=== PATIENT | male | born 1940 | race Caucasian/White ===

== ENCOUNTER 2016-10-25 16:45 | Inpatient (IN) | payer MEDICARE, OTHER ==
[2016-10-25] MEDS ORDERED: Sodium Chloride 0.9% 10 ML Syringe FLUSH PRN (17:11)
[2016-10-25] MEDS ORDERED: Acetaminophen 1,000 MG in Premix Bag 1 BAG IV ONE (17:18)
[2016-10-25] MEDS ORDERED: Sodium Chloride 0.9% 1,000 ML IV SCH (17:30)
--- NOTE | 2016-10-25 17:36 | EDM.PDOC ---
ED HPI GENERAL MEDICAL PROBLEM - General Chief Complaint: Abdominal Pain Stated Complaint: ILLNESS [facility]IA [facility] Time Seen by Provider: 10/25/16 16:50 Source of Information: Reports: Patient, Family History Limitations: Reports: Altered Mental Status, Other (Fever, delerium) - History of Present Illness INITIAL COMMENTS - FREE TEXT/NARRATIVE: Patient presents with his via EMS with complaints of fever, confusion, change in mental status since return home from [facility] visit today. Ranjan presented to the clinic today with complaint of abdominal pain and rash. He did not have lab work completed, was treated for lymes disease and sent home. He took one dose of ordered antibiotic. Shortly after his return home today, his fever worsened, he became weak and confused. 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 ) - Related Data Allergies Allergy/AdvReac Type Severity Reaction Status Date / Time adhesive tape Allergy Rash Verified 12/05/15 11:42 glipizide Allergy Other Verified 12/05/15 11:42 Influenza Virus Vaccines Allergy Cannot Verified 12/05/15 15:19 Remember latex Allergy Rash Verified 12/05/15 11:42 metolazone Allergy Other Verified 12/05/15 11:42 morphine AdvReac Hallucinati Verified 12/05/15 15:19 ons Home Meds: Home Meds Albuterol Sulfate [Proair Hfa] 2 puff IH Q6HR 05/21/14 [History] Allopurinol [Zyloprim] 100 mg PO DAILY 05/21/14 [History] Betamethasone Dipropionate [Diprolene 0.05% Oint] 1 applic TOP BID 05/21/14 [ History] Furosemide [Furosemide] 60 mg PO DAILY 05/21/14 [History] Insulin Aspart [NovoLOG] 1 unit SQ ASDIRECTED PRN 05/21/14 [History] Insulin Detemir [Levemir Flextouch] 80 unit SQ BEDTIME 05/21/14 [History] Levothyroxine [Synthroid] 50 mcg PO QAM 05/21/14 [History] Lovastatin [Lovastatin] 80 mg PO BEDTIME 05/21/14 [History] Nitroglycerin [Nitrostat] 0.4 mg SL ASDIRECTED 05/21/14 [History] Warfarin Sodium [Warfarin Sodium] 7.5 mg PO ASDIRECTED 05/21/14 [History] Aspirin [Low Dose Aspirin EC] 81 mg PO DAILY 05/15/15 [History] Fluticasone Propionate [Flonase] 16 gm IN BID 05/15/15 [History] Mupirocin [Bactroban] 22 gm TP TID 05/15/15 [History] Urea [Urea 40% Crm] 28.35 gm TOP BID 05/15/15 [History] Cholecalciferol (Vitamin D3) [Vitamin D3] 2,000 units PO DAILY 12/05/15 [History ] Nortriptyline HCl 75 mg PO BEDTIME 12/05/15 [History] Doxycycline [Vibramycin] 1 tab PO BID 10/25/16 [History] Gabapentin [Gabapentin] 1 tab PO TID 10/25/16 [History] Past Medical History HEENT History: Reports: Allergic Rhinitis, Hard of Hearing, Other (See Below) Other HEENT History: broken nose Cardiovascular History: Reports: CAD, High Cholesterol, Hypertension, [place], Stents Respiratory History: Reports: COPD, PE Genitourinary History: Reports: Other (See Below) Other Genitourinary History: Chronic Kidney Disease Musculoskeletal History: Reports: Fracture Neurological History: Reports: CVA Psychiatric History: Reports: Depression Endocrine/Metabolic History: Reports: Diabetes, Type II, IDDM, Obesity/BMI 30+ Hematologic History: Reports: Blood Transfusion(s) Oncologic (Cancer) History: Reports: Prostate Dermatologic History: Reports: Other (See Below) Other Dermatologic History: rash - Past Surgical History HEENT Surgical History: Reports: Cataract Surgery, Other (See Below) Cardiovascular Surgical History: Reports: Coronary Artery Stent GI Surgical History: Reports: Cholecystectomy Endocrine Surgical History: Reports: Other (See Below) Musculoskeletal Surgical History: Reports: Shoulder Surgery Other Oncologic Surgeries/Procedures: Had radiation for prostate, so far in remission Social & Family History - Tobacco Use Smoking Status *Q: Never Smoker Years of Tobacco use: 18 Packs/Tins Daily: 0.5 Second Hand Smoke Exposure: No - Alcohol Use Days Per Week of Alcohol Use: 7 Number of Drinks Per Day: 3 Total Drinks Per Week: 21 - Recreational Drug Use Recreational Drug Use: No ED ROS GENERAL - Review of Systems Review Of Systems: See Below Constitutional: Reports: Fever, Chills, Malaise, Weakness. Denies: Night Sweats , Diaphoresis HEENT: Reports: No Symptoms Respiratory: Reports: Shortness of Breath. Denies: Wheezing, Pleuritic Chest Pain, Cough, Sputum, Hemoptysis Cardiovascular: Reports: Dyspnea on Exertion, Edema. Denies: Chest Pain, Blood Pressure Problem, Lightheadedness, Orthopnea, Palpitations, PND, Syncope Endocrine: Denies: High Glucose, Low Glucose, Polydypsia, Polyuria GI/Abdominal: Reports: Abdominal Pain, Decreased Appetite, Distension. Denies: Black Stool, Bloody Stool, Constipation, Diarrhea, Difficulty Swallowing, Hematemesis, Melena, Nausea, Vomiting : Reports: Flank Pain, Pain, Other (left flank pain). Denies: Dysuria, Frequency, Hematuria, Incontinence, Urgency Musculoskeletal: Reports: Leg Pain, Joint Pain, Muscle Pain Skin: Reports: Rash, Erythema Neurological: Reports: Confusion, Difficulty Walking, Weakness. Denies: Dizziness, Headache, Numbness, Paresthesia, Syncope, Tingling, Trouble Speaking , Change in Speech, Gait Disturbance Psychiatric: Reports: Confusion. Denies: Agitation, Anxiety, Hallucinations Hematologic/Lymphatic: Reports: No Symptoms Immunologic: Reports: No Symptoms ED EXAM, SEPSIS - Physical Exam Exam: See Below Text/Narrative:: Ranjan is a 76 year old male presenting to the ER with confusion, change in mental status, fever, weakness and erythema to abdomen with abdominal pain. Exam Limited By: Other (Patient alert to self and place, not alert to day or time or situation.) Eye Exam: Bilateral Eye: EOMI, PERRL Ears: Normal External Exam, Normal Canal, Hearing Grossly Normal, Normal TMs Nose: Normal Inspection, Normal Mucosa, No Blood Throat/Mouth: Normal Teeth, Normal Voice, No Airway Compromise, Other (dry mucus membranes. ). No: Bleeding, Lip Swelling, Lip Ulcers Head: Atraumatic, Normocephalic Neck: Normal Inspection, Supple, Non-Tender, Full Range of Motion. No: Lymphadenopathy (R), Lymphadenopathy (L) Respiratory/Chest: No Respiratory Distress, Lungs Clear, Normal Breath Sounds, No Accessory Muscle Use, Chest Non-Tender. No: Accessory Muscle Use, Retractions Cardiovascular: Normal Peripheral Pulses, Regular Rate, Rhythm, No Murmur, No Rub, Other (2+ edema to bilateral lower extremities, no change from baseline normal. ) Peripheral Pulses: 2+: Radial (L), Radial (R), Dorsalis Pedis (L), Dorsalis Pedis (R) GI/Abdominal: Distended, Tenderness, Guarding, Hypoactive Bowel Sounds, Other ( Abdominal pain to abdomen at RUQ, RLQ. Area of erythema covers mid-abdomen across midline, area marked with indelible marker. ) (Male) Exam: No: Inguinal Lymphadenopathy, Penile Lesions, Rash, Scrotum Tenderness (L), Scrotum Tenderness (R), Testicular Tenderness (L), Testicular Tenderness (R) Back: Normal Inspection, Full Range of Motion. No: CVA Tenderness (R), CVA Tenderness (L) Extremities: Non-Tender, Pedal Edema, Leg Pain. No: Joint Swelling, Srikanth's Sign, Mottled, Pallor, Redness Neurological: Confused, Disoriented, Other (Responds to questions, alert to person, not to day, time or situation. ) Psychiatric: Flat Affect Skin: Dry, Erythema, Rash, Other (Rash to abdomen as described above. ) Lymphatic: Bilateral: No Adenopathy Course - Vital Signs Last Recorded V/S: Last Vital Signs Temp 38.0 C 10/25/16 19:55 Pulse 84 10/25/16 19:55 Resp 20 10/25/16 19:55 BP 132/71 10/25/16 19:55 Pulse Ox 93 L 10/25/16 19:55 - Orders/Labs/Meds Orders: Active Orders 24 hr Category Date Time Status EKG Documentation Completion [RC] ASDIRECTED Care 10/25/16 17:11 Active Chest Abdomen Pelvis wo Cont [CT] Stat Exams 10/25/16 18:07 Taken BABESIA MICROTI IGG AND IGM [REF] Stat Lab 10/25/16 17:20 Received CULTURE BLOOD [BC] Stat Lab 10/25/16 17:20 Received CULTURE BLOOD [BC] Stat Lab 10/25/16 17:30 Received CULTURE URINE [RM] Stat Lab 10/25/16 18:52 Received EHRLICHIA CHAFFEENSIS, IGG&IGM [REF] Stat Lab 10/25/16 17:20 Received Sodium Chloride 0.9% [Normal Saline] 1,000 ml Med 10/25/16 17:30 Active IV ASDIRECTED Sodium Chloride 0.9% [Saline Flush] Med 10/25/16 17:11 Active 10 ml FLUSH ASDIRECTED PRN Saline Lock Insert [OM.PC] Routine Oth 10/25/16 17:11 Ordered EKG 12 Lead [EK] Routine Ther 10/25/16 17:11 Ordered Medication Orders Hydrocodone Bitart/Acetaminophen ([place] 325-5 Mg) 1 tab PO Q4H PRN PRN Reason: Pain (moderate 4-6) Albuterol (Ventolin Hfa) 0 gm INH Q6HR OTON[facility]EL Allopurinol (Zyloprim) 100 mg PO DAILY O[facility]EL Aspirin (Halfprin) 81 mg PO DAILY O[facility] Fluticasone Propionate (Flonase) 0 gm KARIN BID OTONIEL Furosemide (Lasix) 60 mg PO DAILY OTONIEL Gabapentin (Neurontin) 300 mg PO TID OTONIEL Gabapentin (Neurontin) 300 - 600 mg PO TID OTONIEL Sodium Chloride (Normal Saline) 1,000 mls @ 250 mls/hr IV ASDIRECTED OTONIEL Last Admin: 10/25/16 18:04 Dose: 250 mls/hr Sodium Chloride (Normal Saline) 1,000 mls @ 125 mls/hr IV ASDIRECTED [facility] Cefazolin Sodium 1,000 mg/ (Sodium Chloride) 50 mls @ 100 mls/hr IV Q6H [facility] Insulin Aspart (Novolog) 1 unit SUBCUT ASDIRECTED PRN PRN Reason: Blood Glucose Insulin Detemir (Levemir) 80 unit SUBCUT BEDTIME [facility] Levothyroxine Sodium (Synthroid) 50 mcg PO QAM OTONIEL Lovastatin (Mevacor) 80 mg PO BEDTIME OTONIEL Mupirocin (Bactroban Oint) 0 gm TOP TID O[facility] Nitroglycerin (Nitrostat) 0.4 mg SL Q5M PRN PRN Reason: CHEST PAIN Non-Formulary Medication (Urea [Urea 40% Crm]) 28.35 gm TOP BID OTONIEL Nortriptyline HCl (Nortriptyline) 75 mg PO BEDTIME OTONIEL Sodium Chloride (Saline Flush) 10 ml FLUSH ASDIRECTED PRN PRN Reason: Keep Vein Open Last Admin: 10/25/16 18:08 Dose: 10 ml Warfarin Sodium (Coumadin) 7.5 mg PO ASDIRECTED [facility] Labs: Laboratory Tests 10/25/16 10/25/16 10/25/16 Range/Units 17:20 17:20 17:20 WBC 11.6 H (4.5-11.0) K/uL RBC 6.11 H (4.30-5.90) M/uL Hgb 19.0 H* (12.0-15.0) g/dL Hct 55.2 H (40.0-54.0) % MCV 90 (80-98) fL MCH 31 (27-31) pg MCHC 34 (32-36) % Plt Count 142 L (150-400) K/uL Neut % (Auto) 87 H (36-66) % Lymph % (Auto) 5 L (24-44) % Story % (Auto) 7 H (2-6) % Eos % (Auto) 0 L (2-4) % Baso % (Auto) 0 (0-1) % PT (9.5-12.0) sec INR (0.80-1.20) APTT (27.0-36.0) sec Puncture Site ABG pH (7.350-7.450) ABG pCO2 (35.0-42.0) mmHg ABG pO2 (75.0-100.0) mmHg ABG HCO3 (22.0-26.0) mmol/L ABG Total CO2 (23.0-27.0) mmol/L ABG O2 Saturation (95.0-98.0) % ABG O2 Content (15.0-23.0) %vol ABG Base Excess mm/L ABG Hemoglobin (13.5-18.0) g/dL ABG Oxyhemoglobin % ABG Carboxyhemoglobin (0.0-1.6) % ABG Methemoglobin % Desmond Test O2 Delivery Device Sodium 139 L (140-148) mmol/L Potassium 3.1 L (3.6-5.2) mmol/L Chloride 98 L (100-108) mmol/L Carbon Dioxide 37 H (21-32) mmol/L Anion Gap 7.1 (5.0-14.0) mmol/L BUN 18 D (7-18) mg/dL Creatinine 1.5 H (0.8-1.3) mg/dL Est Cr Clr Drug Dosing 46.70 mL/min Estimated GFR (MDRD) 46 L (>60) Glucose 86 (74-106) mg/dL Lactic Acid 1.5 (0.4-2.0) mmol/L Calcium 8.8 (8.5-10.1) mg/dL Total Bilirubin 1.9 H D (0.2-1.0) mg/dL AST 30 (15-37) U/L ALT 37 (12-78) U/L Alkaline Phosphatase 105 (46-116) U/L C-Reactive Protein 3.22 H (0.0-0.3) mg/dL Total Protein 7.7 (6.4-8.2) g/dL Albumin 3.5 (3.4-5.0) g/dL Globulin 4.2 H (2.3-3.5) g/dL Albumin/Globulin Ratio 0.8 L (1.2-2.2) TSH, Ultra Sensitive (0.358-3.740) uIU/mL Urine Color Urine Appearance Urine pH (4.5-8.0) Ur Specific Coleman (1.008-1.030) Urine Protein (NEGATIVE) mg/dL Urine Glucose (UA) (NEGATIVE) mg/dL Urine Ketones (NEGATIVE) mg/dL Urine Occult Blood (NEGATIVE) Urine Nitrite (NEGAITVE) Urine Bilirubin (NEGATIVE) Urine Urobilinogen (NORMAL) mg/dL Ur Leukocyte Esterase (NEGATIVE) Urine RBC (0-5) Urine WBC (0-5) Ur Epithelial Cells Amorphous Sediment Urine Bacteria Urine Mucus 10/25/16 10/25/16 10/25/16 Range/Units 17:20 17:20 18:29 WBC (4.5-11.0) K/uL RBC (4.30-5.90) M/uL Hgb (12.0-15.0) g/dL Hct (40.0-54.0) % MCV (80-98) fL MCH (27-31) pg MCHC (32-36) % Plt Count (150-400) K/uL Neut % (Auto) (36-66) % Lymph % (Auto) (24-44) % Story % (Auto) (2-6) % Eos % (Auto) (2-4) % Baso % (Auto) (0-1) % PT 19.8 H (9.5-12.0) sec INR 1.81 H (0.80-1.20) APTT 35.0 (27.0-36.0) sec Puncture Site Rt.radial ABG pH 7.479 H (7.350-7.450) ABG pCO2 40.8 (35.0-42.0) mmHg ABG pO2 54.8 L (75.0-100.0) mmHg ABG HCO3 30.0 H (22.0-26.0) mmol/L ABG Total CO2 24.5 (23.0-27.0) mmol/L ABG O2 Saturation 90.2 L (95.0-98.0) % ABG O2 Content 22.6 (15.0-23.0) %vol ABG Base Excess 6.3 mm/L ABG Hemoglobin 18.2 H (13.5-18.0) g/dL ABG Oxyhemoglobin 88.5 % ABG Carboxyhemoglobin 1.3 (0.0-1.6) % ABG Methemoglobin 0.6 % Desmond Test Passed O2 Delivery Device Room air Sodium (140-148) mmol/L Potassium (3.6-5.2) mmol/L Chloride (100-108) mmol/L Carbon Dioxide (21-32) mmol/L Anion Gap (5.0-14.0) mmol/L BUN (7-18) mg/dL Creatinine (0.8-1.3) mg/dL Est Cr Clr Drug Dosing mL/min Estimated GFR (MDRD) (>60) Glucose (74-106) mg/dL Lactic Acid (0.4-2.0) mmol/L Calcium (8.5-10.1) mg/dL Total Bilirubin (0.2-1.0) mg/dL AST (15-37) U/L ALT (12-78) U/L Alkaline Phosphatase (46-116) U/L C-Reactive Protein (0.0-0.3) mg/dL Total Protein (6.4-8.2) g/dL Albumin (3.4-5.0) g/dL Globulin (2.3-3.5) g/dL Albumin/Globulin Ratio (1.2-2.2) TSH, Ultra Sensitive 0.792 (0.358-3.740) uIU/mL Urine Color Urine Appearance Urine pH (4.5-8.0) Ur Specific Coleman (1.008-1.030) Urine Protein (NEGATIVE) mg/dL Urine Glucose (UA) (NEGATIVE) mg/dL Urine Ketones (NEGATIVE) mg/dL Urine Occult Blood (NEGATIVE) Urine Nitrite (NEGAITVE) Urine Bilirubin (NEGATIVE) Urine Urobilinogen (NORMAL) mg/dL Ur Leukocyte Esterase (NEGATIVE) Urine RBC (0-5) Urine WBC (0-5) Ur Epithelial Cells Amorphous Sediment Urine Bacteria Urine Mucus 10/25/16 Range/Units 18:52 WBC (4.5-11.0) K/uL RBC (4.30-5.90) M/uL Hgb (12.0-15.0) g/dL Hct (40.0-54.0) % MCV (80-98) fL MCH (27-31) pg MCHC (32-36) % Plt Count (150-400) K/uL Neut % (Auto) (36-66) % Lymph % (Auto) (24-44) % Story % (Auto) (2-6) % Eos % (Auto) (2-4) % Baso % (Auto) (0-1) % PT (9.5-12.0) sec INR (0.80-1.20) APTT (27.0-36.0) sec Puncture Site ABG pH (7.350-7.450) ABG pCO2 (35.0-42.0) mmHg ABG pO2 (75.0-100.0) mmHg ABG HCO3 (22.0-26.0) mmol/L ABG Total CO2 (23.0-27.0) mmol/L ABG O2 Saturation (95.0-98.0) % ABG O2 Content (15.0-23.0) %vol ABG Base Excess mm/L ABG Hemoglobin (13.5-18.0) g/dL ABG Oxyhemoglobin % ABG Carboxyhemoglobin (0.0-1.6) % ABG Methemoglobin % Desmond Test O2 Delivery Device Sodium (140-148) mmol/L Potassium (3.6-5.2) mmol/L Chloride (100-108) mmol/L Carbon Dioxide (21-32) mmol/L Anion Gap (5.0-14.0) mmol/L BUN (7-18) mg/dL Creatinine (0.8-1.3) mg/dL Est Cr Clr Drug Dosing mL/min Estimated GFR (MDRD) (>60) Glucose (74-106) mg/dL Lactic Acid (0.4-2.0) mmol/L Calcium (8.5-10.1) mg/dL Total Bilirubin (0.2-1.0) mg/dL AST (15-37) U/L ALT (12-78) U/L Alkaline Phosphatase (46-116) U/L C-Reactive Protein (0.0-0.3) mg/dL Total Protein (6.4-8.2) g/dL Albumin (3.4-5.0) g/dL Globulin (2.3-3.5) g/dL Albumin/Globulin Ratio (1.2-2.2) TSH, Ultra Sensitive (0.358-3.740) uIU/mL Urine Color Yellow Urine Appearance Clear Urine pH 6.5 (4.5-8.0) Ur Specific Coleman 1.015 (1.008-1.030) Urine Protein Negative (NEGATIVE) mg/dL Urine Glucose (UA) Normal (NEGATIVE) mg/dL Urine Ketones Negative (NEGATIVE) mg/dL Urine Occult Blood Negative (NEGATIVE) Urine Nitrite Negative (NEGAITVE) Urine Bilirubin Negative (NEGATIVE) Urine Urobilinogen Normal (NORMAL) mg/dL Ur Leukocyte Esterase Negative (NEGATIVE) Urine RBC 0-5 (0-5) Urine WBC 0-5 (0-5) Ur Epithelial Cells Rare Amorphous Sediment Not seen Urine Bacteria Rare Urine Mucus Not seen Patient lab work reviewed with his , we will complete ABGs and CT. ABGs show metabolic alkalosis secondary to respiratory alkalosis. Meds: Medications Generic Name Dose Route Start Last Admin Trade Name Freq PRN Reason Stop Dose Admin Hydrocodone Bitart/Acetaminophen 1 tab 10/25/16 20:59 [place] 325-5 Mg PO Q4H PRN Pain (moderate 4-6) Albuterol 0 gm 10/25/16 22:00 Ventolin Hfa INH Q6HR OTONIEL Allopurinol 100 mg 10/26/16 09:00 Zyloprim PO DAILY OTONIEL Aspirin 81 mg 10/26/16 09:00 Halfprin PO DAILY OTONIEL Fluticasone Propionate 0 gm 10/26/16 09:00 Flonase KARIN BID OTONIEL Furosemide 60 mg 10/26/16 09:00 Lasix PO DAILY OTONIEL Gabapentin 300 mg 10/26/16 09:00 Neurontin PO TID OTONIEL Gabapentin 300 - 600 mg 10/26/16 09:00 Neurontin PO TID OTONIEL Sodium Chloride 1,000 mls @ 250 mls/hr 10/25/16 17:30 10/25/16 18:04 Normal Saline IV 250 mls/hr ASDIRECTED OTONIEL Administration Sodium Chloride 1,000 mls @ 125 mls/hr 10/25/16 21:00 Normal Saline IV ASDIRECTED [facility] Cefazolin Sodium 1,000 mg/ 50 mls @ 100 mls/hr 10/26/16 02:00 Sodium Chloride IV Q6H [facility] Insulin Aspart 1 unit 10/25/16 21:04 Novolog SUBCUT ASDIRECTED PRN Blood Glucose Insulin Detemir 80 unit 10/26/16 21:00 Levemir SUBCUT BEDTIME [facility] Levothyroxine Sodium 50 mcg 10/26/16 09:00 Synthroid PO QAM [facility] Lovastatin 80 mg 10/26/16 21:00 Mevacor PO BEDTIME [facility] Mupirocin 0 gm 10/26/16 09:00 Bactroban Oint TOP TID [facility] Nitroglycerin 0.4 mg 10/25/16 21:15 Nitrostat SL Q5M PRN CHEST PAIN Non-Formulary Medication 28.35 gm 10/26/16 09:00 Urea [Urea 40% Crm] TOP BID [facility] Nortriptyline HCl 75 mg 10/26/16 21:00 Nortriptyline PO BEDTIME [facility] Sodium Chloride 10 ml 10/25/16 17:11 10/25/16 18:08 Saline Flush FLUSH 10 ml ASDIRECTED PRN Administration Keep Vein Open Warfarin Sodium 7.5 mg 10/25/16 21:15 Coumadin PO ASDIRECTED [facility] Discontinued Medications Generic Name Dose Route Start Last Admin Trade Name Freq PRN Reason Stop Dose Admin Acetaminophen 1,000 mg/ Premix 100 mls @ 400 mls/hr 10/25/16 17:18 10/25/16 18:05 IV 10/25/16 17:32 400 mls/hr NOW ONE Administration Cefazolin Sodium 2,000 mg/ 50 mls @ 100 mls/hr 10/25/16 20:21 10/25/16 20:32 Sodium Chloride IV 10/25/16 20:50 Not Given ONETIME ONE Cefazolin Sodium/Dextrose 2 gm 50 mls @ 100 mls/hr 10/25/16 20:31 10/25/16 20 :32 / Premix IV 10/25/16 21:00 100 mls/hr ONETIME ONE Administration Potassium Chloride 40 meq 10/25/16 21:15 Klor-Con M20 PO 10/25/16 21:16 ONETIME ONE - Radiology Interpretation CT Results Date: 10/25/16 (CT Chest and abdomen report: No identified source of abdominal pain and fever seen. Severe coronary artery athercsclerotic calcifications are noted. Mild compression deformities are present at T6, T7 and moderate compression T8 noted. Correlation with physical exam for focal tenderness in this region is recommended to exclude an acute fracture. ) - Re-Assessments/Exams Free Text/Narrative Re-Assessment/Exam: 10/25/16 20:[address] results. Free Text/Narrative Re-Assessment/Exam: 10/25/16 20:22 Patient status discussed with Dr. Souza and Dr. Fernandez. Dr. Fernandez will be in to evaluate patient for hospital admission. Ancef 2 grams IV will be administered. Departure - Departure Time of Disposition: 20:18 Disposition: Admitted As Inpatient 67 Condition: Poor Clinical Impression: Cellulitis, Mental status change - Discharge Information - My Orders Last 24 Hours: My Active Orders 10/25/16 17:11 EKG Documentation Completion [RC] ASDIRECTED Sodium Chloride 0.9% [Saline Flush] 10 ml FLUSH ASDIRECTED PRN Saline Lock Insert [OM.PC] Routine EKG 12 Lead [EK] Routine 10/25/16 17:20 BABESIA MICROTI IGG AND IGM [REF] Stat CULTURE BLOOD [BC] Stat EHRLICHIA CHAFFEENSIS, IGG&IGM [REF] Stat 10/25/16 17:30 CULTURE BLOOD [BC] Stat Sodium Chloride 0.9% [Normal Saline] 1,000 ml IV ASDIRECTED 10/25/16 18:07 Chest Abdomen Pelvis wo Cont [CT] Stat 10/25/16 18:52 CULTURE URINE [RM] Stat - Assessment/Plan Last 24 Hours: My Active Orders 10/25/16 17:11 EKG Documentation Completion [RC] ASDIRECTED Sodium Chloride 0.9% [Saline Flush] 10 ml FLUSH ASDIRECTED PRN Saline Lock Insert [OM.PC] Routine EKG 12 Lead [EK] Routine 10/25/16 17:20 BABESIA MICROTI IGG AND IGM [REF] Stat CULTURE BLOOD [BC] Stat EHRLICHIA CHAFFEENSIS, IGG&IGM [REF] Stat 10/25/16 17:30 CULTURE BLOOD [BC] Stat Sodium Chloride 0.9% [Normal Saline] 1,000 ml IV ASDIRECTED 10/25/16 18:07 Chest Abdomen Pelvis wo Cont [CT] Stat 10/25/16 18:52 CULTURE URINE [RM] Stat Assessment:: Change in mental status ABGs show metabolic alkalosis secondary to respiratory alkalosis. Cellulitis of abdomen Abdominal pain Plan: Patient to be admitted inpatient per Dr. Fernandez.
[2016-10-25] MEDS ORDERED: ceFAZolin 2 GM in Premix Bag 1 BAG IV ONE (20:31)
[2016-10-25] MEDS ORDERED: Insulin Aspart 100 Units/ML 3 ML Pen SUBCUT PRN (21:04)
[2016-10-25] MEDS ORDERED: Potassium Chloride 20 MEQ Tab.ER PO ONE (21:15)
[2016-10-25] MEDS ORDERED: Warfarin 5 MG Tab PO SCH (21:15)
[2016-10-25] MEDS ORDERED: Nitroglycerin 0.4 MG Tab.SL SL PRN (21:15)
[2016-10-25] MEDS: Albuterol 8 GM Inhaler INH SCH (22:36)
[2016-10-25] MEDS: Acetaminophen/HYDROcodone 325-5 MG Tab PO PRN (22:41)
[2016-10-25] MEDS: Sodium Chloride 0.9% 1,000 ML IV SCH (22:44)
[2016-10-25] MEDS ORDERED: Gabapentin 300 MG Cap PO PRN (23:12)
[2016-10-25] MEDS ORDERED: Nortriptyline 25 MG Cap PO ONE (23:30)
[2016-10-25] MEDS ORDERED: Gabapentin 300 MG Cap PO ONE (23:30)
[2016-10-25] MEDS ORDERED: Insulin Detemir 100 Units/ML 3 ML Pen SUBCUT ONE (23:30)
[2016-10-26] MEDS ORDERED: ceFAZolin 1 GM Vial ONE (01:14)
[2016-10-26] MEDS ORDERED: Sodium Chloride 0.9% 50 ML ONE (01:14)
--- NOTE | 2016-10-26 01:45 | HP ---
CHIEF COMPLAINT: Rash to his abdomen with confusion. HISTORY OF PRESENT ILLNESS: A 76-year-old, who apparently has not been acting himself today and running a fever, had a nonproductive rash to his abdomen, had no known tick bite, was seen in walk-in clinic, he thought maybe had Lyme's rash, started him on doxycycline, but became more confused and feverish. He was brought in by [facility]. He was evaluated by emergency room staff, was felt to have cellulitis and mental status change associated with this. I was asked to admit the patient for further evaluation and treatment. He did report some generalized abdominal discomfort. No itching. According to his , he is quite confused than at other times seems to be more lucid. He has had no chest pain. Does have a little bit of shortness of breath but pretty much this is his baseline. PAST MEDICAL HISTORY: 1. 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 2. Three heart attacks in the past. 3. Right rotator cuff tear. 4. 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 5. Hyperlipidemia. MEDICATIONS: Warfarin 7.5 mg as directed by [facility], Urea cream, nortriptyline 75 mg at bedtime, nitroglycerin p.r.n., Bactroban ointment topically t.i.d., lovastatin 80 mg at bedtime, levothyroxine 50 mcg daily, Levemir insulin, NovoLog insulin, and gabapentin 300 mg t.i.d. but can take up to two pills at a time, furosemide 40 mg tablets 60 mg daily, Flonase nasal spray b.i.d., doxycycline just started on today, vitamin D, Diprolene ointment b.i.d., aspirin 81 mg daily, allopurinol 100 mg daily, albuterol inhaler p.r.n. ALLERGIES: ADHESIVE TAPE, GLIPIZIDE, INFLUENZA VACCINE, LATEX. SOCIAL HISTORY: He smokes pipe, rare alcohol use. . FAMILY HISTORY: Diabetes in the family. REVIEW OF SYSTEMS: A little bit of a headache. No vision changes. No upper respiratory symptoms. Does have a little bit of shortness of breath, but no chest pain. He does have diffuse abdominal pain which is mild. No nausea, vomiting, diarrhea, constipation. No urinary problems reported. Denies any significant swelling in his legs. At present, skin problems as above. Neurologic, his main complaint is the neuropathy feeling of ice pricks he complained about today in both feet. OBJECTIVE: VITAL SIGNS: Temperature 39.1, now 38.0; pulse 106, now 94; blood pressure 129/94, now 132/71; respiratory rate 18 to 20; O2 saturation 89% when he first arrived, now 93%. GENERAL: The patient seems to be fairly alert, but at times, does get confused. HEENT: Ears clear. Oropharynx clear. No dentition. Slight dry mucous membranes. NECK: Supple. No adenopathy, thyromegaly, JVD, or carotid bruits. LUNGS: Clear. HEART: Regular without murmurs. ABDOMEN: Soft. Mild diffuse discomfort. Did have large patch of erythema in the right upper quadrant extending to the left upper quadrant. Lower abdomen is free of any rash. He does have some small scabs from where he gives himself insulin. EXTREMITIES: He does have some areas of scab with slight swelling and discomfort to his right 2nd toe, but I do not see any signs of infection or erythema or drainage at this area. It is bandaged. He does have significant neuropathy in his feet and lower legs. ASSESSMENT: 1. Fever with confusion felt to be secondary to cellulitis in his legs. Patient is DNR/DNI per his request. We will admit him. Has been already started on IV Ancef which will continue. [place] that he possibly had tick illness. Tick tests were drawn in the ER and are pending, although it does not look like a typical EM rash. We will hold the doxycycline for now. 2. Type 2 diabetes mellitus, q.i.d. Accu-Cheks with significant peripheral neuropathy. We will add some hydrocodone as needed for pain while he is here and we can try increasing the gabapentin which he does from time to time at home. Anticipate length of stay more than two midnights inpatient status. Other medical problems as listed above. Santosh Fernandez MD /[id number]
[2016-10-26] MEDS: Albuterol 8 GM Inhaler INH SCH ×4 (04:18→21:38)
[2016-10-26] MEDS ORDERED: Lidocaine 2% Jelly 10 ML Urojet MUCMEM ONE ×2 (04:22→05:27)
[2016-10-26] MEDS: Sodium Chloride 0.9% 1,000 ML IV SCH ×2 (06:30→15:25)
[2016-10-26] MEDS: Levothyroxine 50 MCG Tab PO SCH (08:37)
[2016-10-26] MEDS: Mupirocin Oint 22 GM Tube TOP SCH ×3 (08:39→21:40)
[2016-10-26] MEDS: Aspirin 81 MG Tab.EC PO SCH (08:42)
[2016-10-26] MEDS: Allopurinol 100 MG Tab PO SCH (08:42)
[2016-10-26] MEDS: Furosemide 20 MG Tab PO SCH (08:42)
[2016-10-26] MEDS: Gabapentin 300 MG Cap PO SCH ×3 (08:42→21:41)
[2016-10-26] MEDS: Fluticasone Propionate Nasal Spray 16 GM Bottle NAS SCH ×2 (08:43→21:40)
[2016-10-26] MEDS: Acetaminophen/HYDROcodone 325-5 MG Tab PO PRN ×2 (08:49→17:45)
[2016-10-26] MEDS: ceFAZolin 1 GM in Premix Bag 1 BAG IV SCH ×3 (08:50→20:00)
[2016-10-26] MEDS ORDERED: Levothyroxine 50 MCG Tab PO SCH (09:00)
[2016-10-26] MEDS ORDERED: Insulin Aspart 100 Units/ML 3 ML Pen SUBCUT SCH (09:00)
[2016-10-26] MEDS ORDERED: Gabapentin 300 MG Cap PO SCH ×2 (09:00)
[2016-10-26] MEDS ORDERED: Potassium Chloride 40 MEQ in Premix Bag 1 BAG IV ONE (09:44)
[2016-10-26] MEDS: Insulin Aspart 100 Units/ML 3 ML Pen SUBCUT SCH ×3 (10:06→17:37)
[2016-10-26] MEDS: Potassium Chloride 20 MEQ, Lidocaine 1% 2 ML in Sodium Chloride 0.9% 100 ML IV SCH ×2 (10:20→13:08)
[2016-10-26] MEDS ORDERED: Potassium Chloride 20 MEQ Tab.ER PO ONE (10:30)
[2016-10-26] MEDS ORDERED: Warfarin 5 MG Tab PO SCH (13:00)
--- NOTE | 2016-10-26 14:02 | PCM.PN ---
- General Info Date of Service: 10/26/16 Functional Status: Reports: pain controlled, tolerating diet - Review of Systems General: Reports: Weakness. Denies: Fever, Chills Pulmonary: Reports: no symptoms Cardiovascular: Reports: No Symptoms Gastrointestinal: Reports: Other (Abdominal wall pain secondary to cellulitis). Denies: Decreased appetite, Diarrhea, Nausea, Vomiting Systems Review Comment:: This patient is a 76-year-old gentleman who is admitted through the emergency department last night by Dr. Fernandez. He presented with abdominal wall pain and obvious cellulitis, associated with weakness and some confusion. Blood cultures have been obtained in the has been started on cefazolin. He feels improved with less weakness and confusion appears to have resolved. There was an element of sepsis that also has resolved. - Patient Data Vitals - most recent: Last Vital Signs Temp 97.7 F 10/26/16 11:36 Pulse 55 L 10/26/16 11:36 Resp 16 10/26/16 11:36 BP 96/57 L 10/26/16 11:36 Pulse Ox 93 L 10/26/16 11:36 Weight - most recent: 262 lb 5.601 oz I&O - last 24 hours: Intake & Output 10/25/16 10/26/16 10/26/16 22:59 06:59 14:59 Intake Total 976 610 Output Total 1150 225 Balance -174 385 Lab Results last 24 hrs: Laboratory Results - last 24 hr 10/26/16 10/26/16 10/26/16 Range/Units 04:32 04:32 04:32 WBC 8.7 (4.5-11.0) K/uL RBC 5.37 (4.30-5.90) M/uL Hgb 16.8 H D (12.0-15.0) g/dL Hct 49.5 (40.0-54.0) % MCV 92 (80-98) fL MCH 31 (27-31) pg MCHC 34 (32-36) % Plt Count 130 L (150-400) K/uL PT 17.9 H (9.5-12.0) sec INR 1.64 H (0.80-1.20) Sodium 137 L (140-148) mmol/L Potassium 3.2 L (3.6-5.2) mmol/L Chloride 100 (100-108) mmol/L Carbon Dioxide 30 (21-32) mmol/L Anion Gap 10.2 (5.0-14.0) mmol/L BUN 17 (7-18) mg/dL Creatinine 1.3 (0.8-1.3) mg/dL Est Cr Clr Drug Dosing 53.89 mL/min Estimated GFR (MDRD) 54 L (>60) Glucose 125 H (74-106) mg/dL Calcium 7.9 L (8.5-10.1) mg/dL Med Orders - Current: Current Medications Hydrocodone Bitart/Acetaminophen ([place] 325-5 Mg) 1 tab PO Q4H PRN PRN Reason: Pain (moderate 4-6) Last Admin: 10/26/16 08:49 Dose: 1 tab Albuterol (Ventolin Hfa) 0 gm INH Q6HR [facility] Last Admin: 10/26/16 10:10 Dose: 2 inh Allopurinol (Zyloprim) 100 mg PO DAILY [facility] Last Admin: 10/26/16 08:42 Dose: 100 mg Aspirin (Halfprin) 81 mg PO DAILY [facility] Last Admin: 10/26/16 08:42 Dose: 81 mg Enoxaparin Sodium (Lovenox) 120 mg SUBCUT Q12HR [facility] Fluticasone Propionate (Flonase) 0 gm KARIN BID [facility] Last Admin: 10/26/16 08:43 Dose: Not Given Furosemide (Lasix) 60 mg PO DAILY [facility] Last Admin: 10/26/16 08:42 Dose: 60 mg Gabapentin (Neurontin) 300 mg PO TID PRN PRN Reason: Pain Last Admin: 10/26/16 04:33 Dose: 300 mg Gabapentin (Neurontin) 300 mg PO TID [facility] Last Admin: 10/26/16 08:42 Dose: 300 mg Sodium Chloride (Normal Saline) 1,000 mls @ 125 mls/hr IV ASDIRECTED [facility] Last Admin: 10/26/16 06:30 Dose: 125 mls/hr Cefazolin Sodium/Dextrose 1 gm (/ Premix) 50 mls @ 100 mls/hr IV Q6H [facility] Last Admin: 10/26/16 08:50 Dose: 100 mls/hr Potassium Chloride 20 meq/Lidocaine HCl 2 ml/ Sodium Chloride 112 mls @ 56 mls/ hr IV Q2H [facility] Stop: 10/26/16 14:29 Last Admin: 10/26/16 13:08 Dose: 56 mls/hr Insulin Aspart (Novolog) 29 unit SUBCUT WITHLUNCH [facility] Last Admin: 10/26/16 12:28 Dose: 29 units Insulin Aspart (Novolog) 33 unit SUBCUT WITHDINNER [facility] Insulin Aspart (Novolog) 37 unit SUBCUT WITHBREAKFAST [facility] Last Admin: 10/26/16 10:06 Dose: 37 units Insulin Detemir (Levemir) 80 unit SUBCUT BEDTIME [facility] Levothyroxine Sodium (Synthroid) 50 mcg PO DAILY@0730 [facility] Last Admin: 10/26/16 08:37 Dose: 50 mcg Lovastatin (Mevacor) 80 mg PO BEDTIME [facility] Mupirocin (Bactroban Oint) 0 gm TOP TID [facility] Last Admin: 10/26/16 08:39 Dose: 1 applic Nitroglycerin (Nitrostat) 0.4 mg SL Q5M PRN PRN Reason: CHEST PAIN Non-Formulary Medication (Urea [Urea 40% Crm]) 28.35 gm TOP BID [facility] Nortriptyline HCl (Nortriptyline) 75 mg PO BEDTIME [facility] Warfarin Sodium (Coumadin) 5 mg PO SuTuFr@1300 [facility] Last Admin: 10/26/16 13:08 Dose: 5 mg Warfarin Sodium (Coumadin) 7.5 mg PO MoWeThSa@1300 [facility] Discontinued Medications Cefazolin Sodium (Ancef) Confirm Administered Dose 1 gm .ROUTE .STK-MED ONE Stop: 10/26/16 01:15 Last Admin: 10/26/16 01:38 Dose: 1 gm Gabapentin (Neurontin) 300 mg PO TID [facility] Gabapentin (Neurontin) 300 - 600 mg PO TID [facility] Gabapentin (Neurontin) 300 mg PO ONETIME ONE Stop: 10/25/16 23:31 Last Admin: 10/25/16 23:36 Dose: 300 mg Acetaminophen 1,000 mg/ Premix 100 mls @ 400 mls/hr IV NOW ONE Stop: 10/25/16 17:32 Last Admin: 10/25/16 18:05 Dose: 400 mls/hr Sodium Chloride (Normal Saline) 1,000 mls @ 250 mls/hr IV ASDIRECTED [facility] Last Admin: 10/25/16 18:04 Dose: 250 mls/hr Cefazolin Sodium 2,000 mg/ (Sodium Chloride) 50 mls @ 100 mls/hr IV ONETIME ONE Stop: 10/25/16 20:50 Last Admin: 10/25/16 20:32 Dose: Not Given Cefazolin Sodium/Dextrose 2 gm (/ Premix) 50 mls @ 100 mls/hr IV ONETIME ONE Stop: 10/25/16 21:00 Last Admin: 10/25/16 20:32 Dose: 100 mls/hr Cefazolin Sodium 1,000 mg/ (Sodium Chloride) 50 mls @ 100 mls/hr IV Q6H [facility] Last Admin: 10/26/16 01:37 Dose: Not Given Sodium Chloride (Normal Saline) Confirm Administered Dose 50 mls @ as directed .ROUTE .STK-MED ONE Stop: 10/26/16 01:15 Last Admin: 10/26/16 01:38 Dose: 50 ml Insulin Detemir (Levemir) 80 unit SUBCUT BEDTIME [facility] Insulin Detemir (Levemir) 80 unit SUBCUT ONETIME ONE Stop: 10/25/16 23:31 Last Admin: 10/25/16 23:40 Dose: Not Given Lidocaine HCl (Xylocaine 2% Jelly) 10 ml MUCMEM ONETIME ONE Stop: 10/26/16 04:23 Last Admin: 10/26/16 06:39 Dose: Not Given Lidocaine HCl (Xylocaine 2% Jelly) 10 ml MUCMEM ONETIME ONE Stop: 10/26/16 05:28 Last Admin: 10/26/16 04:35 Dose: 10 ml Lovastatin (Mevacor) 80 mg PO BEDTIME [facility] Lovastatin (Mevacor) 80 mg PO ONETIME ONE Stop: 10/25/16 23:31 Last Admin: 10/25/16 23:47 Dose: 80 mg Nortriptyline HCl (Nortriptyline) 75 mg PO BEDTIME [facility] Nortriptyline HCl (Nortriptyline) 75 mg PO ONETIME ONE Stop: 10/25/16 23:31 Last Admin: 10/26/16 03:16 Dose: Not Given Potassium Chloride (Klor-Con M20) 40 meq PO ONETIME ONE Stop: 10/25/16 21:16 Last Admin: 10/25/16 22:34 Dose: 40 meq Potassium Chloride (Klor-Con M20) 40 meq PO ONETIME ONE Stop: 10/26/16 10:31 Last Admin: 10/26/16 10:19 Dose: 40 meq Sodium Chloride (Saline Flush) 10 ml FLUSH ASDIRECTED PRN PRN Reason: Keep Vein Open Last Admin: 10/25/16 18:08 Dose: 10 ml - Exam Quality Assessment: DVT prophylaxis General: alert, oriented, cooperative, no acute distress Lungs: Clear to auscultation, Normal respiratory effort Cardiovascular: Regular Rate, Regular Rhythm Abdomen: bowel sounds present, soft, no distension, other (Abdominal wall cellulitis, appears to be improved from admission). No: rigidity, rebound, guarding Extremities: no edema Skin: warm, dry, intact - Problem List Review Problem List Initiated/Reviewed/Updated: Yes - My Orders Last 24 Hours: My Active Orders 10/26/16 10:30 Potassium Chloride 20 meq Lidocaine 1% [Xylocaine 1%] 2 ml Sodium Chloride 0.9 % [Normal Saline] 100 ml IV Q2H 10/26/16 14:00 Enoxaparin [Lovenox] 120 mg SUBCUT Q12HR 10/27/16 05:00 BASIC METABOLIC PANEL,BMP [CHEM] Timed CBC WITH AUTO DIFF [HEME] Timed INR,PT,PROTHROMBIN TIME [COAG] Timed MAGNESIUM [CHEM] Timed - Plan Plan:: ASSESSMENT AND PLAN ABDOMINAL WALL CELLULITIS AND SEPSIS-improved since admission on current antibiotic therapy with cefazolin. -Continue cefazolin pending culture results -Continue IV fluids for hydration -Blood culture pending TYPE 2 DIABETES MELLITUS -Continue insulin therapy -4 times a day glucometers HISTORY OF DEEP VEIN THROMBOSIS AND PULMONARY EMBOLI-current INR subtherapeutic -Lovenox 120 mg subcutaneous every 12 hours until INR is within therapeutic range -Daily warfarin -INR in a.m. CHRONIC KIDNEY DISEASE STAGE III -Closely monitor urine output and renal function during hospital stay HYPOKALEMIA -IV and oral potassium replacement -Repeat potassium level in a.m. PALLIATIVE CARE-patient is DNR/DNI, he does not want further aggressive evaluation or interventions other than current management MAINTENANCE ISSUES -DVT prophylaxis; Lovenox 120 mg subcutaneous every 12 hours until INR is therapeutic -GI prophylaxis; not indicated -Mcdonald catheter; not indicated -Nutrition; consistent carb diet -Nicotine dependence; not required CODE STATUS-DNR/DNI ADMISSION STATUS-patient will be admitted to inpatient status, expect at least a 2 night hospital stay for evaluation and management of problems as outlined above. At the time of this admission I do not reasonably expected evaluation and management of this problem will require more than a 96 hour hospital stay. DISPOSITION-anticipate discharge to home after the hospital stay. PRIMARY CARE PROVIDER-
[2016-10-26] MEDS: Enoxaparin 120 MG/0.8 ML Syringe SUBCUT SCH (15:29)
[2016-10-26] MEDS ORDERED: Nortriptyline 25 MG Cap PO SCH (21:00)
[2016-10-26] MEDS ORDERED: Insulin Detemir 100 Units/ML 3 ML Pen SUBCUT SCH (21:00)
[2016-10-26] MEDS: Dextrose 5%-0.9% NaCl 1,000 ML IV SCH (21:34)
[2016-10-26] MEDS: Nortriptyline 25 MG Cap PO SCH (21:39)
[2016-10-27] MEDS: Enoxaparin 120 MG/0.8 ML Syringe SUBCUT SCH ×2 (02:36→14:54)
[2016-10-27] MEDS: ceFAZolin 1 GM in Premix Bag 1 BAG IV SCH ×4 (02:36→20:30)
[2016-10-27] MEDS: Albuterol 8 GM Inhaler INH SCH ×4 (04:54→21:32)
[2016-10-27] MEDS ORDERED: Lidocaine 1% 20 ML MDV ONE (05:42)
[2016-10-27] MEDS: Dextrose 5%-0.9% NaCl 1,000 ML IV SCH (06:13)
[2016-10-27] MEDS: Levothyroxine 50 MCG Tab PO SCH (07:34)
[2016-10-27] MEDS: Insulin Aspart 100 Units/ML 3 ML Pen SUBCUT SCH ×4 (07:52→17:26)
[2016-10-27] MEDS: Acetaminophen/HYDROcodone 325-5 MG Tab PO PRN ×2 (07:58→20:30)
--- NOTE | 2016-10-27 09:15 | PN ---
DATE OF SERVICE: 10/27/2016 SUBJECTIVE: Ranjan is n.p.o. He will be having incision and debridement of right pinky finger today. He had a temp max of 101.1, blood sugars have been as low as 43 with the highest of 153. He also has abdominal fasciitis which on the area of redness has decreased, less hard and tender. REVIEW OF SYSTEMS: Remainder of review of systems negative for any pertinent positives and negatives. OBJECTIVE: GENERAL: Ranjan Tinajero is a 76-year-old male. He is alert and orientated. VITAL SIGNS: TPR 96.6, 72, 18, blood pressure 171/65. HEENT: Negative. NECK: Supple. HEART: Regular rate and rhythm. LUNGS: Clear. ABDOMEN: The area that is marked is not as red throughout the entire area. It is clearing and smaller and less tender. SKIN: Right pinky finger shows cellulitis, felon, lateral area. EXTREMITIES: SCDs are on and there is no peripheral edema. ASSESSMENT: Abdominal wall cellulitis, right pinky finger infected, felon. PLAN: Orders to be written postoperatively. Regina Funes PA-C /[id number]
[2016-10-27] MEDS: Allopurinol 100 MG Tab PO SCH (10:48)
[2016-10-27] MEDS: Gabapentin 300 MG Cap PO SCH ×3 (10:48→20:24)
[2016-10-27] MEDS: Aspirin 81 MG Tab.EC PO SCH (10:48)
[2016-10-27] MEDS: Furosemide 20 MG Tab PO SCH (10:48)
[2016-10-27] MEDS: Mupirocin Oint 22 GM Tube TOP SCH ×3 (10:49→20:20)
[2016-10-27] MEDS: Fluticasone Propionate Nasal Spray 16 GM Bottle NAS SCH ×2 (10:49→20:22)
[2016-10-27] MEDS: UREA TOP SCH ×3 (12:06→20:27)
[2016-10-27] MEDS: Warfarin 2.5 MG Tab PO SCH (14:21)
--- NOTE | 2016-10-27 14:55 | PCM.PN ---
- General Info Date of Service: 10/27/16 Functional Status: Reports: pain controlled, tolerating diet, urinating - Review of Systems General: Reports: Weakness. Denies: Fever, Chills Pulmonary: Reports: no symptoms Cardiovascular: Reports: No Symptoms Gastrointestinal: Reports: Other (Abdominal wall pain secondary to cellulitis) Systems Review Comment:: This patient has been stable since yesterday, vital signs have been good and he has remained afebrile. Was seen and evaluated by Dr. Cadena and underwent IND of abscess on his right fifth finger. Blood sugars were low last night so his long- acting dose of insulin was decreased. - Patient Data Vitals - most recent: Last Vital Signs Temp 96.5 F 10/27/16 11:25 Pulse 61 10/27/16 11:25 Resp 20 10/27/16 11:25 BP 111/69 10/27/16 11:25 Pulse Ox 97 10/27/16 11:25 Weight - most recent: 262 lb 5.601 oz I&O - last 24 hours: Intake & Output 10/26/16 10/27/16 10/27/16 22:59 06:59 14:59 Intake Total 2437 1263 1250 Output Total 1150 1200 800 Balance 1287 63 450 Lab Results last 24 hrs: Laboratory Results - last 24 hr 10/27/16 10/27/16 10/27/16 Range/Units 06:00 06:00 06:00 WBC 5.8 (4.5-11.0) K/uL RBC 5.33 (4.30-5.90) M/uL Hgb 17.0 H (12.0-15.0) g/dL Hct 48.8 (40.0-54.0) % MCV 92 (80-98) fL MCH 32 H (27-31) pg MCHC 35 (32-36) % Plt Count 120 L (150-400) K/uL Neut % (Auto) 73 H (36-66) % Lymph % (Auto) 12 L (24-44) % Mora % (Auto) 13 H (2-6) % Eos % (Auto) 2 (2-4) % Baso % (Auto) 1 (0-1) % PT 15.4 H (9.5-12.0) sec INR 1.42 H (0.80-1.20) Sodium 137 L (140-148) mmol/L Potassium 4.1 (3.6-5.2) mmol/L Chloride 101 (100-108) mmol/L Carbon Dioxide 30 (21-32) mmol/L Anion Gap 10.1 (5.0-14.0) mmol/L BUN 15 (7-18) mg/dL Creatinine 1.3 (0.8-1.3) mg/dL Est Cr Clr Drug Dosing 53.89 mL/min Estimated GFR (MDRD) 54 L (>60) Glucose 252 H (74-106) mg/dL Calcium 8.4 L (8.5-10.1) mg/dL Magnesium 1.8 (1.8-2.4) mg/dL Ahmet Results last 24 hrs: Microbiology 10/27/16 07:45 Gram Stain - Final Finger, Right - Right Pinky Med Orders - Current: Current Medications Hydrocodone Bitart/Acetaminophen ([place] 325-5 Mg) 1 tab PO Q4H PRN PRN Reason: Pain (moderate 4-6) Last Admin: 10/27/16 07:58 Dose: 1 tab Albuterol (Ventolin Hfa) 0 gm INH Q6HR [facility] Last Admin: 10/27/16 10:13 Dose: 2 inh Allopurinol (Zyloprim) 100 mg PO DAILY [facility] Last Admin: 10/27/16 10:48 Dose: 100 mg Aspirin (Halfprin) 81 mg PO DAILY [facility] Last Admin: 10/27/16 10:48 Dose: 81 mg Enoxaparin Sodium (Lovenox) 120 mg SUBCUT Q12H [facility] Last Admin: 10/27/16 02:36 Dose: 120 mg Fluticasone Propionate (Flonase) 0 gm KARIN BID [facility] Last Admin: 10/27/16 10:49 Dose: 2 spray Furosemide (Lasix) 60 mg PO DAILY [facility] Last Admin: 10/27/16 10:48 Dose: 60 mg Gabapentin (Neurontin) 300 mg PO TID PRN PRN Reason: Pain Last Admin: 10/26/16 04:33 Dose: 300 mg Gabapentin (Neurontin) 300 mg PO TID [facility] Last Admin: 10/27/16 10:48 Dose: 300 mg Cefazolin Sodium/Dextrose 1 gm (/ Premix) 50 mls @ 100 mls/hr IV Q6H [facility] Last Admin: 10/27/16 14:24 Dose: 100 mls/hr Dextrose/Sodium Chloride (Dextrose 5%-Normal Saline) 1,000 mls @ 125 mls/hr IV ASDIRECTED [facility] Last Admin: 10/27/16 06:13 Dose: 125 mls/hr Insulin Aspart (Novolog) 29 unit SUBCUT WITHLUNCH [facility] Last Admin: 10/27/16 12:07 Dose: 29 units Insulin Aspart (Novolog) 33 unit SUBCUT WITHDINNER [facility] Last Admin: 10/26/16 17:37 Dose: 33 units Insulin Aspart (Novolog) 37 unit SUBCUT WITHBREAKFAST [facility] Last Admin: 10/27/16 07:52 Dose: 37 units Insulin Detemir (Levemir) 80 unit SUBCUT BEDTIME [facility] Levothyroxine Sodium (Synthroid) 50 mcg PO DAILY@0730 [facility] Last Admin: 10/27/16 07:34 Dose: 50 mcg Lovastatin (Mevacor) 80 mg PO BEDTIME [facility] Last Admin: 10/26/16 21:39 Dose: 80 mg Mupirocin (Bactroban Oint) 0 gm TOP TID [facility] Last Admin: 10/27/16 10:49 Dose: 1 applic Nitroglycerin (Nitrostat) 0.4 mg SL Q5M PRN PRN Reason: CHEST PAIN Nortriptyline HCl (Nortriptyline) 75 mg PO BEDTIME [facility] Last Admin: 10/26/16 21:39 Dose: 75 mg Urea [Urea 40% Crm] (28.35 GmPom) 0 each TOP BID [facility] Last Admin: 10/27/16 12:06 Dose: Not Given Warfarin Sodium (Coumadin) 5 mg PO SuTuFr@1300 [facility] Last Admin: 10/26/16 13:08 Dose: 5 mg Warfarin Sodium (Coumadin) 7.5 mg PO MoWeThSa@1300 [facility] Last Admin: 10/27/16 14:21 Dose: 7.5 mg Discontinued Medications Cefazolin Sodium (Ancef) Confirm Administered Dose 1 gm .ROUTE .STK-MED ONE Stop: 10/26/16 01:15 Last Admin: 10/26/16 01:38 Dose: 1 gm Gabapentin (Neurontin) 300 mg PO TID [facility] Gabapentin (Neurontin) 300 - 600 mg PO TID [facility] Gabapentin (Neurontin) 300 mg PO ONETIME ONE Stop: 10/25/16 23:31 Last Admin: 10/25/16 23:36 Dose: 300 mg Acetaminophen 1,000 mg/ Premix 100 mls @ 400 mls/hr IV NOW ONE Stop: 10/25/16 17:32 Last Admin: 10/25/16 18:05 Dose: 400 mls/hr Sodium Chloride (Normal Saline) 1,000 mls @ 250 mls/hr IV ASDIRECTED [facility] Last Admin: 10/25/16 18:04 Dose: 250 mls/hr Cefazolin Sodium 2,000 mg/ (Sodium Chloride) 50 mls @ 100 mls/hr IV ONETIME ONE Stop: 10/25/16 20:50 Last Admin: 10/25/16 20:32 Dose: Not Given Cefazolin Sodium/Dextrose 2 gm (/ Premix) 50 mls @ 100 mls/hr IV ONETIME ONE Stop: 10/25/16 21:00 Last Admin: 10/25/16 20:32 Dose: 100 mls/hr Sodium Chloride (Normal Saline) 1,000 mls @ 125 mls/hr IV ASDIRECTED [facility] Last Admin: 10/26/16 15:25 Dose: 125 mls/hr Cefazolin Sodium 1,000 mg/ (Sodium Chloride) 50 mls @ 100 mls/hr IV Q6H [facility] Last Admin: 10/26/16 01:37 Dose: Not Given Sodium Chloride (Normal Saline) Confirm Administered Dose 50 mls @ as directed .ROUTE .STK-MED ONE Stop: 10/26/16 01:15 Last Admin: 10/26/16 01:38 Dose: 50 ml Potassium Chloride 20 meq/Lidocaine HCl 2 ml/ Sodium Chloride 112 mls @ 56 mls/ hr IV Q2H [facility] Stop: 10/26/16 14:29 Last Admin: 10/26/16 13:08 Dose: 56 mls/hr Insulin Detemir (Levemir) 80 unit SUBCUT BEDTIME [facility] Insulin Detemir (Levemir) 80 unit SUBCUT ONETIME ONE Stop: 10/25/16 23:31 Last Admin: 10/25/16 23:40 Dose: Not Given Insulin Detemir (Levemir) 50 unit SUBCUT ONETIME ONE Stop: 10/26/16 21:16 Last Admin: 10/26/16 22:17 Dose: 50 units Lidocaine HCl (Xylocaine 2% Jelly) 10 ml MUCMEM ONETIME ONE Stop: 10/26/16 04:23 Last Admin: 10/26/16 06:39 Dose: Not Given Lidocaine HCl (Xylocaine 2% Jelly) 10 ml MUCMEM ONETIME ONE Stop: 10/26/16 05:28 Last Admin: 10/26/16 04:35 Dose: 10 ml Lidocaine HCl (Xylocaine 1%) Confirm Administered Dose 20 ml .ROUTE .STK-MED ONE Stop: 10/27/16 05:43 Last Admin: 10/27/16 08:01 Dose: 6 ml Lovastatin (Mevacor) 80 mg PO BEDTIME [facility] Lovastatin (Mevacor) 80 mg PO ONETIME ONE Stop: 10/25/16 23:31 Last Admin: 10/25/16 23:47 Dose: 80 mg Nortriptyline HCl (Nortriptyline) 75 mg PO BEDTIME [facility] Nortriptyline HCl (Nortriptyline) 75 mg PO ONETIME ONE Stop: 10/25/16 23:31 Last Admin: 10/26/16 03:16 Dose: Not Given Potassium Chloride (Klor-Con M20) 40 meq PO ONETIME ONE Stop: 10/25/16 21:16 Last Admin: 10/25/16 22:34 Dose: 40 meq Potassium Chloride (Klor-Con M20) 40 meq PO ONETIME ONE Stop: 10/26/16 10:31 Last Admin: 10/26/16 10:19 Dose: 40 meq Sodium Chloride (Saline Flush) 10 ml FLUSH ASDIRECTED PRN PRN Reason: Keep Vein Open Last Admin: 10/25/16 18:08 Dose: 10 ml - Exam Quality Assessment: DVT prophylaxis General: alert, oriented, cooperative, no acute distress Lungs: Clear to auscultation, Normal respiratory effort Cardiovascular: Regular Rate, Regular Rhythm Abdomen: bowel sounds present, soft, no tenderness, no distension, other (Area of cellulitis improved on the abdominal wall) Extremities: no edema Skin: warm, dry, intact, other (Cellulitis as above) - Problem List Review Problem List Initiated/Reviewed/Updated: Yes - My Orders Last 24 Hours: My Active Orders 10/26/16 14:00 Enoxaparin [Lovenox] 120 mg SUBCUT Q12H 10/26/16 14:15 Consult to Physician [CONS] Routine 10/26/16 14:16 Notify Provider Consults [RC] ASDIRECTED 10/27/16 07:38 Consult to Physical Therapy [PT Evaluation and Treatment] [CONS] Routine 10/27/16 14:50 Convert IV to Saline Lock [OM.PC] Routine 10/28/16 05:00 BASIC METABOLIC PANEL,BMP [CHEM] Timed CBC WITH AUTO DIFF [HEME] Timed INR,PT,PROTHROMBIN TIME [COAG] Timed - Plan Plan:: ASSESSMENT AND PLAN ABDOMINAL WALL CELLULITIS AND SEPSIS-improved since admission on current antibiotic therapy with cefazolin. -Continue cefazolin pending culture results -Continue IV fluids for hydration -Blood culture pending TYPE 2 DIABETES MELLITUS -Continue insulin therapy -4 times a day glucometers HISTORY OF DEEP VEIN THROMBOSIS AND PULMONARY EMBOLI-current INR subtherapeutic -Lovenox 120 mg subcutaneous every 12 hours until INR is within therapeutic range -Daily warfarin -INR in a.m. CHRONIC KIDNEY DISEASE STAGE III -Closely monitor urine output and renal function during hospital stay HYPOKALEMIA -Repeat potassium level in a.m. PALLIATIVE CARE-patient is DNR/DNI, he does not want further aggressive evaluation or interventions other than current management MAINTENANCE ISSUES -DVT prophylaxis; Lovenox 120 mg subcutaneous every 12 hours until INR is therapeutic -GI prophylaxis; not indicated -Mcdonald catheter; not indicated -Nutrition; consistent carb diet -Nicotine dependence; not required CODE STATUS-DNR/DNI ADMISSION STATUS-patient will be admitted to inpatient status, expect at least a 2 night hospital stay for evaluation and management of problems as outlined above. At the time of this admission I do not reasonably expected evaluation and management of this problem will require more than a 96 hour hospital stay. DISPOSITION-anticipate discharge to home after the hospital stay. PRIMARY CARE PROVIDER-
[2016-10-27] MEDS: Nortriptyline 25 MG Cap PO SCH (21:23)
[2016-10-27] MEDS: Insulin Detemir 100 Units/ML 3 ML Pen SUBCUT SCH (21:23)
[2016-10-28] MEDS: ceFAZolin 1 GM in Premix Bag 1 BAG IV SCH ×4 (02:01→19:44)
[2016-10-28] MEDS: Enoxaparin 120 MG/0.8 ML Syringe SUBCUT SCH ×2 (02:02→14:31)
[2016-10-28] MEDS: Albuterol 8 GM Inhaler INH SCH ×4 (05:30→21:08)
[2016-10-28] MEDS: Levothyroxine 50 MCG Tab PO SCH (07:38)
[2016-10-28] MEDS: Acetaminophen/HYDROcodone 325-5 MG Tab PO PRN ×2 (07:58→14:29)
[2016-10-28] MEDS: Insulin Aspart 100 Units/ML 3 ML Pen SUBCUT SCH ×3 (08:15→17:22)
[2016-10-28] MEDS: Mupirocin Oint 22 GM Tube TOP SCH ×3 (08:18→21:06)
[2016-10-28] MEDS: Fluticasone Propionate Nasal Spray 16 GM Bottle NAS SCH ×2 (08:18→21:06)
[2016-10-28] MEDS: UREA TOP SCH ×2 (08:19→21:04)
[2016-10-28] MEDS: Gabapentin 300 MG Cap PO SCH ×3 (08:19→21:07)
[2016-10-28] MEDS: Aspirin 81 MG Tab.EC PO SCH (08:19)
[2016-10-28] MEDS: Furosemide 20 MG Tab PO SCH (08:19)
[2016-10-28] MEDS: Allopurinol 100 MG Tab PO SCH (08:20)
--- NOTE | 2016-10-28 09:53 | PN ---
DATE OF SERVICE: 10/27/2016 The patient underwent drainage of what turned out to be combined felon and paronychia. The problem with the felon was there was some purulent material underneath the nail adjacent to it as well. So the nail was removed for treatment of the paronychial component. Cultures on that are pending. Dressing change will be undertaken tomorrow at the bedside. Overnight the patient's degree of redness in terms of the outline has not significantly changed, but it was overall less intense. There is no obvious abscess or any crepitus evident. Plan will be to proceed with a CT scan of the abdomen tomorrow without contrast to evaluate further development of the abscess or any signs of necrotizing infection. Otherwise, continue present antibiotic management per Dr. Honeycutt. Rico Cadena MD /[id number]
[2016-10-28] MEDS: Warfarin 2.5 MG Tab PO SCH (13:05)
--- NOTE | 2016-10-28 13:08 | PN ---
DATE OF SERVICE: 10/28/2016 SUBJECTIVE: Ranjan is postop day #1. He had incision and drainage of his finger and abdominal wall cellulitis. He reports his pain is controlled. He has been afebrile. REVIEW OF SYSTEMS: Remainder of review of systems negative for any pertinent positives and negatives. OBJECTIVE: GENERAL: Ranjan Tinajero is a 76-year-old male. VITAL SIGNS: TPR is 95.3, 66, 14, blood pressure 130/83. HEENT: Negative. NECK: Supple. HEART: Regular rate and rhythm. SKIN: Right pinky finger incision was looked at and dressing changed per Dr. Rico Cadena. ABDOMEN: Abdomen is less acute, soft, and the pink/red area is lightening and clearing throughout the entire area. EXTREMITIES: No peripheral edema. ASSESSMENT: Abdominal wall cellulitis and incision and drainage of right fifth finger. PLAN: 1. Continue same orders. 2. We will evaluate p.r.n. or in a.m. Regina Funes PA-C /[id number]
--- NOTE | 2016-10-28 17:28 | PCM.PN ---
- General Info Date of Service: 10/28/16 Functional Status: Reports: pain controlled, tolerating diet, ambulating - Review of Systems General: Denies: Fever, Weakness, Chills Pulmonary: Reports: no symptoms Cardiovascular: Reports: No Symptoms Gastrointestinal: Reports: No symptoms Systems Review Comment:: Mr. Tinajero is done well over the past 24 hours, vital signs have been stable and he has remained afebrile. Overall strength seems to be slowly improving and there is been good improvement in the cellulitis over the last 24 hours. - Patient Data Vitals - most recent: Last Vital Signs Temp 95.7 F 10/28/16 14:47 Pulse 68 10/28/16 14:47 Resp 20 10/28/16 14:47 BP 128/70 10/28/16 14:47 Pulse Ox 96 10/28/16 14:47 Weight - most recent: 262 lb 5.601 oz I&O - last 24 hours: Intake & Output 10/28/16 10/28/16 10/28/16 06:59 14:59 22:59 Intake Total 50 1080 500 Output Total 1000 675 Balance -950 1080 -175 Lab Results last 24 hrs: Laboratory Results - last 24 hr 10/28/16 10/28/16 10/28/16 Range/Units 05:10 05:10 05:10 WBC 6.3 (4.5-11.0) K/uL RBC 5.31 (4.30-5.90) M/uL Hgb 16.8 H (12.0-15.0) g/dL Hct 48.6 (40.0-54.0) % MCV 92 (80-98) fL MCH 32 H (27-31) pg MCHC 35 (32-36) % Plt Count 133 L (150-400) K/uL Neut % (Auto) 67 H (36-66) % Lymph % (Auto) 16 L (24-44) % Price % (Auto) 14 H (2-6) % Eos % (Auto) 3 (2-4) % Baso % (Auto) 1 (0-1) % PT 16.4 H (9.5-12.0) sec INR 1.51 H (0.80-1.20) Sodium 139 L (140-148) mmol/L Potassium 3.9 (3.6-5.2) mmol/L Chloride 100 (100-108) mmol/L Carbon Dioxide 34 H (21-32) mmol/L Anion Gap 8.9 (5.0-14.0) mmol/L BUN 15 (7-18) mg/dL Creatinine 1.4 H (0.8-1.3) mg/dL Est Cr Clr Drug Dosing 50.04 mL/min Estimated GFR (MDRD) 49 L (>60) Glucose 117 H (74-106) mg/dL Calcium 8.8 (8.5-10.1) mg/dL Ahmet Results last 24 hrs: Microbiology 10/27/16 07:45 Gram Stain - Final Finger, Right - Right Pinky Wound Culture - Preliminary Anaerobic Culture - Preliminary NO GROWTH AFTER 1 DAY Med Orders - Current: Current Medications Hydrocodone Bitart/Acetaminophen ([place] 325-5 Mg) 1 tab PO Q4H PRN PRN Reason: Pain (moderate 4-6) Last Admin: 10/28/16 14:29 Dose: 1 tab Albuterol (Ventolin Hfa) 0 gm INH Q6HR [facility] Last Admin: 10/28/16 16:12 Dose: 2 inh Allopurinol (Zyloprim) 100 mg PO DAILY [facility] Last Admin: 10/28/16 08:20 Dose: 100 mg Aspirin (Halfprin) 81 mg PO DAILY [facility] Last Admin: 10/28/16 08:19 Dose: 81 mg Enoxaparin Sodium (Lovenox) 120 mg SUBCUT Q12H [facility] Last Admin: 10/28/16 14:31 Dose: 120 mg Fluticasone Propionate (Flonase) 0 gm KARIN BID [facility] Last Admin: 10/28/16 08:18 Dose: 2 spray Furosemide (Lasix) 60 mg PO DAILY [facility] Last Admin: 10/28/16 08:19 Dose: 60 mg Gabapentin (Neurontin) 300 mg PO TID PRN PRN Reason: Pain Last Admin: 10/26/16 04:33 Dose: 300 mg Gabapentin (Neurontin) 300 mg PO TID [facility] Last Admin: 10/28/16 14:31 Dose: 300 mg Cefazolin Sodium/Dextrose 1 gm (/ Premix) 50 mls @ 100 mls/hr IV Q6H [facility] Last Admin: 10/28/16 14:30 Dose: 100 mls/hr Insulin Aspart (Novolog) 29 unit SUBCUT WITHLUNCH [facility] Last Admin: 10/28/16 13:02 Dose: 29 units Insulin Aspart (Novolog) 37 unit SUBCUT WITHBREAKFAST [facility] Last Admin: 10/28/16 08:15 Dose: 37 units Insulin Aspart (Novolog) 28 unit SUBCUT WITHDINNER [facility] Last Admin: 10/28/16 17:22 Dose: 28 units Insulin Detemir (Levemir) 80 unit SUBCUT BEDTIME [facility] Last Admin: 10/27/16 21:23 Dose: 80 units Levothyroxine Sodium (Synthroid) 50 mcg PO DAILY@0730 [facility] Last Admin: 10/28/16 07:38 Dose: 50 mcg Lovastatin (Mevacor) 80 mg PO BEDTIME [facility] Last Admin: 10/27/16 20:23 Dose: 80 mg Mupirocin (Bactroban Oint) 0 gm TOP TID [facility] Last Admin: 10/28/16 14:31 Dose: 1 applic Nitroglycerin (Nitrostat) 0.4 mg SL Q5M PRN PRN Reason: CHEST PAIN Nortriptyline HCl (Nortriptyline) 75 mg PO BEDTIME [facility] Last Admin: 10/27/16 21:23 Dose: 75 mg Urea [Urea 40% Crm] (28.35 GmPom) 0 each TOP BID [facility] Last Admin: 10/28/16 08:19 Dose: Not Given Warfarin Sodium (Coumadin) 5 mg PO SuTuFr@1300 [facility] Last Admin: 10/26/16 13:08 Dose: 5 mg Warfarin Sodium (Coumadin) 7.5 mg PO MoWeThSa@1300 [facility] Last Admin: 10/28/16 13:05 Dose: 7.5 mg Discontinued Medications Cefazolin Sodium (Ancef) Confirm Administered Dose 1 gm .ROUTE .STK-MED ONE Stop: 10/26/16 01:15 Last Admin: 10/26/16 01:38 Dose: 1 gm Gabapentin (Neurontin) 300 mg PO TID [facility] Gabapentin (Neurontin) 300 - 600 mg PO TID [facility] Gabapentin (Neurontin) 300 mg PO ONETIME ONE Stop: 10/25/16 23:31 Last Admin: 10/25/16 23:36 Dose: 300 mg Acetaminophen 1,000 mg/ Premix 100 mls @ 400 mls/hr IV NOW ONE Stop: 10/25/16 17:32 Last Admin: 10/25/16 18:05 Dose: 400 mls/hr Sodium Chloride (Normal Saline) 1,000 mls @ 250 mls/hr IV ASDIRECTED [facility] Last Admin: 10/25/16 18:04 Dose: 250 mls/hr Cefazolin Sodium 2,000 mg/ (Sodium Chloride) 50 mls @ 100 mls/hr IV ONETIME ONE Stop: 10/25/16 20:50 Last Admin: 10/25/16 20:32 Dose: Not Given Cefazolin Sodium/Dextrose 2 gm (/ Premix) 50 mls @ 100 mls/hr IV ONETIME ONE Stop: 10/25/16 21:00 Last Admin: 10/25/16 20:32 Dose: 100 mls/hr Sodium Chloride (Normal Saline) 1,000 mls @ 125 mls/hr IV ASDIRECTED [facility] Last Admin: 10/26/16 15:25 Dose: 125 mls/hr Cefazolin Sodium 1,000 mg/ (Sodium Chloride) 50 mls @ 100 mls/hr IV Q6H [facility] Last Admin: 10/26/16 01:37 Dose: Not Given Sodium Chloride (Normal Saline) Confirm Administered Dose 50 mls @ as directed .ROUTE .STK-MED ONE Stop: 10/26/16 01:15 Last Admin: 10/26/16 01:38 Dose: 50 ml Potassium Chloride 20 meq/Lidocaine HCl 2 ml/ Sodium Chloride 112 mls @ 56 mls/ hr IV Q2H [facility] Stop: 10/26/16 14:29 Last Admin: 10/26/16 13:08 Dose: 56 mls/hr Dextrose/Sodium Chloride (Dextrose 5%-Normal Saline) 1,000 mls @ 125 mls/hr IV ASDIRECTED [facility] Last Admin: 10/27/16 06:13 Dose: 125 mls/hr Insulin Aspart (Novolog) 33 unit SUBCUT WITHDINNER [facility] Last Admin: 10/27/16 17:26 Dose: Not Given Insulin Detemir (Levemir) 80 unit SUBCUT BEDTIME [facility] Insulin Detemir (Levemir) 80 unit SUBCUT ONETIME ONE Stop: 10/25/16 23:31 Last Admin: 10/25/16 23:40 Dose: Not Given Insulin Detemir (Levemir) 50 unit SUBCUT ONETIME ONE Stop: 10/26/16 21:16 Last Admin: 10/26/16 22:17 Dose: 50 units Lidocaine HCl (Xylocaine 2% Jelly) 10 ml MUCMEM ONETIME ONE Stop: 10/26/16 04:23 Last Admin: 10/26/16 06:39 Dose: Not Given Lidocaine HCl (Xylocaine 2% Jelly) 10 ml MUCMEM ONETIME ONE Stop: 10/26/16 05:28 Last Admin: 10/26/16 04:35 Dose: 10 ml Lidocaine HCl (Xylocaine 1%) Confirm Administered Dose 20 ml .ROUTE .STK-MED ONE Stop: 10/27/16 05:43 Last Admin: 10/27/16 08:01 Dose: 6 ml Lovastatin (Mevacor) 80 mg PO BEDTIME [facility] Lovastatin (Mevacor) 80 mg PO ONETIME ONE Stop: 10/25/16 23:31 Last Admin: 10/25/16 23:47 Dose: 80 mg Nortriptyline HCl (Nortriptyline) 75 mg PO BEDTIME [facility] Nortriptyline HCl (Nortriptyline) 75 mg PO ONETIME ONE Stop: 10/25/16 23:31 Last Admin: 10/26/16 03:16 Dose: Not Given Potassium Chloride (Klor-Con M20) 40 meq PO ONETIME ONE Stop: 10/25/16 21:16 Last Admin: 10/25/16 22:34 Dose: 40 meq Potassium Chloride (Klor-Con M20) 40 meq PO ONETIME ONE Stop: 10/26/16 10:31 Last Admin: 10/26/16 10:19 Dose: 40 meq Sodium Chloride (Saline Flush) 10 ml FLUSH ASDIRECTED PRN PRN Reason: Keep Vein Open Last Admin: 10/25/16 18:08 Dose: 10 ml - Exam Quality Assessment: DVT prophylaxis General: alert, oriented, cooperative, no acute distress Lungs: Clear to auscultation, Normal respiratory effort Cardiovascular: Regular Rate, Regular Rhythm, No Murmurs Abdomen: bowel sounds present, soft, no tenderness, no distension Extremities: no edema Skin: other (Mild persistent and fading erythema abdominal wall, less tenderness.) - Problem List Review Problem List Initiated/Reviewed/Updated: Yes - Plan Plan:: ASSESSMENT AND PLAN ABDOMINAL WALL CELLULITIS AND SEPSIS-improved since admission on current antibiotic therapy with cefazolin. Cultures have been negative so far. -Continue cefazolin pending culture results -Saline lock IV TYPE 2 DIABETES MELLITUS -Continue insulin therapy -4 times a day glucometers HISTORY OF DEEP VEIN THROMBOSIS AND PULMONARY EMBOLI-current INR subtherapeutic -Lovenox 120 mg subcutaneous every 12 hours until INR is within therapeutic range -Daily warfarin -INR in a.m. CHRONIC KIDNEY DISEASE STAGE III -Closely monitor urine output and renal function during hospital stay HYPOKALEMIA -Repeat potassium level in a.m. PALLIATIVE CARE-patient is DNR/DNI, he does not want further aggressive evaluation or interventions other than current management MAINTENANCE ISSUES -DVT prophylaxis; Lovenox 120 mg subcutaneous every 12 hours until INR is therapeutic -GI prophylaxis; not indicated -Mcdonald catheter; not indicated -Nutrition; consistent carb diet -Nicotine dependence; not required CODE STATUS-DNR/DNI ADMISSION STATUS-patient will be admitted to inpatient status, expect at least a 2 night hospital stay for evaluation and management of problems as outlined above. At the time of this admission I do not reasonably expected evaluation and management of this problem will require more than a 96 hour hospital stay. DISPOSITION-anticipate discharge to home tomorrow PRIMARY CARE PROVIDER-
[2016-10-28] MEDS: Nortriptyline 25 MG Cap PO SCH (21:07)
[2016-10-28] MEDS: Insulin Detemir 100 Units/ML 3 ML Pen SUBCUT SCH (21:10)
[2016-10-29] MEDS: ceFAZolin 1 GM in Premix Bag 1 BAG IV SCH ×2 (01:37→07:27)
[2016-10-29] MEDS: Enoxaparin 120 MG/0.8 ML Syringe SUBCUT SCH (02:42)
[2016-10-29] MEDS: Albuterol 8 GM Inhaler INH SCH ×2 (04:20→09:13)
[2016-10-29] MEDS: Levothyroxine 50 MCG Tab PO SCH (07:18)
[2016-10-29] MEDS: Insulin Aspart 100 Units/ML 3 ML Pen SUBCUT SCH ×2 (09:03→12:03)
[2016-10-29] MEDS: Fluticasone Propionate Nasal Spray 16 GM Bottle NAS SCH (09:11)
[2016-10-29] MEDS: Furosemide 20 MG Tab PO SCH (09:12)
[2016-10-29] MEDS: Aspirin 81 MG Tab.EC PO SCH (09:12)
[2016-10-29] MEDS: Gabapentin 300 MG Cap PO SCH (09:12)
[2016-10-29] MEDS: UREA TOP SCH (09:12)
[2016-10-29] MEDS: Mupirocin Oint 22 GM Tube TOP SCH (09:13)
[2016-10-29] MEDS: Allopurinol 100 MG Tab PO SCH (09:13)
--- NOTE | 2016-10-29 09:30 | PN ---
DATE OF SERVICE: 10/29/2016 SUBJECTIVE: Ranjan reports his pain is controlled. Vital signs have been stable. He has been afebrile. Dressing on his right little finger has been change twice a day. It show gram-positive cocci on the culture. REVIEW OF SYSTEMS: Remainder of review of systems negative for any pertinent positives and negatives. OBJECTIVE: GENERAL: Ranjan Tinajero is a 76-year-old male. He is alert and orientated. VITAL SIGNS: TPR 96.8, 65, 18, blood pressure 156/89. HEART: Regular rate and rhythm. LUNGS: Clear. SKIN: Right little finger is open, it is bleeding. It does bleed easily. Dr. Cadena was available to look at the incision. Continue to wrap and dress incision with dry gauze b.i.d. and p.r.n. ABDOMEN: The pink area cellulitis continues to clear and resolve. EXTREMITIES: No peripheral edema. ASSESSMENT: 1. Abdominal wall cellulitis clearing. 2. Incision and drainage of right little finger. PLAN: Continue same orders. He may shower and we will evaluate p.r.n. or in a.m. Regina Funes PA-C /[id number]
[2016-10-29 10:59] VITALS: BP 112/68
--- NOTE | 2016-10-29 12:08 | PCM.DCSUM1 ---
Discharge Summary - Hospital Course Brief History: Mr. Tinajero is a 76-year-old gentleman who was admitted through the emergency room with symptoms of weakness and fever secondary to abdominal wall cellulitis. - Discharge Data Discharge Date: 10/29/16 Discharge Disposition: Home, Self-Care 01 Condition: Fair - Discharge Diagnosis/Problem(s) (1) Type 2 diabetes mellitus SNOMED Code(s): 50784921 ICD Code: E11.9 - TYPE 2 DIABETES MELLITUS WITHOUT COMPLICATIONS Status: Acute Current Visit: Yes (2) Cellulitis SNOMED Code(s): 572417043 ICD Code: L03.90 - CELLULITIS, UNSPECIFIED Status: Acute Current Visit: Yes (3) Chronic renal insufficiency SNOMED Code(s): 983494885 ICD Code: N18.9 - CHRONIC KIDNEY DISEASE, UNSPECIFIED Status: Chronic Current Visit: No - Patient Summary/Data Consults: Consultations 10/26/16 14:15 Consult to Physician [CONS] Routine Consulting Provider: Rico Cadena Courtesy Call Completed to Consulting Physician: Yes Reason for Consult: Infection right fifth finger, IND Special Instructions: Please see in a.m. 10/27/16 07:38 Consult to Physical Therapy [PT Evaluation and Treatment] [CONS] Routine Please Evaluate and Treat. PT Reason for Consult: weakenss Discharge Disposition: Home This query below is only for informational purposes and is not editable. Admission Diagnosis/Problem: Cellulitis Hospital Course: Mr. Tinajero is a 76-year-old gentleman who developed erythema and pain across his abdominal wall associated with fever and progressive weakness. He was seen and evaluated in the emergency department and felt to have cellulitis of the abdominal wall. There was evidence of early sepsis with significant temperature elevation and mild tachycardia. He did receive IV fluids and was started on IV antibiotic therapy with cefazolin in the emergency department. CT scan of the abdomen and pelvis showed no other potential cause of infection or fever. With IV antibiotics he improved significantly over the next few days and by the time of discharge the cellulitis and almost totally resolved. Vital signs were stable and he been afebrile for at least 48 hours. Source of the cellulitis was felt to be his insula and injections in the abdominal wall. He has a known history of diabetes and was followed closely for close control during his hospital stay with frequent glucometers and adjustment of insulin as needed. He has a previous history of deep vein thrombosis as well as pulmonary embolism and is on long-term oral anticoagulation with warfarin. INR was found to be subtherapeutic and he was placed on therapeutic Lovenox during the hospital stay. INR remains subtherapeutic, he will continue on warfarin and have a follow -up appointment in 3 days in the Coumadin clinic. He will complete worse of antibiotics with an additional 5 days of oral cephalexin. Activity will be as tolerated and he will resume a diabetic diet.follow-up appointment will be scheduled with Dr. Warner within one week. - Patient Instructions Diet: Diabetic Diet Activity: As Tolerated Other/Special Instructions: Please schedule follow-up appointment in the Coumadin clinic for November 01. Please schedule follow-up appointment with primary care provider Dr. Warner within one week. Please schedule follow-up appointment with Dr. Cadena for November 03. - Discharge Plan Prescriptions/Med Rec: Cephalexin [IJD: Cephalexin] 500 mg PO .EVERY 8 HOURS #15 cap Home Medications: Home Meds Albuterol Sulfate [Proair Hfa] 2 puff IH Q6HR 05/21/14 [History] Allopurinol [Zyloprim] 100 mg PO DAILY 05/21/14 [History] Betamethasone Dipropionate [Diprolene 0.05% Oint] 1 applic TOP BID 05/21/14 [ History] Furosemide 60 mg PO DAILY 05/21/14 [History] Insulin Aspart [NovoLOG] 1 unit SQ ASDIRECTED PRN 05/21/14 [History] Insulin Detemir [Levemir Flextouch] 75 unit SQ BEDTIME 05/21/14 [History] Levothyroxine [Synthroid] 50 mcg PO QAM 05/21/14 [History] Lovastatin 80 mg PO BEDTIME 05/21/14 [History] Nitroglycerin [Nitrostat] 0.4 mg SL ASDIRECTED 05/21/14 [History] Warfarin Sodium 7.5 mg PO ASDIRECTED 05/21/14 [History] Aspirin [Low Dose Aspirin EC] 81 mg PO DAILY 05/15/15 [History] Fluticasone Propionate [Flonase] 16 gm IN BID 05/15/15 [History] Mupirocin [Bactroban] 22 gm TP TID 05/15/15 [History] Urea [Urea 40% Crm] 28.35 gm TOP BID 05/15/15 [History] Cholecalciferol (Vitamin D3) [Vitamin D3] 2,000 units PO DAILY 12/05/15 [History ] Nortriptyline HCl 75 mg PO BEDTIME 12/05/15 [History] Gabapentin 1 tab PO TID 10/25/16 [History] Cephalexin [IJD: Cephalexin] 500 mg PO .EVERY 8 HOURS #15 cap 10/29/16 [Rx] Patient Handouts: Cellulitis, Adult, Cephalexin tablets or capsules, How to Change Your Dressing, [id number] Referrals: Ayo Morataya MD [Primary Care Provider] - - Patient Data Vitals - Most Recent: Last Vital Signs Temp 97 F 10/29/16 10:55 Pulse 73 10/29/16 10:55 Resp 17 10/29/16 10:55 BP 112/68 10/29/16 10:55 Pulse Ox 95 10/29/16 10:55 Weight - Most Recent: 262 lb 5.601 oz I&O - Last 24 hours: Intake & Output 10/28/16 10/29/16 10/29/16 22:59 06:59 14:59 Intake Total 980 725 677 Output Total 875 300 Balance 105 425 677 NENITA Results - Last 24 hrs: Microbiology 10/27/16 07:45 Gram Stain - Final Finger, Right - Right Pinky Wound Culture - Preliminary Anaerobic Culture - Preliminary NO GROWTH AFTER 2 DAYS Med Orders - Current: Current Medications Hydrocodone Bitart/Acetaminophen ([place] 325-5 Mg) 1 tab PO Q4H PRN PRN Reason: Pain (moderate 4-6) Last Admin: 10/28/16 14:29 Dose: 1 tab Albuterol (Ventolin Hfa) 0 gm INH Q6HR [facility] Last Admin: 10/29/16 09:13 Dose: 2 inh Allopurinol (Zyloprim) 100 mg PO DAILY [facility] Last Admin: 10/29/16 09:13 Dose: 100 mg Aspirin (Halfprin) 81 mg PO DAILY [facility] Last Admin: 10/29/16 09:12 Dose: 81 mg Enoxaparin Sodium (Lovenox) 120 mg SUBCUT Q12H [facility] Last Admin: 10/29/16 02:42 Dose: 120 mg Fluticasone Propionate (Flonase) 0 gm KARIN BID [facility] Last Admin: 10/29/16 09:11 Dose: 2 spray Furosemide (Lasix) 60 mg PO DAILY [facility] Last Admin: 10/29/16 09:12 Dose: 60 mg Gabapentin (Neurontin) 300 mg PO TID PRN PRN Reason: Pain Last Admin: 10/26/16 04:33 Dose: 300 mg Gabapentin (Neurontin) 300 mg PO TID [facility] Last Admin: 10/29/16 09:12 Dose: 300 mg Cefazolin Sodium/Dextrose 1 gm (/ Premix) 50 mls @ 100 mls/hr IV Q6H [facility] Last Admin: 10/29/16 07:27 Dose: 100 mls/hr Insulin Aspart (Novolog) 29 unit SUBCUT WITHLUNCH [facility] Last Admin: 10/29/16 12:03 Dose: 29 units Insulin Aspart (Novolog) 37 unit SUBCUT WITHBREAKFAST [facility] Last Admin: 10/29/16 09:03 Dose: 37 units Insulin Aspart (Novolog) 28 unit SUBCUT WITHDINNER [facility] Last Admin: 10/28/16 17:22 Dose: 28 units Insulin Detemir (Levemir) 80 unit SUBCUT BEDTIME [facility] Last Admin: 10/28/16 21:10 Dose: 80 units Levothyroxine Sodium (Synthroid) 50 mcg PO DAILY@0730 [facility] Last Admin: 10/29/16 07:18 Dose: 50 mcg Lovastatin (Mevacor) 80 mg PO BEDTIME [facility] Last Admin: 10/28/16 21:06 Dose: 80 mg Mupirocin (Bactroban Oint) 0 gm TOP TID [facility] Last Admin: 10/29/16 09:13 Dose: 1 applic Nitroglycerin (Nitrostat) 0.4 mg SL Q5M PRN PRN Reason: CHEST PAIN Nortriptyline HCl (Nortriptyline) 75 mg PO BEDTIME [facility] Last Admin: 10/28/16 21:07 Dose: 75 mg Urea [Urea 40% Crm] (28.35 GmPom) 0 each TOP BID [facility] Last Admin: 10/29/16 09:12 Dose: Not Given Warfarin Sodium (Coumadin) 5 mg PO SuTuFr@1300 [facility] Last Admin: 10/26/16 13:08 Dose: 5 mg Warfarin Sodium (Coumadin) 7.5 mg PO MoWeThSa@1300 [facility] Last Admin: 10/28/16 13:05 Dose: 7.5 mg Discontinued Medications Cefazolin Sodium (Ancef) Confirm Administered Dose 1 gm .ROUTE .[facility] ONE Stop: 10/26/16 01:15 Last Admin: 10/26/16 01:38 Dose: 1 gm Gabapentin (Neurontin) 300 mg PO TID [facility] Gabapentin (Neurontin) 300 - 600 mg PO TID [facility] Gabapentin (Neurontin) 300 mg PO ONETIME ONE Stop: 10/25/16 23:31 Last Admin: 10/25/16 23:36 Dose: 300 mg Acetaminophen 1,000 mg/ Premix 100 mls @ 400 mls/hr IV NOW ONE Stop: 10/25/16 17:32 Last Admin: 10/25/16 18:05 Dose: 400 mls/hr Sodium Chloride (Normal Saline) 1,000 mls @ 250 mls/hr IV ASDIRECTED [facility] Last Admin: 10/25/16 18:04 Dose: 250 mls/hr Cefazolin Sodium 2,000 mg/ (Sodium Chloride) 50 mls @ 100 mls/hr IV ONETIME ONE Stop: 10/25/16 20:50 Last Admin: 10/25/16 20:32 Dose: Not Given Cefazolin Sodium/Dextrose 2 gm (/ Premix) 50 mls @ 100 mls/hr IV ONETIME ONE Stop: 10/25/16 21:00 Last Admin: 10/25/16 20:32 Dose: 100 mls/hr Sodium Chloride (Normal Saline) 1,000 mls @ 125 mls/hr IV ASDIRECTED [facility] Last Admin: 10/26/16 15:25 Dose: 125 mls/hr Cefazolin Sodium 1,000 mg/ (Sodium Chloride) 50 mls @ 100 mls/hr IV Q6H [facility] Last Admin: 10/26/16 01:37 Dose: Not Given Sodium Chloride (Normal Saline) Confirm Administered Dose 50 mls @ as directed .ROUTE .[facility] ONE Stop: 10/26/16 01:15 Last Admin: 10/26/16 01:38 Dose: 50 ml Potassium Chloride 20 meq/Lidocaine HCl 2 ml/ Sodium Chloride 112 mls @ 56 mls/ hr IV Q2H [facility] Stop: 10/26/16 14:29 Last Admin: 10/26/16 13:08 Dose: 56 mls/hr Dextrose/Sodium Chloride (Dextrose 5%-Normal Saline) 1,000 mls @ 125 mls/hr IV ASDIRECTED [facility] Last Admin: 10/27/16 06:13 Dose: 125 mls/hr Insulin Aspart (Novolog) 33 unit SUBCUT WITHDINNER [facility] Last Admin: 10/27/16 17:26 Dose: Not Given Insulin Detemir (Levemir) 80 unit SUBCUT BEDTIME [facility] Insulin Detemir (Levemir) 80 unit SUBCUT ONETIME ONE Stop: 10/25/16 23:31 Last Admin: 10/25/16 23:40 Dose: Not Given Insulin Detemir (Levemir) 50 unit SUBCUT ONETIME ONE Stop: 10/26/16 21:16 Last Admin: 10/26/16 22:17 Dose: 50 units Lidocaine HCl (Xylocaine 2% Jelly) 10 ml MUCMEM ONETIME ONE Stop: 10/26/16 04:23 Last Admin: 10/26/16 06:39 Dose: Not Given Lidocaine HCl (Xylocaine 2% Jelly) 10 ml MUCMEM ONETIME ONE Stop: 10/26/16 05:28 Last Admin: 10/26/16 04:35 Dose: 10 ml Lidocaine HCl (Xylocaine 1%) Confirm Administered Dose 20 ml .ROUTE .STK-[facility] ONE Stop: 10/27/16 05:43 Last Admin: 10/27/16 08:01 Dose: 6 ml Lovastatin (Mevacor) 80 mg PO BEDTIME [facility] Lovastatin (Mevacor) 80 mg PO ONETIME ONE Stop: 10/25/16 23:31 Last Admin: 10/25/16 23:47 Dose: 80 mg Nortriptyline HCl (Nortriptyline) 75 mg PO BEDTIME [facility] Nortriptyline HCl (Nortriptyline) 75 mg PO ONETIME ONE Stop: 10/25/16 23:31 Last Admin: 10/26/16 03:16 Dose: Not Given Potassium Chloride (Klor-Con M20) 40 meq PO ONETIME ONE Stop: 10/25/16 21:16 Last Admin: 10/25/16 22:34 Dose: 40 meq Potassium Chloride (Klor-Con M20) 40 meq PO ONETIME ONE Stop: 10/26/16 10:31 Last Admin: 10/26/16 10:19 Dose: 40 meq Sodium Chloride (Saline Flush) 10 ml FLUSH ASDIRECTED PRN PRN Reason: Keep Vein Open Last Admin: 10/25/16 18:08 Dose: 10 ml *Q Meaningful Use (DIS) - VTE *Q VTE Criteria *Q: - Stroke *Q Stroke Criteria *Q: - AMI *Q AMI Criteria *Q:
--- NOTE | 2016-11-01 13:08 | OR ---
DATE OF PROCEDURE: 10/27/2016 PREOPERATIVE DIAGNOSIS: Felon involving right little finger. POSTOPERATIVE DIAGNOSES: 1. Combined felon and paronychia, right little finger. 2. Focal necrotic tissue at the level of felon involving right little finger. OPERATIVE PROCEDURES: 1. Drainage of felon of right little finger (12684). 2. Removal of nail from right little finger to facilitate drainage of paronychia (08317). 3. Debridement of focal necrotic tissue at the level of felon (07841). ANESTHESIA: Digital block. INDICATION FOR PROCEDURE: This 76-year-old diabetic presenting with an obvious felon involving the right little finger. There was some purulence extending upward. Additionally, the nail had some degree of a paronychia as well. Plan is to proceed with drainage of the felon and possible removal of the nail to facilitate drainage of a coexisting paronychia. Potential risks including bleeding, infection, injury to digital nerves, possible development of osteomyelitis as part of the process were all gone over, and the patient wishes to proceed. DETAILS OF PROCEDURE: The patient was taken to the operating room and placed in a supine position. Anesthesia maintained monitoring of the patient, but he did not require any IV sedation. The right hand and surrounding areas were prepped and draped. A digital block using 1% plain lidocaine and Marcaine was then placed at the base of the right little finger. Interestingly, the patient had very little discomfort with this, as he appears to probably have a significant degree of neuropathy involving the hands, fingers, as well as the lower extremities. Once this was placed, the area which was just to the right, drained spontaneously on the ulnar aspect of the distal phalange in right little finger. This was incised and a small amount of purulent material was evacuated. There was some necrotic material present, which included the skin and subcutaneous tissue and some of the underlying fascia, and this was debrided. At this point, dissection on the volar aspect of the soft tissues adjacent to the distal phalange were spread and any remaining purulence was drained at that level. The patient was also noted to have some purulence in the ulnar aspect underlying the nail. Given this, the nail was freed up and removed, which provided drainage of the paronychia component of this infection. At this point, a 1/4-inch iodoform gauze was placed into the area of the felon drainage, and then a circumferential dressing applied. The patient was taken to the recovery room in satisfactory condition. Cultures of the debrided material and purulence of the felon had been sent as well. Rico Cadena MD /[id number]
== END 2016-10-29 12:45 | disposition home or self-care (01) | DRG 854 ==
LOC: JP.ED 16:45 → JP.MS 20:59
PROVIDERS: ADMIT Family Medicine; ATTEND Hospitalist
PROC: 0J980ZZ Drainage of Abdomen Subcutaneous Tissue and Fascia, Open Approach (ICD-10-PCS; principal; 2016-10-27)
PROC: 0J9K0ZZ Drainage of Left Hand Subcutaneous Tissue and Fascia, Open Approach (ICD-10-PCS; 2016-10-27)
PROC: 0JBK0ZZ Excision of Left Hand Subcutaneous Tissue and Fascia, Open Approach (ICD-10-PCS; 2016-10-27)
PROC: 0HTQXZZ Resection of Finger Nail, External Approach (ICD-10-PCS; 2016-10-27)
DX: A41.9 Sepsis, unspecified organism (principal); R41.82 Altered mental status, unspecified; L03.311 Cellulitis of abdominal wall; E87.4 Mixed disorder of acid-base balance; E78.00 Pure hypercholesterolemia, unspecified; L03.011 Cellulitis of right finger; E11.42 Type 2 diabetes mellitus with diabetic polyneuropathy; R53.1 Weakness; E11.9 Type 2 diabetes mellitus without complications; I12.9 Hypertensive chronic kidney disease with stage 1 through stage 4 chronic kidney disease, or unspecified chronic kidney disease; N18.9 Chronic kidney disease, unspecified; E87.6 Hypokalemia; E78.5 Hyperlipidemia, unspecified; Z79.82 Long term (current) use of aspirin; I25.2 Old myocardial infarction; I25.10 Atherosclerotic heart disease of native coronary artery without angina pectoris; Z95.5 Presence of coronary angioplasty implant and graft; F32.9 Major depressive disorder, single episode, unspecified; J44.9 Chronic obstructive pulmonary disease, unspecified; Z79.01 Long term (current) use of anticoagulants; Z79.899 Other long term (current) drug therapy; Z86.73 Personal history of transient ischemic attack (TIA), and cerebral infarction without residual deficits; Z79.4 Long term (current) use of insulin; Z91.040 Latex allergy status; Z66 Do not resuscitate; Z88.8 Allergy status to other drugs, medicaments and biological substances; Z85.46 Personal history of malignant neoplasm of prostate
CPT/HCPCS: 36415; 36600; 71250; 74176; 80053; 81001; 82803; 83605; 84443; 85025; 85610; 85730; 86140; 86666 ×2; 86753 ×2; 87040 ×2; 87086; 93005; 96361; 96365; 96375; 99285; J0131; J0690; J7040; J7050; 80048; 82962; 83735; 85027; 87070; 87075; 87077; 87186; 87205; 88304; 93010; 94640-76; 97110-GP; 97116-GP; 97162-GP; 99284; A9270-GY; J1650; J3480; J7030

== ENCOUNTER 2016-10-30 08:43 | Emergency (ER) | payer MEDICARE, OTHER ==
[2016-10-30 09:01] VITALS: BP 137/72
[2016-10-30] MEDS ORDERED: Bacitracin Oint 1 GM U/D Packet TOP ONE (10:12)
--- NOTE | 2016-10-30 10:49 | EDM.PDOC ---
ED HPI GENERAL MEDICAL PROBLEM - General Chief Complaint: Wound Recheck Stated Complaint: BLEEDING FROM FINGER WHERE HAS SURGERY Time Seen by Provider: 10/30/16 09:05 Source of Information: Reports: Patient History Limitations: Reports: No Limitations - History of Present Illness INITIAL COMMENTS - FREE TEXT/NARRATIVE: Patient here complaining of uncontrolled bleeding. He was released from the hospital yesterday after Dr. Cadena did some surgery on his right little finger. It has been oozing for a a few days but this morning started having much more rapid bleeding and he's been soaking some dressings. He does take Coumadin. His INR yesterday was about 1.5. - Related Data Allergies Allergy/AdvReac Type Severity Reaction Status Date / Time adhesive tape Allergy Rash Verified 12/05/15 11:42 glipizide Allergy Other Verified 12/05/15 11:42 Influenza Virus Vaccines Allergy Cannot Verified 12/05/15 15:19 Remember latex Allergy Rash Verified 12/05/15 11:42 metolazone Allergy Other Verified 12/05/15 11:42 morphine AdvReac Hallucinati Verified 12/05/15 15:19 ons Home Meds: Home Meds Albuterol Sulfate [Proair Hfa] 2 puff IH Q6HR 05/21/14 [History] Allopurinol [Zyloprim] 100 mg PO DAILY 05/21/14 [History] Betamethasone Dipropionate [Diprolene 0.05% Oint] 1 applic TOP BID 05/21/14 [ History] Furosemide 60 mg PO DAILY 05/21/14 [History] Insulin Aspart [NovoLOG] 1 unit SQ ASDIRECTED PRN 05/21/14 [History] Insulin Detemir [Levemir Flextouch] 75 unit SQ BEDTIME 05/21/14 [History] Levothyroxine [Synthroid] 50 mcg PO QAM 05/21/14 [History] Lovastatin 80 mg PO BEDTIME 05/21/14 [History] Nitroglycerin [Nitrostat] 0.4 mg SL ASDIRECTED 05/21/14 [History] Warfarin Sodium 7.5 mg PO ASDIRECTED 05/21/14 [History] Aspirin [Low Dose Aspirin EC] 81 mg PO DAILY 05/15/15 [History] Fluticasone Propionate [Flonase] 16 gm IN BID 05/15/15 [History] Mupirocin [Bactroban] 22 gm TP TID 05/15/15 [History] Urea [Urea 40% Crm] 28.35 gm TOP BID 05/15/15 [History] Cholecalciferol (Vitamin D3) [Vitamin D3] 2,000 units PO DAILY 12/05/15 [History ] Nortriptyline HCl 75 mg PO BEDTIME 12/05/15 [History] Gabapentin 1 tab PO TID 10/25/16 [History] Cephalexin [IJD: Cephalexin] 500 mg PO .EVERY 8 HOURS #15 cap 10/29/16 [Rx] Past Medical History HEENT History: Reports: Allergic Rhinitis, Hard of Hearing, Other (See Below) Other HEENT History: broken nose Cardiovascular History: Reports: CAD, High Cholesterol, Hypertension, ID, Stents Respiratory History: Reports: COPD, PE Genitourinary History: Reports: Other (See Below) Other Genitourinary History: Chronic Kidney Disease Musculoskeletal History: Reports: Fracture Neurological History: Reports: CVA Psychiatric History: Reports: Depression Endocrine/Metabolic History: Reports: Diabetes, Type II, IDDM, Obesity/BMI 30+ Hematologic History: Reports: Blood Transfusion(s) Oncologic (Cancer) History: Reports: Prostate Dermatologic History: Reports: Other (See Below) Other Dermatologic History: rash - Past Surgical History HEENT Surgical History: Reports: Cataract Surgery, Other (See Below) Cardiovascular Surgical History: Reports: Coronary Artery Stent GI Surgical History: Reports: Cholecystectomy Endocrine Surgical History: Reports: Other (See Below) Musculoskeletal Surgical History: Reports: Shoulder Surgery Other Oncologic Surgeries/Procedures: Had radiation for prostate, so far in remission Social & Family History - Family History Musculoskeletal: Reports: Arthritis Endocrine/Metabolic: Reports: Diabetes, type II Oncologic: Reports: Bone - Tobacco Use Smoking Status *Q: Never Smoker Years of Tobacco use: 25 Packs/Tins Daily: 0.5 Used Tobacco, but Quit: Yes Month Tobacco Last Used: 10/2016 Second Hand Smoke Exposure: No - Caffeine Use Caffeine Use: Reports: Coffee - Alcohol Use Days Per Week of Alcohol Use: 7 Number of Drinks Per Day: 3 Total Drinks Per Week: 21 - Recreational Drug Use Recreational Drug Use: No ED ROS GENERAL - Review of Systems Review Of Systems: ROS reveals no pertinent complaints other than HPI. ED EXAM, GENERAL - Physical Exam Exam: See Below Exam Limited By: No Limitations General Appearance: Alert, WD/WN, No Apparent Distress Extremities: Other (Right little finger. The nail has been removed. There is bleeding from a point at the distal nail bed centrally and then the medial or ulnar side margin 2 different points or bleeding. Pressure to those 2 points stops the bleeding.) Course - Vital Signs Last Recorded V/S: Last Vital Signs Temp 35.6 C 10/30/16 09:40 Pulse 74 10/30/16 09:40 Resp 17 10/30/16 09:40 BP 137/72 10/30/16 09:40 Pulse Ox 94 L 10/30/16 09:40 - Orders/Labs/Meds Meds: Medications Discontinued Medications Generic Name Dose Route Start Last Admin Trade Name Freq PRN Reason Stop Dose Admin Bacitracin 1 dose 10/30/16 10:12 Bacitracin Oint 1 Gm TOP 10/30/16 10:13 ONETIME ONE Lidocaine HCl 5 ml 10/30/16 09:30 10/30/16 09:59 Xylocaine-Mpf 1% INJECT 10/30/16 09:31 5 ml ONETIME ONE Administration - Re-Assessments/Exams Free Text/Narrative Re-Assessment/Exam: 10/30/16 10:48 Procedure: The fingertip was anesthetized with a small amount of 1% plain lidocaine. Patient informed me know that he has peripheral neuropathy and has no sensation in the finger. A single suture was taken from the fingertip to the medial nail margin of the 5-0 chromic and that stopped the bleeding. Bacitracin and a a tube gauze dressing were applied Departure - Departure Time of Disposition: 10:49 Disposition: Home, Self-Care 01 Condition: Fair Clinical Impression: Dressing change or removal, surgical wound - Discharge Information Forms: ED Department Discharge
== END 2016-10-30 11:08 | disposition home or self-care (01) ==
LOC: JP.ED 08:43
DX: Z48.00 Encounter for change or removal of nonsurgical wound dressing (principal); I25.10 Atherosclerotic heart disease of native coronary artery without angina pectoris; I25.2 Old myocardial infarction; Z95.1 Presence of aortocoronary bypass graft; E78.00 Pure hypercholesterolemia, unspecified; J44.9 Chronic obstructive pulmonary disease, unspecified; I12.9 Hypertensive chronic kidney disease with stage 1 through stage 4 chronic kidney disease, or unspecified chronic kidney disease; F32.9 Major depressive disorder, single episode, unspecified; E11.9 Type 2 diabetes mellitus without complications; E66.9 Obesity, unspecified; N18.9 Chronic kidney disease, unspecified; Z88.5 Allergy status to narcotic agent; Z88.8 Allergy status to other drugs, medicaments and biological substances; Z91.040 Latex allergy status; Z88.7 Allergy status to serum and vaccine; Z79.899 Other long term (current) drug therapy; Z79.4 Long term (current) use of insulin; Z98.49 Cataract extraction status, unspecified eye; Z90.49 Acquired absence of other specified parts of digestive tract
CPT/HCPCS: 12001; 99283

== ENCOUNTER 2017-01-31 06:18 | Emergency (ER) | payer MEDICARE, OTHER ==
[2017-01-31] MEDS ORDERED: 50% Dextrose in Water 50 ML Syringe ONE (06:37)
[2017-01-31] MEDS ORDERED: 50% Dextrose in Water 50 ML Syringe IVPUSH ONE (06:40)
--- NOTE | 2017-01-31 07:10 | EDM.PDOC ---
ED HPI GENERAL MEDICAL PROBLEM - General Chief Complaint: General Stated Complaint: [facility] Time Seen by Provider: 01/31/17 07:00 Source of Information: Reports: Patient, EMS, Family History Limitations: Reports: Altered Mental Status - History of Present Illness INITIAL COMMENTS - FREE TEXT/NARRATIVE: 76-year-old male arrives by ambulance for shaking chills, high fever and confusion. He has an infection worsening in his right lower extremity. He was doing relatively well until yesterday evening, worsened overnight. He's had nausea and vomiting but denies any significant pain or shortness of breath. Denies cough. He is not currently on antibiotics. He tore the underside of his right small toe several days ago and his is been cleaning it and putting topical Neosporin on the area. He has significant peripheral neuropathy and does not feel his toes. Onset: Gradual (overnight) Duration: Hour(s): (24 hours) Severity: Severe Associated Symptoms: Reports: Fever/Chills, Malaise. Denies: Chest Pain, Cough , Shortness of Breath - Related Data Allergies Allergy/AdvReac Type Severity Reaction Status Date / Time adhesive tape Allergy Rash Verified 01/31/17 07:04 glipizide Allergy Other Verified 01/31/17 07:04 Influenza Virus Vaccines Allergy Cannot Verified 01/31/17 07:04 Remember latex Allergy Rash Verified 01/31/17 07:04 metolazone Allergy Other Verified 01/31/17 07:04 morphine AdvReac Hallucinati Verified 01/31/17 07:04 ons Home Meds: Home Meds Albuterol Sulfate [Proair Hfa] 2 puff IH Q6HR 05/21/14 [History] Allopurinol [Zyloprim] 100 mg PO DAILY 05/21/14 [History] Betamethasone Dipropionate [Diprolene 0.05% Oint] 1 applic TOP BID 05/21/14 [ History] Furosemide 60 mg PO TID 05/21/14 [History] Insulin Aspart [NovoLOG] 1 unit SQ ASDIRECTED PRN 05/21/14 [History] Insulin Detemir [Levemir Flextouch] 75 unit SQ BEDTIME 05/21/14 [History] Levothyroxine [Synthroid] 50 mcg PO QAM 05/21/14 [History] Lovastatin 80 mg PO BEDTIME 05/21/14 [History] Nitroglycerin [Nitrostat] 0.4 mg SL ASDIRECTED 05/21/14 [History] Warfarin Sodium 7.5 mg PO ASDIRECTED 05/21/14 [History] Aspirin [Low Dose Aspirin EC] 81 mg PO DAILY 05/15/15 [History] Fluticasone Propionate [Flonase] 16 gm IN BID 05/15/15 [History] Mupirocin [Bactroban] 22 gm TP TID 05/15/15 [History] Urea [Urea 40% Crm] 28.35 gm TOP BID 05/15/15 [History] Cholecalciferol (Vitamin D3) [Vitamin D3] 2,000 units PO DAILY 12/05/15 [History ] Nortriptyline HCl 50 mg PO BEDTIME 12/05/15 [History] Gabapentin 1 tab PO TID 10/25/16 [History] Cephalexin [IJD: Cephalexin] 500 mg PO .EVERY 8 HOURS #15 cap 10/29/16 [Rx] Shant/Polymyx B Sulf/Dexameth [Maxitrol Eye Drops] 1 drop EYEBOTH BID 01/31/17 [ History] Past Medical History HEENT History: Reports: Allergic Rhinitis, Hard of Hearing, Other (See Below) Other HEENT History: broken nose Cardiovascular History: Reports: CAD, High Cholesterol, Hypertension, DE, Stents Respiratory History: Reports: COPD, PE Genitourinary History: Reports: Other (See Below) Other Genitourinary History: Chronic Kidney Disease stage 3 Musculoskeletal History: Reports: Fracture Neurological History: Reports: CVA Psychiatric History: Reports: Depression Endocrine/Metabolic History: Reports: Diabetes, Type II, IDDM, Obesity/BMI 30+ Hematologic History: Reports: Blood Transfusion(s) Oncologic (Cancer) History: Reports: Prostate Dermatologic History: Reports: Decubitus Ulcer, Other (See Below) Other Dermatologic History: rash - Past Surgical History HEENT Surgical History: Reports: Cataract Surgery, Laser Surgery, Other (See Below) Cardiovascular Surgical History: Reports: Coronary Artery Stent GI Surgical History: Reports: Cholecystectomy Musculoskeletal Surgical History: Reports: Shoulder Surgery Other Oncologic Surgeries/Procedures: Had radiation for prostate, so far in remission Social & Family History - Family History Musculoskeletal: Reports: Arthritis Endocrine/Metabolic: Reports: Diabetes, type II Oncologic: Reports: Bone - Tobacco Use Smoking Status *Q: Current Status Unknown Years of Tobacco use: 25 Packs/Tins Daily: 0.5 Used Tobacco, but Quit: Yes Month Tobacco Last Used: 10/2016 Second Hand Smoke Exposure: No - Caffeine Use Caffeine Use: Reports: Coffee - Alcohol Use Days Per Week of Alcohol Use: 7 Number of Drinks Per Day: 3 Total Drinks Per Week: 21 - Recreational Drug Use Recreational Drug Use: No ED ROS GENERAL - Review of Systems Review Of Systems: See Below Constitutional: Reports: Fever, Chills, Malaise HEENT: Reports: No Symptoms Respiratory: Reports: Other (Patient denies shortness of breath however he was hypoxic on arrival with an O2 saturation of 86% on room air). Denies: Shortness of Breath Cardiovascular: Denies: Chest Pain, Palpitations GI/Abdominal: Reports: Nausea, Vomiting. Denies: Abdominal Pain : Reports: No Symptoms Skin: Reports: Other (Patient has breakdown of the skin around the right small toe with very warm and erythematous skin over the lower right extremity) Neurological: Reports: Confusion. Denies: Headache Psychiatric: Reports: No Symptoms ED EXAM, GENERAL - Physical Exam Exam: See Below Exam Limited By: Altered Mental Status (Patient is confused and has a very flat affect, high fever) General Appearance: Alert, No Apparent Distress (Patient is not acutely distressed despite being very ill) Eye Exam: Bilateral Eye: EOMI (Patient tracks normally and focuses on you when speaking to him) Respiratory/Chest: No Respiratory Distress, Lungs Clear (There are no abnormal breath sounds other than overall markedly decreased breath sounds are appreciated bilaterally) Cardiovascular: Regular Rate, Rhythm, Tachycardia GI/Abdominal: Soft, Non-Tender, Other (Markedly obese) Extremities: Pedal Edema (Bilateral edema, right greater than left) Course - Vital Signs Last Recorded V/S: Last Vital Signs Temp 102.0 F H 01/31/17 09:21 Pulse 99 01/31/17 09:21 Resp 18 01/31/17 09:21 BP 120/69 01/31/17 09:21 Pulse Ox 96 01/31/17 09:21 - Orders/Labs/Meds Orders: Active Orders 24 hr Category Date Time Status POC Glucose [Blood Glucose Check, Bedside] [RC] ONETIME Care 01/31/17 06:26 Inactive Vital Signs [RC] Q1H Care 01/31/17 07:06 Active CULTURE BLOOD [BC] Urgent Lab 01/31/17 07:30 Received CULTURE BLOOD [BC] Urgent Lab 01/31/17 07:35 Received Blood Culture x2 Reflex Set [OM.PC] Urgent Oth 01/31/17 07:06 Ordered Labs: Laboratory Tests 01/31/17 01/31/17 01/31/17 Range/Units 07:35 07:35 07:35 WBC 19.3 H (4.5-11.0) K/uL RBC 6.19 H (4.30-5.90) M/uL Hgb 19.4 H* D (12.0-15.0) g/dL Hct 55.2 H (40.0-54.0) % MCV 89 (80-98) fL MCH 31 (27-31) pg MCHC 35 (32-36) % Plt Count 145 L (150-400) K/uL Neut % (Auto) 92 H (36-66) % Lymph % (Auto) 2 L (24-44) % [place] % (Auto) 5 (2-6) % Eos % (Auto) 0 L (2-4) % Baso % (Auto) 0 (0-1) % Sodium 140 (140-148) mmol/L Potassium 3.3 L (3.6-5.2) mmol/L Chloride 99 L (100-108) mmol/L Carbon Dioxide 30 (21-32) mmol/L Anion Gap 14.3 H (5.0-14.0) mmol/L BUN 18 (7-18) mg/dL Creatinine 1.4 H (0.8-1.3) mg/dL Est Cr Clr Drug Dosing 50.04 mL/min Estimated GFR (MDRD) 49 L (>60) Glucose 117 H (74-106) mg/dL Lactic Acid 2.9 H (0.4-2.0) mmol/L Calcium 8.8 (8.5-10.1) mg/dL Total Bilirubin 1.7 H (0.2-1.0) mg/dL AST 39 H (15-37) U/L ALT 42 (12-78) U/L Alkaline Phosphatase 120 H (46-116) U/L C-Reactive Protein 2.76 H (0.0-0.3) mg/dL Total Protein 7.5 (6.4-8.2) g/dL Albumin 3.5 (3.4-5.0) g/dL Globulin 4.0 H (2.3-3.5) g/dL Albumin/Globulin Ratio 0.9 L (1.2-2.2) Meds: Medications Discontinued Medications Generic Name Dose Route Start Last Admin Trade Name Abdullahiq PRN Reason Stop Dose Admin Acetaminophen 1,000 mg 01/31/17 08:13 01/31/17 08:22 Tylenol Extra Strength PO 01/31/17 08:14 1,000 mg ONETIME ONE Administration Dextrose/Water 50 ml 01/31/17 06:40 01/31/17 06:40 Dextrose 50% In Water IVPUSH 01/31/17 06:41 50 ml ONETIME ONE Administration Lactated Ringer's 1,000 mls @ 1,000 mls/hr 01/31/17 08:00 01/31/17 07:53 Ringers, Lactated IV 1,000 mls/hr ASDIRECTED OTONIEL Administration Piperacillin/Tazobactam/ 50 mls @ 100 mls/hr 01/31/17 08:00 01/31/17 07:57 Dextrose 3.375 gm/ Premix IV 01/31/17 08:29 100 mls/hr ONETIME ONE Administration Vancomycin HCl 1.8 gm/ Sodium 250 mls @ 125 mls/hr 01/31/17 08:30 01/31/17 08 :39 Chloride IV 01/31/17 10:29 125 mls/hr ONETIME ONE Administration Lactated Ringer's 1,000 mls @ 1,000 mls/hr 01/31/17 08:15 01/31/17 08:18 Ringers, Lactated IV 1,000 mls/hr ASDIRECTED OTONIEL Administration Lactated Ringer's 1,000 mls @ 500 mls/hr 01/31/17 09:30 Ringers, Lactated IV ASDIRECTED OTONIEL - Re-Assessments/Exams Free Text/Narrative Re-Assessment/Exam: 01/31/17 09:21 IVs were started, blood cultures obtained and labs obtained. One view chest x- ray shows no definite infiltrate. The patient was bolused with 1000 mL of LR, a second liter started. After blood cultures were obtained 3.375 g of Invanz along with 1 g of vancomycin was started IV. He was given 1000 mg of oral acetaminophen. White count returned elevated at 19,000, lactic acid was elevated as well as CRP. Please refer to lab results. Our hospitalist did not have an ICU bed available, so Dr. Carey at [facility] was kind enough to accept the patient. He was improving on discharge. Departure - Departure Time of Disposition: 09:41 Disposition: DC/Tfer to Other Condition: Fair Clinical Impression: Cellulitis Qualifiers: Site of cellulitis: extremity Site of cellulitis of extremity: lower extremity Laterality: right Qualified Code(s): L03.115 - Cellulitis of right lower limb Sepsis Qualifiers: Sepsis type: sepsis due to unspecified organism Qualified Code(s): A41.9 - Sepsis, unspecified organism - Discharge Information Referrals: PCP,None [Primary Care Provider] - Forms: ED Department Discharge Care Plan Goals: Patient is being urgently transferred to [facility] for intensive care treatment of sepsis as a result of worsening cellulitis of the right lower extremity. - My Orders Last 24 Hours: My Active Orders 01/31/17 07:06 Vital Signs [RC] Q1H Blood Culture x2 Reflex Set [OM.PC] Urgent 01/31/17 07:30 CULTURE BLOOD [BC] Urgent 01/31/17 07:35 CULTURE BLOOD [BC] Urgent - Assessment/Plan Last 24 Hours: My Active Orders 01/31/17 07:06 Vital Signs [RC] Q1H Blood Culture x2 Reflex Set [OM.PC] Urgent 01/31/17 07:30 CULTURE BLOOD [BC] Urgent 01/31/17 07:35 CULTURE BLOOD [BC] Urgent
[2017-01-31] MEDS ORDERED: Dextrose 5%-Lactated Ringers 1,000 ML IV SCH (07:15)
[2017-01-31] MEDS ORDERED: Piperacillin/Tazobactam 3.375 GM in Sodium Chloride 0.9% 50 ML IV ONE (07:36)
[2017-01-31] MEDS ORDERED: Lactated Ringers 1,000 ML IV SCH ×3 (08:00→09:30)
[2017-01-31] MEDS ORDERED: Piperacillin/Tazobactam/Dext 3.375 GM in Premix Bag 1 BAG IV ONE (08:00)
[2017-01-31] MEDS ORDERED: Acetaminophen 500 MG Tab PO ONE (08:13)
[2017-01-31] MEDS ORDERED: Vancomycin 1.8 GM in Sodium Chloride 0.9% 250 ML IV ONE (08:30)
--- NOTE | 2017-01-31 09:13 | CR ---
Chest 1V Frontal INDICATION: fever, hypoxia FINDINGS: Comparison 12/05/2015. Shallow inspiration. Prominence of the interstitium, likely accentuat ed by shallow inspiration. Early CHF or atypical infectious process is not excluded. A dedicated PA a nd lateral chest x-ray may be helpful clinically feasible.
[2017-01-31 09:22] VITALS: BP 120/69
== END 2017-01-31 09:56 | disposition other institution (70) ==
LOC: JP.ED 06:18
DX: A41.9 Sepsis, unspecified organism (principal); L03.115 Cellulitis of right lower limb; Z87.891 Personal history of nicotine dependence; E11.9 Type 2 diabetes mellitus without complications; I25.10 Atherosclerotic heart disease of native coronary artery without angina pectoris; I10 Essential (primary) hypertension; E78.00 Pure hypercholesterolemia, unspecified; E66.9 Obesity, unspecified; Z79.84 Long term (current) use of oral hypoglycemic drugs; Z79.01 Long term (current) use of anticoagulants; Z79.899 Other long term (current) drug therapy; Z79.82 Long term (current) use of aspirin; Z91.040 Latex allergy status; Z88.5 Allergy status to narcotic agent; Z88.8 Allergy status to other drugs, medicaments and biological substances; Z91.09 Other allergy status, other than to drugs and biological substances
CPT/HCPCS: 36415; 71010; 80053; 82962; 83605; 85025; 86140; 87040; 96365; 96367; 99285; A9270; J2543; J3370; J7050; J7120; 99283

== ENCOUNTER 2017-08-06 14:00 | Inpatient (IN) | payer MEDICARE, OTHER ==
[2017-08-06] MEDS ORDERED: Sodium Chloride 0.9% 1,000 ML IV SCH ×3 (14:15→17:15)
--- NOTE | 2017-08-06 14:43 | EDM.PDOC ---
ED HPI GENERAL MEDICAL PROBLEM - General Chief Complaint: General Stated Complaint: CHEST PAINS VIA [facility] Time Seen by Provider: 08/06/17 14:41 Source of Information: Reports: Patient, Family History Limitations: Reports: No Limitations - History of Present Illness INITIAL COMMENTS - FREE TEXT/NARRATIVE: pt suddenly developed pain across his back and into his chest. He felt mildly sob. He was nervous about his heart. Onset: Today, Other ( started over a few hours. ) Duration: Hour(s): Location: Reports: Chest, Back Associated Symptoms: Reports: Chest Pain, Fever/Chills, Shortness of Breath Bilateral Shoulder Pain Score (Numeric/FACES): 7 Bilateral Leg Pain Score (Numeric/FACES): 10 - Related Data Allergies Allergy/AdvReac Type Severity Reaction Status Date / Time adhesive tape Allergy Rash Verified 01/31/17 07:04 glipizide Allergy Other Verified 01/31/17 07:04 Influenza Virus Vaccines Allergy Cannot Verified 01/31/17 07:04 Remember latex Allergy Rash Verified 01/31/17 07:04 metolazone Allergy Other Verified 01/31/17 07:04 morphine AdvReac Hallucinati Verified 01/31/17 07:04 ons Home Meds: Home Meds Albuterol Sulfate [Proair Hfa] 2 puff IH Q6HR PRN 05/21/14 [History] Allopurinol [Zyloprim] 100 mg PO DAILY 05/21/14 [History] Betamethasone Dipropionate [Diprolene 0.05% Oint] 1 applic TOP BID 05/21/14 [ History] Furosemide 60 mg PO DAILY 05/21/14 [History] Insulin Aspart [NovoLOG] 10 unit SQ TIDMEALS PRN 05/21/14 [History] Insulin Detemir [Levemir Flextouch] 32 unit SQ BEDTIME 05/21/14 [History] Levothyroxine [Synthroid] 50 mcg PO QAM 05/21/14 [History] Lovastatin 80 mg PO BEDTIME 05/21/14 [History] Nitroglycerin [Nitrostat] 0.4 mg SL ASDIRECTED PRN 05/21/14 [History] Warfarin Sodium 7.5 mg PO ASDIRECTED 05/21/14 [History] Aspirin [Low Dose Aspirin EC] 81 mg PO DAILY 05/15/15 [History] Fluticasone Propionate [Flonase] 2 sprays IN DAILY 05/15/15 [History] Mupirocin [Bactroban] 22 gm TP TID 05/15/15 [History] Cholecalciferol (Vitamin D3) [Vitamin D3] 2,000 units PO DAILY 12/05/15 [History ] Gabapentin 1 tab PO TID 10/25/16 [History] Cyanocobalamin (Vitamin B-12) [B-12] 1,000 mcg PO DAILY 08/04/17 [History] Nortriptyline 50 mg PO BEDTIME 08/04/17 [History] Past Medical History HEENT History: Reports: Allergic Rhinitis, Hard of Hearing, Other (See Below) Other HEENT History: broken nose Cardiovascular History: Reports: CAD, High Cholesterol, Hypertension, RI, Stents Respiratory History: Reports: COPD, PE Genitourinary History: Reports: Other (See Below) Other Genitourinary History: Chronic Kidney Disease stage 3 Musculoskeletal History: Reports: Fracture Neurological History: Reports: CVA Psychiatric History: Reports: Depression Endocrine/Metabolic History: Reports: Diabetes, Type II, IDDM, Obesity/BMI 30+ Hematologic History: Reports: Blood Transfusion(s) Oncologic (Cancer) History: Reports: Prostate Dermatologic History: Reports: Decubitus Ulcer, Other (See Below) Other Dermatologic History: rash - Past Surgical History HEENT Surgical History: Reports: Cataract Surgery, Laser Surgery, Other (See Below) Cardiovascular Surgical History: Reports: Coronary Artery Stent GI Surgical History: Reports: Cholecystectomy Musculoskeletal Surgical History: Reports: Shoulder Surgery Other Oncologic Surgeries/Procedures: Had radiation for prostate, so far in remission Social & Family History - Family History Musculoskeletal: Reports: Arthritis Endocrine/Metabolic: Reports: Diabetes, type II Oncologic: Reports: Bone - Tobacco Use Smoking Status *Q: Former Smoker Years of Tobacco use: 25 Packs/Tins Daily: 0.5 Used Tobacco, but Quit: Yes Month/Year Tobacco Last Used: june 2017 Second Hand Smoke Exposure: No - Caffeine Use Caffeine Use: Reports: Coffee - Alcohol Use Days Per Week of Alcohol Use: 7 Number of Drinks Per Day: 3 Total Drinks Per Week: 21 - Recreational Drug Use Recreational Drug Use: No ED ROS GENERAL - Review of Systems Review Of Systems: See Below Constitutional: Reports: Fever, Chills, Malaise HEENT: Reports: No Symptoms Respiratory: Reports: Shortness of Breath Cardiovascular: Reports: Chest Pain, Other ( Pt was having pain in his lower t spine and between his shoulder blades, He was hurting all over. ) ED EXAM, GENERAL - Physical Exam Exam: See Below Free Text/Narrative:: pt arrived complaining of pain between his shoulder blades and some pain in the chest. , He had a fever of 100 on arrival. He did appear quite flushed. Exam Limited By: No Limitations General Appearance: Alert, Moderate Distress, Other (pt had nitro in the ambulance and baby asa. He did not get relief with the nitro. He had a chest xray which did not look remarkable. ) Ears: Normal TMs Nose: Normal Inspection Throat/Mouth: Normal Inspection Head: Atraumatic Neck: Normal Inspection Respiratory/Chest: No Respiratory Distress Cardiovascular: Regular Rate, Rhythm GI/Abdominal: Soft, Non-Tender (Male) Exam: Deferred Rectal (Males) Exam: Deferred Back Exam: Paraspinal Tenderness, Other (Pt is tender in the muscles between the shoulder blade. ) Extremities: Normal Inspection Neurological: Alert, Oriented, Normal Cognition Psychiatric: Normal Affect Course - Vital Signs Last Recorded V/S: Last Vital Signs Temp 37.8 C 08/07/17 04:33 Pulse 73 08/07/17 04:33 Resp 20 08/07/17 04:33 BP 102/52 L 08/07/17 04:33 Pulse Ox 92 L 08/07/17 04:33 - Orders/Labs/Meds Orders: Active Orders 24 hr Category Date Time Status Chest 1V Frontal [CR] Stat Exams 08/06/17 14:15 Taken CULTURE BLOOD [BC] Urgent Lab 08/06/17 15:25 Received CULTURE BLOOD [BC] Urgent Lab 08/06/17 15:35 Received INFLUENZA A+B AG SCREEN [RM] Stat Lab 08/06/17 17:13 Ordered Blood Culture x2 Reflex Set [OM.PC] Urgent Oth 08/06/17 15:24 Ordered EKG 12 Lead [EK] Routine Ther 08/06/17 14:14 Stop Req Medication Orders Acetaminophen (Tylenol) 650 mg PO Q4H PRN PRN Reason: Pain (Mild 1-3)/fever Last Admin: 08/07/17 00:45 Dose: 650 mg Albuterol (Proventil Neb Soln) 2.5 mg NEB Q4H PRN PRN Reason: Shortness Of Breath/wheezing Albuterol/Ipratropium (Duoneb 3.0-0.5 Mg/3 Ml) 3 ml NEB QID PRN PRN Reason: Shortness Of Breath/wheezing Allopurinol (Zyloprim) 100 mg PO DAILY [facility] Aspirin (Halfprin) 81 mg PO DAILY [facility] Dextrose (Glutose 15) 15 gm PO ONETIME PRN PRN Reason: Hypoglycemia Dextrose/Water (Dextrose 50% In Water) 50 ml IV ONETIME PRN PRN Reason: Hypoglycemia Fluticasone Propionate (Flonase) 0 gm NASBOTH DAILY [facility] Furosemide (Lasix) 60 mg PO DAILY [facility] Gabapentin (Neurontin) 300 mg PO TID [facility] Last Admin: 08/06/17 21:20 Dose: 300 mg Levofloxacin/Dextrose 750 mg/ (Premix) 150 mls @ 100 mls/hr IV Q24H [facility] Last Admin: 08/06/17 20:24 Dose: 100 mls/hr Sodium Chloride (Normal Saline) 1,000 mls @ 125 mls/hr IV ASDIRECTED [facility] Last Admin: 08/07/17 05:44 Dose: 125 mls/hr Infusion: 08/07/17 04:24 Dose: 125 mls/hr Admin: 08/06/17 20:24 Dose: 125 mls/hr Insulin Aspart (Novolog) 10 unit SUBCUT TIDMEALS PRN PRN Reason: Blood Glucose Insulin Aspart (Novolog) 0 unit SUBCUT QIDACANDBED [facility]; Protocol Last Admin: 08/06/17 21:16 Dose: 1 units Insulin Detemir (Levemir) 32 unit SUBCUT BEDTIME [facility] Last Admin: 08/06/17 21:16 Dose: 32 units Levothyroxine Sodium (Synthroid) 50 mcg PO QAM [facility] Lovastatin (Mevacor) 80 mg PO BEDTIME [facility] Last Admin: 08/06/17 21:20 Dose: 80 mg Magnesium Hydroxide (Milk Of Magnesia) 30 ml PO Q12H PRN PRN Reason: Constipation Neomycin/Polymyxin/Dexamethasone (Maxitrol Ophth Susp) 0 ml EYEBOTH BID [facility] Last Admin: 08/06/17 20:50 Dose: Not Given Nitroglycerin (Nitrostat) 0.4 mg SL ASDIRECTED PRN PRN Reason: Chest Pain Nortriptyline HCl (Nortriptyline) 50 mg PO BEDTIME [facility] Last Admin: 08/06/17 21:21 Dose: 50 mg Nystatin (Nystop) 0 gm TOP TID [facility] Last Admin: 08/06/17 21:21 Dose: Not Given Ondansetron HCl (Zofran) 4 mg IV Q4H PRN PRN Reason: Nausea/Vomiting Last Admin: 08/07/17 00:45 Dose: 4 mg Oxycodone HCl (Oxycodone) 10 mg PO Q4H PRN PRN Reason: Pain (moderate 4-6) Last Admin: 08/07/17 05:48 Dose: 10 mg Admin: 08/07/17 02:02 Dose: 10 mg Admin: 08/06/17 21:20 Dose: 10 mg Polyethylene Glycol (Miralax) 17 gm PO DAILY PRN PRN Reason: Constipation Senna/Docusate Sodium (Senna Plus) 1 tab PO BID PRN PRN Reason: Constipation Sodium Chloride (Saline Flush) 10 ml FLUSH ASDIRECTED PRN PRN Reason: Keep Vein Open Warfarin Sodium (Coumadin) 7.5 mg PO DAILY [facility] Labs: Laboratory Tests 08/06/17 08/06/17 08/06/17 Range/Units 14:37 14:37 14:37 WBC 9.2 (4.5-11.0) K/uL RBC 5.65 (4.30-5.90) M/uL Hgb 17.4 H D (12.0-15.0) g/dL Hct 50.7 (40.0-54.0) % MCV 90 (80-98) fL MCH 31 (27-31) pg MCHC 34 (32-36) % Plt Count 155 (150-400) K/uL Neut % (Auto) 84 H (36-66) % Lymph % (Auto) 6 L (24-44) % Lewis % (Auto) 9 H (2-6) % Eos % (Auto) 1 L (2-4) % Baso % (Auto) 0 (0-1) % Sodium 138 L (140-148) mmol/L Potassium 3.7 (3.6-5.2) mmol/L Chloride 99 L (100-108) mmol/L Carbon Dioxide 32 (21-32) mmol/L Anion Gap 10.7 (5.0-14.0) mmol/L BUN 20 H (7-18) mg/dL Creatinine 1.5 H (0.8-1.3) mg/dL Est Cr Clr Drug Dosing 42.55 mL/min Estimated GFR (MDRD) 46 L (>60) Glucose 270 H (74-106) mg/dL Lactic Acid 3.2 H (0.4-2.0) mmol/L Calcium 8.8 (8.5-10.1) mg/dL Total Bilirubin 1.7 H (0.2-1.0) mg/dL AST 40 H (15-37) U/L ALT 47 (12-78) U/L Alkaline Phosphatase 130 H (46-116) U/L Troponin I < 0.017 (0.000-0.056) ng/mL C-Reactive Protein (0.0-0.3) mg/dL NT-Pro-B Natriuret Pep (5-450) pg/mL Total Protein 7.2 (6.4-8.2) g/dL Albumin 3.5 (3.4-5.0) g/dL Globulin 3.7 H (2.3-3.5) g/dL Albumin/Globulin Ratio 1.0 L (1.2-2.2) Lipase (73-393) U/L Urine Color Urine Appearance Urine pH (4.5-8.0) Ur Specific Sproul (1.008-1.030) Urine Protein (NEGATIVE) mg/dL Urine Glucose (UA) (NEGATIVE) mg/dL Urine Ketones (NEGATIVE) mg/dL Urine Occult Blood (NEGATIVE) Urine Nitrite (NEGAITVE) Urine Bilirubin (NEGATIVE) Urine Urobilinogen (NORMAL) mg/dL Ur Leukocyte Esterase (NEGATIVE) Urine RBC (0-5) Urine WBC (0-5) Ur Epithelial Cells Amorphous Sediment Urine Bacteria Urine Mucus 08/06/17 08/06/17 08/06/17 Range/Units 15:32 16:09 16:11 WBC (4.5-11.0) K/uL RBC (4.30-5.90) M/uL Hgb (12.0-15.0) g/dL Hct (40.0-54.0) % MCV (80-98) fL MCH (27-31) pg MCHC (32-36) % Plt Count (150-400) K/uL Neut % (Auto) (36-66) % Lymph % (Auto) (24-44) % Lewis % (Auto) (2-6) % Eos % (Auto) (2-4) % Baso % (Auto) (0-1) % Sodium (140-148) mmol/L Potassium (3.6-5.2) mmol/L Chloride (100-108) mmol/L Carbon Dioxide (21-32) mmol/L Anion Gap (5.0-14.0) mmol/L BUN (7-18) mg/dL Creatinine (0.8-1.3) mg/dL Est Cr Clr Drug Dosing mL/min Estimated GFR (MDRD) (>60) Glucose (74-106) mg/dL Lactic Acid (0.4-2.0) mmol/L Calcium (8.5-10.1) mg/dL Total Bilirubin (0.2-1.0) mg/dL AST (15-37) U/L ALT (12-78) U/L Alkaline Phosphatase (46-116) U/L Troponin I (0.000-0.056) ng/mL C-Reactive Protein 1.39 H (0.0-0.3) mg/dL NT-Pro-B Natriuret Pep 87 (5-450) pg/mL Total Protein (6.4-8.2) g/dL Albumin (3.4-5.0) g/dL Globulin (2.3-3.5) g/dL Albumin/Globulin Ratio (1.2-2.2) Lipase (73-393) U/L Urine Color Yellow Urine Appearance Clear Urine pH 6.0 (4.5-8.0) Ur Specific Sproul 1.010 (1.008-1.030) Urine Protein Negative (NEGATIVE) mg/dL Urine Glucose (UA) 1000 H (NEGATIVE) mg/dL Urine Ketones Negative (NEGATIVE) mg/dL Urine Occult Blood Negative (NEGATIVE) Urine Nitrite Negative (NEGAITVE) Urine Bilirubin Negative (NEGATIVE) Urine Urobilinogen Normal (NORMAL) mg/dL Ur Leukocyte Esterase Negative (NEGATIVE) Urine RBC 0-5 (0-5) Urine WBC 0-5 (0-5) Ur Epithelial Cells Not seen Amorphous Sediment Not seen Urine Bacteria Not seen Urine Mucus Not seen 08/06/17 Range/Units 17:40 WBC (4.5-11.0) K/uL RBC (4.30-5.90) M/uL Hgb (12.0-15.0) g/dL Hct (40.0-54.0) % MCV (80-98) fL MCH (27-31) pg MCHC (32-36) % Plt Count (150-400) K/uL Neut % (Auto) (36-66) % Lymph % (Auto) (24-44) % Lewis % (Auto) (2-6) % Eos % (Auto) (2-4) % Baso % (Auto) (0-1) % Sodium (140-148) mmol/L Potassium (3.6-5.2) mmol/L Chloride (100-108) mmol/L Carbon Dioxide (21-32) mmol/L Anion Gap (5.0-14.0) mmol/L BUN (7-18) mg/dL Creatinine (0.8-1.3) mg/dL Est Cr Clr Drug Dosing mL/min Estimated GFR (MDRD) (>60) Glucose (74-106) mg/dL Lactic Acid (0.4-2.0) mmol/L Calcium (8.5-10.1) mg/dL Total Bilirubin (0.2-1.0) mg/dL AST (15-37) U/L ALT (12-78) U/L Alkaline Phosphatase (46-116) U/L Troponin I (0.000-0.056) ng/mL C-Reactive Protein (0.0-0.3) mg/dL NT-Pro-B Natriuret Pep (5-450) pg/mL Total Protein (6.4-8.2) g/dL Albumin (3.4-5.0) g/dL Globulin (2.3-3.5) g/dL Albumin/Globulin Ratio (1.2-2.2) Lipase 150 (73-393) U/L Urine Color Urine Appearance Urine pH (4.5-8.0) Ur Specific Sproul (1.008-1.030) Urine Protein (NEGATIVE) mg/dL Urine Glucose (UA) (NEGATIVE) mg/dL Urine Ketones (NEGATIVE) mg/dL Urine Occult Blood (NEGATIVE) Urine Nitrite (NEGAITVE) Urine Bilirubin (NEGATIVE) Urine Urobilinogen (NORMAL) mg/dL Ur Leukocyte Esterase (NEGATIVE) Urine RBC (0-5) Urine WBC (0-5) Ur Epithelial Cells Amorphous Sediment Urine Bacteria Urine Mucus Meds: Medications Generic Name Dose Route Start Last Admin Trade Name Freq PRN Reason Stop Dose Admin Acetaminophen 650 mg 08/06/17 19:38 08/07/17 00:45 Tylenol PO 650 mg Q4H PRN Administration Pain (Mild 1-3)/fever Albuterol 2.5 mg 08/06/17 19:38 Proventil Neb Soln NEB Q4H PRN Shortness Of Breath/wheezing Albuterol/Ipratropium 3 ml 08/06/17 19:38 Duoneb 3.0-0.5 Mg/3 Ml NEB QID PRN Shortness Of Breath/wheezing Allopurinol 100 mg 08/07/17 09:00 Zyloprim PO DAILY [facility] Aspirin 81 mg 08/07/17 09:00 Halfprin PO DAILY [facility] Dextrose 15 gm 08/06/17 19:38 Glutose 15 PO ONETIME PRN Hypoglycemia Dextrose/Water 50 ml 08/06/17 19:38 Dextrose 50% In Water IV ONETIME PRN Hypoglycemia Fluticasone Propionate 0 gm 08/07/17 09:00 Flonase NASBOTH DAILY [facility] Furosemide 60 mg 08/07/17 09:00 Lasix PO DAILY [facility] Gabapentin 300 mg 08/06/17 21:00 08/06/17 21:20 Neurontin PO 300 mg TID [facility] Administration Levofloxacin/Dextrose 750 mg/ 150 mls @ 100 mls/hr 08/06/17 19:00 08/06/17 20 :24 Premix IV 100 mls/hr Q24H [facility] Administration Sodium Chloride 1,000 mls @ 125 mls/hr 08/06/17 19:38 08/07/17 05:44 Normal Saline IV 125 mls/hr ASDIRECTED [facility] Administration Insulin Aspart 10 unit 08/06/17 19:38 Novolog SUBCUT TIDMEALS PRN Blood Glucose Insulin Aspart 0 unit 08/06/17 20:00 08/06/17 21:16 Novolog SUBCUT 1 units QIDACANDBED [facility] Administration Protocol Insulin Detemir 32 unit 08/06/17 21:00 08/06/17 21:16 Levemir SUBCUT 32 units BEDTIME [facility] Administration Levothyroxine Sodium 50 mcg 08/07/17 09:00 Synthroid PO QAM [facility] Lovastatin 80 mg 08/06/17 21:00 08/06/17 21:20 Mevacor PO 80 mg BEDTIME [facility] Administration Magnesium Hydroxide 30 ml 08/06/17 19:38 Milk Of Magnesia PO Q12H PRN Constipation Neomycin/Polymyxin/Dexamethasone 0 ml 08/06/17 21:00 08/06/17 20:50 Maxitrol Ophth Susp EYEBOTH Not Given BID [facility] Nitroglycerin 0.4 mg 08/06/17 19:38 Nitrostat SL ASDIRECTED PRN Chest Pain Nortriptyline HCl 50 mg 08/06/17 21:00 08/06/17 21:21 Nortriptyline PO 50 mg BEDTIME [facility] Administration Nystatin 0 gm 08/06/17 21:00 08/06/17 21:21 Nystop TOP Not Given TID [facility] Ondansetron HCl 4 mg 08/06/17 19:38 08/07/17 00:45 Zofran IV 4 mg Q4H PRN Administration Nausea/Vomiting Oxycodone HCl 10 mg 08/06/17 19:38 08/07/17 05:48 Oxycodone PO 10 mg Q4H PRN Administration Pain (moderate 4-6) Polyethylene Glycol 17 gm 08/06/17 19:38 Miralax PO DAILY PRN Constipation Senna/Docusate Sodium 1 tab 08/06/17 19:38 Senna Plus PO BID PRN Constipation Sodium Chloride 10 ml 08/06/17 19:38 Saline Flush FLUSH ASDIRECTED PRN Keep Vein Open Warfarin Sodium 7.5 mg 08/07/17 09:00 Coumadin PO DAILY [facility] Discontinued Medications Generic Name Dose Route Start Last Admin Trade Name Freq PRN Reason Stop Dose Admin Albuterol gm 08/06/17 19:38 Ventolin Hfa INH Q4H PRN Wheezing Hydromorphone HCl 0.5 mg 08/06/17 17:02 08/06/17 17:08 Dilaudid IVPUSH 08/06/17 17:03 0.5 mg ONETIME ONE Administration Hydromorphone HCl 0.5 mg 08/06/17 23:13 08/06/17 23:23 Dilaudid IVPUSH 08/06/17 23:14 0.5 mg ONETIME ONE Administration Sodium Chloride 1,000 mls @ 400 mls/hr 08/06/17 14:15 08/06/17 14:41 Normal Saline IV 400 mls/hr ASDIRECTED [facility] Administration Sodium Chloride 1,000 mls @ 999 mls/hr 08/06/17 15:30 08/06/17 17:11 Normal Saline IV 999 mls/hr ASDIRECTED [facility] Administration Sodium Chloride 1,000 mls @ 150 mls/hr 08/06/17 17:15 Normal Saline IV ASDIRECTED [facility] - Re-Assessments/Exams Free Text/Narrative Re-Assessment/Exam: 08/06/17 17:38 chest xray the mediastium is slightly wide. Because of his creatnine he was not able to have a angio of his chest. He has a fever and his lactic acid is up. He did not get relief with nitro. His wbc is not elevated. His urne is clear. Departure - Departure Time of Disposition: 06:00 Disposition: Admitted As Inpatient 67 Condition: Fair Clinical Impression: Dehydration, Spine pain, multilevel Sepsis Qualifiers: Sepsis type: sepsis due to unspecified organism Qualified Code(s): A41.9 - Sepsis, unspecified organism - Discharge Information - My Orders Last 24 Hours: My Active Orders 08/06/17 14:14 EKG 12 Lead [EK] Routine 08/06/17 14:15 Chest 1V Frontal [CR] Stat 08/06/17 15:24 Blood Culture x2 Reflex Set [OM.PC] Urgent 08/06/17 15:25 CULTURE BLOOD [BC] Urgent 08/06/17 15:35 CULTURE BLOOD [BC] Urgent - Assessment/Plan Last 24 Hours: My Active Orders 08/06/17 14:14 EKG 12 Lead [EK] Routine 08/06/17 14:15 Chest 1V Frontal [CR] Stat 08/06/17 15:24 Blood Culture x2 Reflex Set [OM.PC] Urgent 08/06/17 15:25 CULTURE BLOOD [BC] Urgent 08/06/17 15:35 CULTURE BLOOD [BC] Urgent
[2017-08-06] MEDS ORDERED: HYDROmorphone 0.5 MG/0.5 ML Syringe IVPUSH ONE ×2 (17:02→23:13)
--- NOTE | 2017-08-06 18:14 | PCM.HP ---
H&P History of Present Illness - General Date of Service: 08/06/17 Admit Problem/Dx: Admission Diagnosis/Problem Admission Diagnosis/Problem Fever Source of Information: Patient, Family, Old Records, Provider, RN Notes Reviewed History Limitations: Reports: No Limitations - History of Present Illness Initial Comments - Free Text/Narative: Mr. Tinajero is a 76-year-old gentleman who is admitted through the emergency department with fever and myalgias. He was feeling well until this morning when he developed abrupt onset of myalgias with associated weakness and fever. When symptoms do not improve he presented to the emergency department for further evaluation. White blood cell count is normal, chest x-ray shows no obvious infiltrates, urinalysis is clear. He's had no skin lesions or other obvious source of infection. Influenza A and B antigens are negative. Blood cultures have been obtained, lactic acid level found to be mildly elevated. Bilateral Shoulder Pain Score (Numeric/FACES): 7 - Related Data Allergies/Adverse Reactions: Allergies Allergy/AdvReac Type Severity Reaction Status Date / Time adhesive tape Allergy Rash Verified 01/31/17 07:04 glipizide Allergy Other Verified 01/31/17 07:04 Influenza Virus Vaccines Allergy Cannot Verified 01/31/17 07:04 Remember latex Allergy Rash Verified 01/31/17 07:04 metolazone Allergy Other Verified 01/31/17 07:04 morphine AdvReac Hallucinati Verified 01/31/17 07:04 ons Home Medications: Home Meds Albuterol Sulfate [Proair Hfa] 2 puff IH Q6HR PRN 05/21/14 [History] Allopurinol [Zyloprim] 100 mg PO DAILY 05/21/14 [History] Betamethasone Dipropionate [Diprolene 0.05% Oint] 1 applic TOP BID 05/21/14 [ History] Furosemide 60 mg PO DAILY 05/21/14 [History] Insulin Aspart [NovoLOG] 10 unit SQ TIDMEALS PRN 05/21/14 [History] Insulin Detemir [Levemir Flextouch] 32 unit SQ BEDTIME 05/21/14 [History] Levothyroxine [Synthroid] 50 mcg PO QAM 05/21/14 [History] Lovastatin 80 mg PO BEDTIME 05/21/14 [History] Nitroglycerin [Nitrostat] 0.4 mg SL ASDIRECTED PRN 05/21/14 [History] Warfarin Sodium 7.5 mg PO ASDIRECTED 05/21/14 [History] Aspirin [Low Dose Aspirin EC] 81 mg PO DAILY 05/15/15 [History] Fluticasone Propionate [Flonase] 2 sprays IN DAILY 05/15/15 [History] Mupirocin [Bactroban] 22 gm TP TID 05/15/15 [History] Urea [Urea 40% Crm] 28.35 gm TOP BID 05/15/15 [History] Cholecalciferol (Vitamin D3) [Vitamin D3] 2,000 units PO DAILY 12/05/15 [History ] Gabapentin 1 tab PO TID 10/25/16 [History] Shant/Polymyx B Sulf/Dexameth [Maxitrol Eye Drops] 1 drop EYEBOTH BID 01/31/17 [ History] Cyanocobalamin (Vitamin B-12) [B-12] 1,000 mcg PO DAILY 08/04/17 [History] Nortriptyline 50 mg PO BEDTIME 08/04/17 [History] Past Medical History HEENT History: Reports: Allergic Rhinitis, Hard of Hearing, Other (See Below) Other HEENT History: broken nose Cardiovascular History: Reports: CAD, High Cholesterol, Hypertension, AR, Stents Respiratory History: Reports: COPD, PE Genitourinary History: Reports: Other (See Below) Other Genitourinary History: Chronic Kidney Disease stage 3 Musculoskeletal History: Reports: Fracture Neurological History: Reports: CVA Psychiatric History: Reports: Depression Endocrine/Metabolic History: Reports: Diabetes, Type II, IDDM, Obesity/BMI 30+ Hematologic History: Reports: Blood Transfusion(s) Oncologic (Cancer) History: Reports: Prostate Dermatologic History: Reports: Decubitus Ulcer, Other (See Below) Other Dermatologic History: rash - Infectious Disease History Infectious Disease History: Reports: Chicken Pox, Measles, Mumps - Past Surgical History HEENT Surgical History: Reports: Cataract Surgery, Laser Surgery, Other (See Below) Cardiovascular Surgical History: Reports: Coronary Artery Stent GI Surgical History: Reports: Cholecystectomy Musculoskeletal Surgical History: Reports: Shoulder Surgery Other Oncologic Surgeries/Procedures: Had radiation for prostate, so far in remission Social & Family History - Family History Musculoskeletal: Reports: Arthritis Endocrine/Metabolic: Reports: Diabetes, type II Oncologic: Reports: Bone - Tobacco Use Smoking Status *Q: Former Smoker Years of Tobacco use: 25 Packs/Tins Daily: 0.5 Used Tobacco, but Quit: Yes Month/Year Tobacco Last Used: june 2017 Second Hand Smoke Exposure: No - Caffeine Use Caffeine Use: Reports: Coffee - Alcohol Use Days Per Week of Alcohol Use: 7 Number of Drinks Per Day: 3 Total Drinks Per Week: 21 - Recreational Drug Use Recreational Drug Use: No H&P Review of Systems - Review of Systems: Review Of Systems: See Below General: Reports: Fever, Chills, Weakness HEENT: Reports: No Symptoms Pulmonary: Reports: No Symptoms Cardiovascular: Reports: No Symptoms Gastrointestinal: Reports: No Symptoms Genitourinary: Reports: No Symptoms Musculoskeletal: Reports: Muscle Pain, Muscle Stiffness Skin: Reports: No Symptoms Psychiatric: Reports: No Symptoms Neurological: Reports: No Symptoms Hematologic/Lymphatic: Reports: No Symptoms Immunologic: Reports: No Symptoms Exam - Exam Exam: See Below - Vital Signs Vital Signs: Last Vital Signs Temp 100.2 F 08/06/17 16:06 Pulse 91 08/06/17 16:06 Resp 15 08/06/17 16:06 BP 158/86 H 08/06/17 16:06 Pulse Ox 97 08/06/17 16:06 Weight: 275 lb - Exam Quality Assessment: DVT Prophylaxis General: Alert, Oriented, Cooperative, Mild Distress HEENT: Conjunctiva Clear, Hearing Intact, Normal Nasal Septum, Posterior Pharynx Clear, Pupils Equal. No: Mucosa Moist & [place] Neck: Supple, Trachea Midline, +2 Carotid Pulse wo Bruit Lungs: Decreased Breath Sounds, Rhonchi, Wheezing. No: Crackles, Rales Cardiovascular: Regular Rate, Regular Rhythm, Normal S1, Normal S2, Systolic Murmur. No: Diastolic Murmur GI/Abdominal Exam: Soft, Non-Tender, No Organomegaly, No Distention Back Exam: Normal Inspection, Full Range of Motion Extremities: Non-Tender, No Pedal Edema Skin: Warm, Dry, Intact Neurological: Cranial Nerves Intact, Strength Equal Bilateral, Normal Speech, Normal Tone. No: Sensation Intact, Focal Deficit Neuro Extensive - Mental Status: Alert, Oriented x3, Normal Mood/Affect, Normal Cognition, Memory Intact - Patient Data Lab Results Last 24 hrs: Laboratory Results - last 24 hr 08/06/17 08/06/17 08/06/17 Range/Units 14:37 14:37 14:37 WBC 9.2 (4.5-11.0) K/uL RBC 5.65 (4.30-5.90) M/uL Hgb 17.4 H D (12.0-15.0) g/dL Hct 50.7 (40.0-54.0) % MCV 90 (80-98) fL MCH 31 (27-31) pg MCHC 34 (32-36) % Plt Count 155 (150-400) K/uL Neut % (Auto) 84 H (36-66) % Lymph % (Auto) 6 L (24-44) % [place] % (Auto) 9 H (2-6) % Eos % (Auto) 1 L (2-4) % Baso % (Auto) 0 (0-1) % Sodium 138 L (140-148) mmol/L Potassium 3.7 (3.6-5.2) mmol/L Chloride 99 L (100-108) mmol/L Carbon Dioxide 32 (21-32) mmol/L Anion Gap 10.7 (5.0-14.0) mmol/L BUN 20 H (7-18) mg/dL Creatinine 1.5 H (0.8-1.3) mg/dL Est Cr Clr Drug Dosing 42.55 mL/min Estimated GFR (MDRD) 46 L (>60) Glucose 270 H (74-106) mg/dL Lactic Acid 3.2 H (0.4-2.0) mmol/L Calcium 8.8 (8.5-10.1) mg/dL Total Bilirubin 1.7 H (0.2-1.0) mg/dL AST 40 H (15-37) U/L ALT 47 (12-78) U/L Alkaline Phosphatase 130 H (46-116) U/L Troponin I < 0.017 (0.000-0.056) ng/mL C-Reactive Protein (0.0-0.3) mg/dL NT-Pro-B Natriuret Pep (5-450) pg/mL Total Protein 7.2 (6.4-8.2) g/dL Albumin 3.5 (3.4-5.0) g/dL Globulin 3.7 H (2.3-3.5) g/dL Albumin/Globulin Ratio 1.0 L (1.2-2.2) Lipase (73-393) U/L Urine Color Urine Appearance Urine pH (4.5-8.0) Ur Specific [place] (1.008-1.030) Urine Protein (NEGATIVE) mg/dL Urine Glucose (UA) (NEGATIVE) mg/dL Urine Ketones (NEGATIVE) mg/dL Urine Occult Blood (NEGATIVE) Urine Nitrite (NEGAITVE) Urine Bilirubin (NEGATIVE) Urine Urobilinogen (NORMAL) mg/dL Ur Leukocyte Esterase (NEGATIVE) Urine RBC (0-5) Urine WBC (0-5) Ur Epithelial Cells Amorphous Sediment Urine Bacteria Urine Mucus 08/06/17 08/06/17 08/06/17 Range/Units 15:32 16:09 16:11 WBC (4.5-11.0) K/uL RBC (4.30-5.90) M/uL Hgb (12.0-15.0) g/dL Hct (40.0-54.0) % MCV (80-98) fL MCH (27-31) pg MCHC (32-36) % Plt Count (150-400) K/uL Neut % (Auto) (36-66) % Lymph % (Auto) (24-44) % [place] % (Auto) (2-6) % Eos % (Auto) (2-4) % Baso % (Auto) (0-1) % Sodium (140-148) mmol/L Potassium (3.6-5.2) mmol/L Chloride (100-108) mmol/L Carbon Dioxide (21-32) mmol/L Anion Gap (5.0-14.0) mmol/L BUN (7-18) mg/dL Creatinine (0.8-1.3) mg/dL Est Cr Clr Drug Dosing mL/min Estimated GFR (MDRD) (>60) Glucose (74-106) mg/dL Lactic Acid (0.4-2.0) mmol/L Calcium (8.5-10.1) mg/dL Total Bilirubin (0.2-1.0) mg/dL AST (15-37) U/L ALT (12-78) U/L Alkaline Phosphatase (46-116) U/L Troponin I (0.000-0.056) ng/mL C-Reactive Protein 1.39 H (0.0-0.3) mg/dL NT-Pro-B Natriuret Pep 87 (5-450) pg/mL Total Protein (6.4-8.2) g/dL Albumin (3.4-5.0) g/dL Globulin (2.3-3.5) g/dL Albumin/Globulin Ratio (1.2-2.2) Lipase (73-393) U/L Urine Color Yellow Urine Appearance Clear Urine pH 6.0 (4.5-8.0) Ur Specific [place] 1.010 (1.008-1.030) Urine Protein Negative (NEGATIVE) mg/dL Urine Glucose (UA) 1000 H (NEGATIVE) mg/dL Urine Ketones Negative (NEGATIVE) mg/dL Urine Occult Blood Negative (NEGATIVE) Urine Nitrite Negative (NEGAITVE) Urine Bilirubin Negative (NEGATIVE) Urine Urobilinogen Normal (NORMAL) mg/dL Ur Leukocyte Esterase Negative (NEGATIVE) Urine RBC 0-5 (0-5) Urine WBC 0-5 (0-5) Ur Epithelial Cells Not seen Amorphous Sediment Not seen Urine Bacteria Not seen Urine Mucus Not seen 08/06/17 Range/Units 17:40 WBC (4.5-11.0) K/uL RBC (4.30-5.90) M/uL Hgb (12.0-15.0) g/dL Hct (40.0-54.0) % MCV (80-98) fL MCH (27-31) pg MCHC (32-36) % Plt Count (150-400) K/uL Neut % (Auto) (36-66) % Lymph % (Auto) (24-44) % [place] % (Auto) (2-6) % Eos % (Auto) (2-4) % Baso % (Auto) (0-1) % Sodium (140-148) mmol/L Potassium (3.6-5.2) mmol/L Chloride (100-108) mmol/L Carbon Dioxide (21-32) mmol/L Anion Gap (5.0-14.0) mmol/L BUN (7-18) mg/dL Creatinine (0.8-1.3) mg/dL Est Cr Clr Drug Dosing mL/min Estimated GFR (MDRD) (>60) Glucose (74-106) mg/dL Lactic Acid (0.4-2.0) mmol/L Calcium (8.5-10.1) mg/dL Total Bilirubin (0.2-1.0) mg/dL AST (15-37) U/L ALT (12-78) U/L Alkaline Phosphatase (46-116) U/L Troponin I (0.000-0.056) ng/mL C-Reactive Protein (0.0-0.3) mg/dL NT-Pro-B Natriuret Pep (5-450) pg/mL Total Protein (6.4-8.2) g/dL Albumin (3.4-5.0) g/dL Globulin (2.3-3.5) g/dL Albumin/Globulin Ratio (1.2-2.2) Lipase 150 (73-393) U/L Urine Color Urine Appearance Urine pH (4.5-8.0) Ur Specific [place] (1.008-1.030) Urine Protein (NEGATIVE) mg/dL Urine Glucose (UA) (NEGATIVE) mg/dL Urine Ketones (NEGATIVE) mg/dL Urine Occult Blood (NEGATIVE) Urine Nitrite (NEGAITVE) Urine Bilirubin (NEGATIVE) Urine Urobilinogen (NORMAL) mg/dL Ur Leukocyte Esterase (NEGATIVE) Urine RBC (0-5) Urine WBC (0-5) Ur Epithelial Cells Amorphous Sediment Urine Bacteria Urine Mucus Result Diagrams: 08/06/17 14:37 08/06/17 14:37 Ahmet Results Last 24 hrs: Microbiology 08/06/17 17:13 Influenza Type A Antigen Screen - Final Nasal, Unspecified NEGATIVE INFLUENZA A VIRUS AG Influenza Type B Antigen Screen - Final NEGATIVE INFLUENZA B VIRUS AG *Q Meaningful Use (ADM) - VTE *Q VTE Pharmacological Contraindications *Q: High INR Value - VTE Risk Assess *Q Each Risk Factor Represents 1 Point: Obesity ( BMI > 25 kg/m2), Abnormal Pulmonary Function (COPD) Total Score 1 Point Risk Factors: 2 Each Risk Factor Represents 2 Points: None Total Score 2 Point Risk Factors: 0 Each Risk Factor Represents 3 Points: Age 75 Years or Greater Total Score 3 Point Risk Factors: 3 Each Risk Factor Represents 5 Points: None Total Score 5 Point Risk Factors: 0 Venous Thromboembolism Risk Factor Score *Q: 5 Problem List Initiated/Reviewed/Updated: Yes Orders Last 24hrs: Active Orders 24 hr Category Date Time Status Patient Status Manage Transfer [TRANSFER] Routine ADT 08/06/17 17:57 Ordered EKG Documentation Completion [RC] ASDIRECTED Care 08/06/17 14:14 Active Chest 1V Frontal [CR] Stat Exams 08/06/17 14:15 Taken CULTURE BLOOD [BC] Urgent Lab 08/06/17 15:25 Received CULTURE BLOOD [BC] Urgent Lab 08/06/17 15:35 Received INFLUENZA A+B AG SCREEN [RM] Stat Lab 08/06/17 17:13 Ordered UA W/MICROSCOPIC [URIN] Urgent Lab 08/06/17 15:32 Ordered Sodium Chloride 0.9% [Normal Saline] 1,000 ml Med 08/06/17 14:15 Active IV ASDIRECTED Sodium Chloride 0.9% [Normal Saline] 1,000 ml Med 08/06/17 15:30 Active IV ASDIRECTED Sodium Chloride 0.9% [Normal Saline] 1,000 ml Med 08/06/17 17:15 Active IV ASDIRECTED Blood Culture x2 Reflex Set [OM.PC] Urgent Oth 08/06/17 15:24 Ordered Resuscitation Status Routine Resus Stat 08/06/17 18:03 Ordered EKG 12 Lead [EK] Routine Ther 08/06/17 14:14 Ordered Medication Orders Sodium Chloride (Normal Saline) 1,000 mls @ 400 mls/hr IV ASDIRECTED [facility] Last Admin: 08/06/17 14:41 Dose: 400 mls/hr Sodium Chloride (Normal Saline) 1,000 mls @ 999 mls/hr IV ASDIRECTED OTONIEL Last Admin: 08/06/17 17:11 Dose: 999 mls/hr Sodium Chloride (Normal Saline) 1,000 mls @ 150 mls/hr IV ASDIRECTED OTONIEL Assessment/Plan Comment:: ASSESSMENT AND PLAN FEVER-abrupt onset this morning associated with significant myalgias and weakness. On evaluation the emergency department no obvious etiology identified , influenza antigens are negative. Most likely source would seem to be pulmonary especially in light of his history of COPD. Lactic acid mildly elevated, likely secondary to dehydration. Sepsis much less likely, he is otherwise hemodynamically stable. -IV fluids for hydration -Repeat lactic acid level later this evening and again in a.m. -Blood cultures pending -levofloxacin 750 mg IV every 24 hours -repeat chest x-ray in a.m. after hydration TYPE 2 DIABETES MELLITUS -Continue outpatient dosing of insulin -4 times a day glucometers -Low-dose sliding scale NovoLog CHRONIC KIDNEY DISEASE STAGE III -closely monitor urine output and renal function COPD -Continue outpatient medical regimen HISTORY OF DEEP VEIN THROMBOSIS AND PULMONARY EMBOLISM-on long-term oral anticoagulation with warfarin -continue outpatient dosing of warfarin -INR in a.m. MAINTENANCE ISSUES -DVT prophylaxis; current therapy with warfarin should provide adequate DVT prophylaxis -GI prophylaxis; not indicated -Mcdonald catheter; not indicated -Nutrition;Consistent carb diet -Nicotine dependence; not required CODE STATUS- FULL CODE ADMISSION STATUS-patient will be admitted to inpatient status, expect at least a 2 night hospital stay for evaluation and management of problems as outlined above. At the time of this admission I do not reasonably expected evaluation and management of this problem will require more than a 96 hour hospital stay. DISPOSITION-anticipate discharge to home after the hospital stay. PRIMARY CARE PROVIDER- Dr. Thomas
[2017-08-06] MEDS ORDERED: Levofloxacin/Dextrose 5%-Water 750 MG in Premix Bag 1 BAG IV SCH (19:00)
[2017-08-06] MEDS ORDERED: Albuterol/Ipratropium 3.0-0.5 MG/3 ML Neb Soln NEB PRN (19:38)
[2017-08-06] MEDS ORDERED: Polyethylene Glycol 3350 Powder 17 GM Packet PO PRN (19:38)
[2017-08-06] MEDS ORDERED: Albuterol 8 GM Inhaler INH PRN (19:38)
[2017-08-06] MEDS ORDERED: Glucose Gel 15 GM in 37.5 GM Tube PO PRN (19:38)
[2017-08-06] MEDS ORDERED: Sodium Chloride 0.9% 10 ML Syringe FLUSH PRN (19:38)
[2017-08-06] MEDS ORDERED: Nitroglycerin 0.4 MG Tab.SL SL PRN (19:38)
[2017-08-06] MEDS ORDERED: Insulin Aspart 100 Units/ML 3 ML Pen SUBCUT PRN (19:38)
[2017-08-06] MEDS ORDERED: Albuterol 0.083% 2.5 MG/3 ML Neb Soln NEB PRN (19:38)
[2017-08-06] MEDS ORDERED: 50% Dextrose in Water 50 ML Syringe IV PRN (19:38)
[2017-08-06] MEDS ORDERED: Magnesium Hydroxide 400 MG/5 ML Susp 30 ML Cup PO PRN (19:38)
[2017-08-06] MEDS: Sodium Chloride 0.9% 1,000 ML IV SCH (20:24)
[2017-08-06] MEDS: Dexamethasone/Neomycin/Polymyxin B Ophth Susp 5 ML Bottle EYEBOTH SCH (20:50)
[2017-08-06] MEDS ORDERED: Nystatin Topical Powder 15 GM Bottle TOP SCH (21:00)
[2017-08-06] MEDS: Insulin Aspart 100 Units/ML 3 ML Pen SUBCUT SCH (21:16)
[2017-08-06] MEDS: Insulin Detemir 100 Units/ML 3 ML Pen SUBCUT SCH (21:16)
[2017-08-06] MEDS: oxyCODONE 5 MG Tab PO PRN (21:20)
[2017-08-06] MEDS: Gabapentin 300 MG Cap PO SCH (21:20)
[2017-08-06] MEDS: Nortriptyline 25 MG Cap PO SCH (21:21)
[2017-08-07] MEDS: Acetaminophen 325 MG Tab PO PRN ×2 (00:45→16:54)
[2017-08-07] MEDS: Ondansetron 4 MG/2 ML SDV IV PRN (00:45)
[2017-08-07] MEDS: oxyCODONE 5 MG Tab PO PRN ×4 (02:02→21:30)
[2017-08-07] MEDS: Sodium Chloride 0.9% 1,000 ML IV SCH (05:44)
[2017-08-07] MEDS: Insulin Aspart 100 Units/ML 3 ML Pen SUBCUT SCH ×4 (08:00→21:24)
[2017-08-07] MEDS ORDERED: Albuterol 8 GM Inhaler INH PRN (08:00)
[2017-08-07] MEDS: Fluticasone Propionate Nasal Spray 16 GM Bottle NASBOTH SCH (09:44)
[2017-08-07] MEDS: Levothyroxine 50 MCG Tab PO SCH (09:45)
[2017-08-07] MEDS: Gabapentin 300 MG Cap PO SCH ×3 (09:45→21:26)
[2017-08-07] MEDS: Allopurinol 100 MG Tab PO SCH (09:45)
[2017-08-07] MEDS: Aspirin 81 MG Tab.EC PO SCH (09:46)
[2017-08-07] MEDS: Furosemide 20 MG Tab PO SCH (09:46)
[2017-08-07] MEDS: Nystatin Topical Powder 15 GM Bottle TOP SCH ×3 (09:47→21:26)
--- NOTE | 2017-08-07 09:59 | PCM.PN ---
- General Info Date of Service: 08/07/17 Subjective Update: Mr. Tinajero did experience recurrent temperature elevation during the night and was uncomfortable because of his restless legs and pain related to peripheral neuropathy. White blood cell count remains within normal range, lactic acid has normalized with IV fluids. Follow-up chest x-ray obtained after hydration shows no obvious infiltrates. - Review of Systems General: Reports: Fever, Weakness, Chills Pulmonary: Reports: Shortness of Breath. Denies: Cough, Wheezing Cardiovascular: Reports: Edema. Denies: Chest Pain, Palpitations, Dyspnea on Exertion, Orthopnea, PND Gastrointestinal: Reports: No Symptoms - Patient Data Vitals - Most Recent: Last Vital Signs Temp 99.2 F 08/07/17 08:11 Pulse 63 08/07/17 08:11 Resp 16 08/07/17 08:11 BP 93/42 L 08/07/17 08:11 Pulse Ox 95 08/07/17 08:11 Weight - Most Recent: 275 lb I&O - Last 24 Hours: Intake & Output 08/06/17 08/07/17 08/07/17 22:59 06:59 14:59 Intake Total 2240 1760 Output Total 450 450 Balance 1790 1760 -450 Lab Results Last 24 Hours: Laboratory Results - last 24 hr 08/06/17 08/06/17 08/06/17 Range/Units 14:37 14:37 14:37 WBC 9.2 (4.5-11.0) K/uL RBC 5.65 (4.30-5.90) M/uL Hgb 17.4 H D (12.0-15.0) g/dL Hct 50.7 (40.0-54.0) % MCV 90 (80-98) fL MCH 31 (27-31) pg MCHC 34 (32-36) % Plt Count 155 (150-400) K/uL Neut % (Auto) 84 H (36-66) % Lymph % (Auto) 6 L (24-44) % [place] % (Auto) 9 H (2-6) % Eos % (Auto) 1 L (2-4) % Baso % (Auto) 0 (0-1) % PT (9.5-12.0) sec INR (0.80-1.20) Sodium 138 L (140-148) mmol/L Potassium 3.7 (3.6-5.2) mmol/L Chloride 99 L (100-108) mmol/L Carbon Dioxide 32 (21-32) mmol/L Anion Gap 10.7 (5.0-14.0) mmol/L BUN 20 H (7-18) mg/dL Creatinine 1.5 H (0.8-1.3) mg/dL Est Cr Clr Drug Dosing 42.55 mL/min Estimated GFR (MDRD) 46 L (>60) Glucose 270 H (74-106) mg/dL Lactic Acid 3.2 H (0.4-2.0) mmol/L Calcium 8.8 (8.5-10.1) mg/dL Magnesium (1.8-2.4) mg/dL Total Bilirubin 1.7 H (0.2-1.0) mg/dL AST 40 H (15-37) U/L ALT 47 (12-78) U/L Alkaline Phosphatase 130 H (46-116) U/L Troponin I < 0.017 (0.000-0.056) ng/mL C-Reactive Protein (0.0-0.3) mg/dL NT-Pro-B Natriuret Pep (5-450) pg/mL Total Protein 7.2 (6.4-8.2) g/dL Albumin 3.5 (3.4-5.0) g/dL Globulin 3.7 H (2.3-3.5) g/dL Albumin/Globulin Ratio 1.0 L (1.2-2.2) Lipase (73-393) U/L Urine Color Urine Appearance Urine pH (4.5-8.0) Ur Specific [place] (1.008-1.030) Urine Protein (NEGATIVE) mg/dL Urine Glucose (UA) (NEGATIVE) mg/dL Urine Ketones (NEGATIVE) mg/dL Urine Occult Blood (NEGATIVE) Urine Nitrite (NEGAITVE) Urine Bilirubin (NEGATIVE) Urine Urobilinogen (NORMAL) mg/dL Ur Leukocyte Esterase (NEGATIVE) Urine RBC (0-5) Urine WBC (0-5) Ur Epithelial Cells Amorphous Sediment Urine Bacteria Urine Mucus 08/06/17 08/06/17 08/06/17 Range/Units 15:32 16:09 16:11 WBC (4.5-11.0) K/uL RBC (4.30-5.90) M/uL Hgb (12.0-15.0) g/dL Hct (40.0-54.0) % MCV (80-98) fL MCH (27-31) pg MCHC (32-36) % Plt Count (150-400) K/uL Neut % (Auto) (36-66) % Lymph % (Auto) (24-44) % [place] % (Auto) (2-6) % Eos % (Auto) (2-4) % Baso % (Auto) (0-1) % PT (9.5-12.0) sec INR (0.80-1.20) Sodium (140-148) mmol/L Potassium (3.6-5.2) mmol/L Chloride (100-108) mmol/L Carbon Dioxide (21-32) mmol/L Anion Gap (5.0-14.0) mmol/L BUN (7-18) mg/dL Creatinine (0.8-1.3) mg/dL Est Cr Clr Drug Dosing mL/min Estimated GFR (MDRD) (>60) Glucose (74-106) mg/dL Lactic Acid (0.4-2.0) mmol/L Calcium (8.5-10.1) mg/dL Magnesium (1.8-2.4) mg/dL Total Bilirubin (0.2-1.0) mg/dL AST (15-37) U/L ALT (12-78) U/L Alkaline Phosphatase (46-116) U/L Troponin I (0.000-0.056) ng/mL C-Reactive Protein 1.39 H (0.0-0.3) mg/dL NT-Pro-B Natriuret Pep 87 (5-450) pg/mL Total Protein (6.4-8.2) g/dL Albumin (3.4-5.0) g/dL Globulin (2.3-3.5) g/dL Albumin/Globulin Ratio (1.2-2.2) Lipase (73-393) U/L Urine Color Yellow Urine Appearance Clear Urine pH 6.0 (4.5-8.0) Ur Specific [place] 1.010 (1.008-1.030) Urine Protein Negative (NEGATIVE) mg/dL Urine Glucose (UA) 1000 H (NEGATIVE) mg/dL Urine Ketones Negative (NEGATIVE) mg/dL Urine Occult Blood Negative (NEGATIVE) Urine Nitrite Negative (NEGAITVE) Urine Bilirubin Negative (NEGATIVE) Urine Urobilinogen Normal (NORMAL) mg/dL Ur Leukocyte Esterase Negative (NEGATIVE) Urine RBC 0-5 (0-5) Urine WBC 0-5 (0-5) Ur Epithelial Cells Not seen Amorphous Sediment Not seen Urine Bacteria Not seen Urine Mucus Not seen 08/06/17 08/06/17 08/07/17 Range/Units 17:40 21:00 04:30 WBC (4.5-11.0) K/uL RBC (4.30-5.90) M/uL Hgb (12.0-15.0) g/dL Hct (40.0-54.0) % MCV (80-98) fL MCH (27-31) pg MCHC (32-36) % Plt Count (150-400) K/uL Neut % (Auto) (36-66) % Lymph % (Auto) (24-44) % [place] % (Auto) (2-6) % Eos % (Auto) (2-4) % Baso % (Auto) (0-1) % PT (9.5-12.0) sec INR (0.80-1.20) Sodium (140-148) mmol/L Potassium (3.6-5.2) mmol/L Chloride (100-108) mmol/L Carbon Dioxide (21-32) mmol/L Anion Gap (5.0-14.0) mmol/L BUN (7-18) mg/dL Creatinine (0.8-1.3) mg/dL Est Cr Clr Drug Dosing mL/min Estimated GFR (MDRD) (>60) Glucose (74-106) mg/dL Lactic Acid 2.3 H 1.5 (0.4-2.0) mmol/L Calcium (8.5-10.1) mg/dL Magnesium (1.8-2.4) mg/dL Total Bilirubin (0.2-1.0) mg/dL AST (15-37) U/L ALT (12-78) U/L Alkaline Phosphatase (46-116) U/L Troponin I (0.000-0.056) ng/mL C-Reactive Protein (0.0-0.3) mg/dL NT-Pro-B Natriuret Pep (5-450) pg/mL Total Protein (6.4-8.2) g/dL Albumin (3.4-5.0) g/dL Globulin (2.3-3.5) g/dL Albumin/Globulin Ratio (1.2-2.2) Lipase 150 (73-393) U/L Urine Color Urine Appearance Urine pH (4.5-8.0) Ur Specific [place] (1.008-1.030) Urine Protein (NEGATIVE) mg/dL Urine Glucose (UA) (NEGATIVE) mg/dL Urine Ketones (NEGATIVE) mg/dL Urine Occult Blood (NEGATIVE) Urine Nitrite (NEGAITVE) Urine Bilirubin (NEGATIVE) Urine Urobilinogen (NORMAL) mg/dL Ur Leukocyte Esterase (NEGATIVE) Urine RBC (0-5) Urine WBC (0-5) Ur Epithelial Cells Amorphous Sediment Urine Bacteria Urine Mucus 08/07/17 08/07/17 08/07/17 Range/Units 04:30 04:30 04:30 WBC 8.2 (4.5-11.0) K/uL RBC 5.01 (4.30-5.90) M/uL Hgb 15.8 H (12.0-15.0) g/dL Hct 45.3 (40.0-54.0) % MCV 90 (80-98) fL MCH 32 H (27-31) pg MCHC 35 (32-36) % Plt Count 150 (150-400) K/uL Neut % (Auto) 79 H (36-66) % Lymph % (Auto) 9 L (24-44) % [place] % (Auto) 11 H (2-6) % Eos % (Auto) 1 L (2-4) % Baso % (Auto) 0 (0-1) % PT 12.3 H (9.5-12.0) sec INR 1.14 (0.80-1.20) Sodium 137 L (140-148) mmol/L Potassium 3.6 (3.6-5.2) mmol/L Chloride 101 (100-108) mmol/L Carbon Dioxide 28 (21-32) mmol/L Anion Gap 11.6 (5.0-14.0) mmol/L BUN 18 (7-18) mg/dL Creatinine 1.4 H (0.8-1.3) mg/dL Est Cr Clr Drug Dosing 45.59 mL/min Estimated GFR (MDRD) 49 L (>60) Glucose 175 H (74-106) mg/dL Lactic Acid (0.4-2.0) mmol/L Calcium 8.2 L (8.5-10.1) mg/dL Magnesium 1.8 (1.8-2.4) mg/dL Total Bilirubin (0.2-1.0) mg/dL AST (15-37) U/L ALT (12-78) U/L Alkaline Phosphatase (46-116) U/L Troponin I (0.000-0.056) ng/mL C-Reactive Protein (0.0-0.3) mg/dL NT-Pro-B Natriuret Pep (5-450) pg/mL Total Protein (6.4-8.2) g/dL Albumin (3.4-5.0) g/dL Globulin (2.3-3.5) g/dL Albumin/Globulin Ratio (1.2-2.2) Lipase (73-393) U/L Urine Color Urine Appearance Urine pH (4.5-8.0) Ur Specific [place] (1.008-1.030) Urine Protein (NEGATIVE) mg/dL Urine Glucose (UA) (NEGATIVE) mg/dL Urine Ketones (NEGATIVE) mg/dL Urine Occult Blood (NEGATIVE) Urine Nitrite (NEGAITVE) Urine Bilirubin (NEGATIVE) Urine Urobilinogen (NORMAL) mg/dL Ur Leukocyte Esterase (NEGATIVE) Urine RBC (0-5) Urine WBC (0-5) Ur Epithelial Cells Amorphous Sediment Urine Bacteria Urine Mucus Ahmet Results Last 24 Hours: Microbiology 08/06/17 17:13 Influenza Type A Antigen Screen - Final Nasal, Unspecified NEGATIVE INFLUENZA A VIRUS AG Influenza Type B Antigen Screen - Final NEGATIVE INFLUENZA B VIRUS AG Med Orders - Current: Current Medications Acetaminophen (Tylenol) 650 mg PO Q4H PRN PRN Reason: Pain (Mild 1-3)/fever Last Admin: 08/07/17 00:45 Dose: 650 mg Albuterol (Proventil Neb Soln) 2.5 mg NEB Q4H PRN PRN Reason: Shortness Of Breath/wheezing Albuterol (Ventolin Hfa) 0 gm INH Q4H PRN PRN Reason: Wheezing Albuterol/Ipratropium (Duoneb 3.0-0.5 Mg/3 Ml) 3 ml NEB QID PRN PRN Reason: Shortness Of Breath/wheezing Allopurinol (Zyloprim) 100 mg PO DAILY [facility] Last Admin: 08/07/17 09:45 Dose: 100 mg Aspirin (Halfprin) 81 mg PO DAILY [facility] Last Admin: 08/07/17 09:46 Dose: 81 mg Dextrose (Glutose 15) 15 gm PO ONETIME PRN PRN Reason: Hypoglycemia Dextrose/Water (Dextrose 50% In Water) 50 ml IV ONETIME PRN PRN Reason: Hypoglycemia Enoxaparin Sodium (Lovenox) 120 mg SUBCUT Q12H [facility] Fluticasone Propionate (Flonase) 0 gm NASBOTH DAILY [facility] Last Admin: 08/07/17 09:44 Dose: 2 spray Furosemide (Lasix) 60 mg PO DAILY [facility] Last Admin: 08/07/17 09:46 Dose: 60 mg Gabapentin (Neurontin) 300 mg PO TID [facility] Last Admin: 08/07/17 09:45 Dose: 300 mg Levofloxacin/Dextrose 750 mg/ (Premix) 150 mls @ 100 mls/hr IV Q24H [facility] Insulin Aspart (Novolog) 10 unit SUBCUT TIDMEALS PRN PRN Reason: Blood Glucose Insulin Aspart (Novolog) 0 unit SUBCUT QIDACANDBED [facility]; Protocol Last Admin: 08/07/17 08:00 Dose: 1 units Insulin Detemir (Levemir) 32 unit SUBCUT BEDTIME [facility] Last Admin: 08/06/17 21:16 Dose: 32 units Levothyroxine Sodium (Synthroid) 50 mcg PO DAILY@0730 [facility] Last Admin: 08/07/17 09:45 Dose: 50 mcg Lovastatin (Mevacor) 80 mg PO BEDTIME [facility] Last Admin: 08/06/17 21:20 Dose: 80 mg Magnesium Hydroxide (Milk Of Magnesia) 30 ml PO Q12H PRN PRN Reason: Constipation Nitroglycerin (Nitrostat) 0.4 mg SL ASDIRECTED PRN PRN Reason: Chest Pain Nortriptyline HCl (Nortriptyline) 50 mg PO BEDTIME [facility] Last Admin: 08/06/17 21:21 Dose: 50 mg Nystatin (Nystop) 0 gm TOP TID [facility] Last Admin: 08/07/17 09:47 Dose: 1 applic Ondansetron HCl (Zofran) 4 mg IV Q4H PRN PRN Reason: Nausea/Vomiting Last Admin: 08/07/17 00:45 Dose: 4 mg Oxycodone HCl (Oxycodone) 10 mg PO Q4H PRN PRN Reason: Pain (moderate 4-6) Last Admin: 08/07/17 05:48 Dose: 10 mg Polyethylene Glycol (Miralax) 17 gm PO DAILY PRN PRN Reason: Constipation Senna/Docusate Sodium (Senna Plus) 1 tab PO BID PRN PRN Reason: Constipation Sodium Chloride (Saline Flush) 10 ml FLUSH ASDIRECTED PRN PRN Reason: Keep Vein Open Warfarin Sodium (Coumadin) 10 mg PO ONETIME ONE Stop: 08/07/17 13:01 Discontinued Medications Albuterol (Ventolin Hfa) gm INH Q4H PRN PRN Reason: Wheezing Hydromorphone HCl (Dilaudid) 0.5 mg IVPUSH ONETIME ONE Stop: 08/06/17 17:03 Last Admin: 08/06/17 17:08 Dose: 0.5 mg Hydromorphone HCl (Dilaudid) 0.5 mg IVPUSH ONETIME ONE Stop: 08/06/17 23:14 Last Admin: 08/06/17 23:23 Dose: 0.5 mg Sodium Chloride (Normal Saline) 1,000 mls @ 400 mls/hr IV ASDIRECTED [facility] Last Admin: 08/06/17 14:41 Dose: 400 mls/hr Sodium Chloride (Normal Saline) 1,000 mls @ 999 mls/hr IV ASDIRECTED [facility] Last Admin: 08/06/17 17:11 Dose: 999 mls/hr Sodium Chloride (Normal Saline) 1,000 mls @ 150 mls/hr IV ASDIRECTED [facility] Levofloxacin/Dextrose 750 mg/ (Premix) 150 mls @ 100 mls/hr IV Q24H [facility] Last Admin: 08/06/17 20:24 Dose: 100 mls/hr Sodium Chloride (Normal Saline) 1,000 mls @ 125 mls/hr IV ASDIRECTED [facility] Last Admin: 08/07/17 05:44 Dose: 125 mls/hr Neomycin/Polymyxin/Dexamethasone (Maxitrol Ophth Susp) 0 ml EYEBOTH BID [facility] Last Admin: 08/06/17 20:50 Dose: Not Given Nystatin (Nystop) 0 gm TOP TID [facility] Last Admin: 08/06/17 21:21 Dose: Not Given Warfarin Sodium (Coumadin) 7.5 mg PO DAILY@1300 [facility] - Exam Quality Assessment: DVT Prophylaxis General: Alert, Oriented, Cooperative, Mild Distress Lungs: Clear to Auscultation, Normal Respiratory Effort Cardiovascular: Regular Rate, Regular Rhythm, No Murmurs GI/Abdominal Exam: Soft, Non-Tender, No Organomegaly, No Distention Extremities: Non-Tender, Pedal Edema Skin: Warm, Dry, Rash (Groin consistent with yeast dermatitis) - Problem List Review Problem List Initiated/Reviewed/Updated: Yes - My Orders Last 24 Hours: My Active Orders 08/06/17 17:13 INFLUENZA A+B AG SCREEN [] Stat 08/06/17 18:03 Resuscitation Status Routine 08/06/17 19:38 Patient Status [ADT] Routine Ambulate [RC] QID Blood Glucose Check, Bedside [RC] QIDACANDBED Communication Order [RC] STAT Diabetes Education [RC] Click to Edit Height and Weight [RC] DAILY Intake and Output [RC] QSHIFT Notify Provider Vital Signs [RC] ASDIRECTED Notify Provider [RC] PRN Oxygen Therapy [RC] PRN Peripheral IV Care [RC] Q12H RT Aerosol Therapy [RC] ASDIRECTED Up to Chair [RC] QID VTE/DVT Education [RC] Per Unit Routine Vital Signs [RC] Q4H Acetaminophen [Tylenol] 650 mg PO Q4H PRN Albuterol [Proventil Neb Soln] 2.5 mg NEB Q4H PRN Albuterol/Ipratropium [DuoNeb 3.0-0.5 MG/3 ML] 3 ml NEB QID PRN Dextrose 50% in Water 50 ml IV ONETIME PRN Dextrose [Glutose 15] 15 gm PO ONETIME PRN Docusate Sodium/Sennosides [Senna Plus] 1 tab PO BID PRN Insulin Aspart [NovoLOG] 10 unit SUBCUT TIDMEALS PRN Magnesium Hydroxide [Milk of Magnesia] 30 ml PO Q12H PRN Nitroglycerin [Nitrostat] 0.4 mg SL ASDIRECTED PRN Ondansetron [Zofran] 4 mg IV Q4H PRN Polyethylene Glycol 3350 [MiraLAX] 17 gm PO DAILY PRN Sodium Chloride 0.9% [Saline Flush] 10 ml FLUSH ASDIRECTED PRN oxyCODONE 10 mg PO Q4H PRN Peripheral IV Insertion Adult [OM.PC] Routine VTE Pharmacological Contraindications [AST] Per Unit Routine 08/06/17 20:00 Insulin Aspart [NovoLOG] See Protocol SUBCUT QIDACANDBED 08/06/17 21:00 Gabapentin [Neurontin] 300 mg PO TID Insulin Detemir [Levemir] 32 unit SUBCUT BEDTIME Lovastatin [Mevacor] 80 mg PO BEDTIME Nortriptyline 50 mg PO BEDTIME 08/06/17 Dinner Consistent Carbohydrate Diet [DIET] 08/07/17 04:15 Chest 1V Frontal [CR] Timed 08/07/17 08:00 Albuterol [Ventolin HFA] 0 gm INH Q4H PRN 08/07/17 09:00 Allopurinol [Zyloprim] 100 mg PO DAILY Aspirin [Halfprin] 81 mg PO DAILY Fluticasone Propionate [Flonase] 0 gm NASBOTH DAILY Furosemide [Lasix] 60 mg PO DAILY Levothyroxine [Synthroid] 50 mcg PO DAILY@0730 Nystatin [Nystop] 0 gm TOP TID 08/07/17 09:43 Convert IV to Saline Lock [OM.PC] Routine 08/07/17 10:00 Enoxaparin [Lovenox] 120 mg SUBCUT Q12H 08/07/17 13:00 Warfarin [Coumadin] 10 mg PO ONETIME ONE 08/07/17 21:00 Levofloxacin/Dextrose 5%-Water [Levaquin in D5W 750 MG/150 ML] 750 mg Premix Bag 1 bag IV Q24H 08/08/17 05:00 BASIC METABOLIC PANEL,BMP [CHEM] Timed CBC WITH AUTO DIFF [HEME] Timed INR,PT,PROTHROMBIN TIME [COAG] Timed 08/08/17 07:30 GLUCOSE POC LAB TO COLLECT [POC] QIDACANDBED 08/08/17 11:30 GLUCOSE POC LAB TO COLLECT [POC] QIDACANDBED 08/08/17 16:30 GLUCOSE POC LAB TO COLLECT [POC] QIDACANDBED 08/08/17 21:00 GLUCOSE POC LAB TO COLLECT [POC] QIDACANDBED 08/09/17 07:30 GLUCOSE POC LAB TO COLLECT [POC] QIDACANDBED 08/09/17 11:30 GLUCOSE POC LAB TO COLLECT [POC] QIDACANDBED 08/09/17 16:30 GLUCOSE POC LAB TO COLLECT [POC] QIDACANDBED 08/09/17 21:00 GLUCOSE POC LAB TO COLLECT [POC] QIDACANDBED 08/10/17 07:30 GLUCOSE POC LAB TO COLLECT [POC] QIDACANDBED 08/10/17 11:30 GLUCOSE POC LAB TO COLLECT [POC] QIDACANDBED 08/10/17 16:30 GLUCOSE POC LAB TO COLLECT [POC] QIDACANDBED 08/10/17 21:00 GLUCOSE POC LAB TO COLLECT [POC] QIDACANDBED 08/11/17 07:30 GLUCOSE POC LAB TO COLLECT [POC] QIDACANDBED 08/11/17 11:30 GLUCOSE POC LAB TO COLLECT [POC] QIDACANDBED 08/11/17 16:30 GLUCOSE POC LAB TO COLLECT [POC] QIDACANDBED - Plan Plan:: ASSESSMENT AND PLAN FEVER-specific source not yet identified, skin reviewed again today showing no obvious lesions or infection other than the yeast dermatitis in his groin. Follow-up chest x-ray after hydration showed no obvious infiltrate. White blood cell count remains normal and his lactic acid level has normalized. May represent an underlying viral infection, given significant myalgias that he experienced with onset of the temperature elevation. 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 MAINTENANCE ISSUES -DVT prophylaxis; current therapy with Lovenox should provide adequate DVT prophylaxis -GI prophylaxis; not indicated -Mcdonald catheter; not indicated -Nutrition;Consistent carb diet -Nicotine dependence; not required CODE STATUS- FULL CODE ADMISSION STATUS-patient will be admitted to inpatient status, expect at least a 2 night hospital stay for evaluation and management of problems as outlined above. At the time of this admission I do not reasonably expected evaluation and management of this problem will require more than a 96 hour hospital stay. DISPOSITION-anticipate discharge to home after the hospital stay. PRIMARY CARE PROVIDER- Dr. Thomas
[2017-08-07] MEDS: Enoxaparin 120 MG/0.8 ML Syringe SUBCUT SCH ×2 (10:17→21:26)
[2017-08-07] MEDS: Oseltamivir 30 MG Cap PO SCH ×2 (10:20→21:26)
[2017-08-07] MEDS ORDERED: Warfarin 5 MG Tab PO ONE (13:00)
[2017-08-07] MEDS ORDERED: Warfarin 2.5 MG Tab PO SCH (13:00)
[2017-08-07] MEDS: Dexamethasone/Neomycin/Polymyxin B Ophth Susp 5 ML Bottle EYEBOTH SCH (14:08)
[2017-08-07] MEDS: Insulin Detemir 100 Units/ML 3 ML Pen SUBCUT SCH (21:23)
[2017-08-07] MEDS: Levofloxacin/Dextrose 5%-Water 750 MG in Premix Bag 1 BAG IV SCH (21:26)
[2017-08-07] MEDS: Nortriptyline 25 MG Cap PO SCH (21:27)
[2017-08-08] MEDS: Insulin Aspart 100 Units/ML 3 ML Pen SUBCUT SCH ×4 (08:19→21:32)
[2017-08-08] MEDS: Ondansetron 4 MG/2 ML SDV IV PRN (08:32)
[2017-08-08] MEDS: Levothyroxine 50 MCG Tab PO SCH (08:41)
--- NOTE | 2017-08-08 08:54 | CR ---
Chest 1V Frontal HISTORY: sob COMPARISON: 01/31/2017 FINDINGS: Portable chest, 1437 hours. Lungs appear clear and normally aerated. Cardiomediastinal silhouette is within normal limits. No vas cular redistribution or pleural fluid can be seen. Bony structures and soft tissues are unremarkable. IMPRESSION: No acute chest abnormality is identified.
[2017-08-08] MEDS: Fluticasone Propionate Nasal Spray 16 GM Bottle NASBOTH SCH (09:00)
[2017-08-08] MEDS: Gabapentin 300 MG Cap PO SCH ×3 (09:00→21:36)
[2017-08-08] MEDS: Allopurinol 100 MG Tab PO SCH (09:00)
[2017-08-08] MEDS: Oseltamivir 30 MG Cap PO SCH ×2 (09:00→21:41)
[2017-08-08] MEDS: Furosemide 20 MG Tab PO SCH (09:00)
[2017-08-08] MEDS: Aspirin 81 MG Tab.EC PO SCH (09:01)
[2017-08-08] MEDS: Nystatin Topical Powder 15 GM Bottle TOP SCH ×3 (09:01→21:37)
[2017-08-08] MEDS: Enoxaparin 120 MG/0.8 ML Syringe SUBCUT SCH ×2 (09:02→21:42)
--- NOTE | 2017-08-08 09:17 | CR ---
Chest 1V Frontal HISTORY: fever, followup after hydration COMPARISON: 08/06/2017 FINDINGS: Lungs appear clear and normally aerated. Cardiomediastinal silhouette is within normal limits. No vas cular redistribution or pleural fluid can be seen. Bony structures and soft tissues are unremarkable. IMPRESSION: No acute chest abnormality or significant interval change is identified.
--- NOTE | 2017-08-08 10:06 | PCM.PN ---
- General Info Date of Service: 08/08/17 Functional Status: Reports: Pain Controlled, Tolerating Diet - Review of Systems General: Reports: Weakness Pulmonary: Denies: Shortness of Breath Systems Review Comment:: No acute events overnight. No significant complaints of cough or shortness of breath. He has not had any fevers. He has not required supplemental oxygen. He is a little weak but otherwise improving. Mcdonald catheter was placed yesterday afternoon for urinary retention. He does have a history of radiation for prostate cancer. - Patient Data Vitals - Most Recent: Last Vital Signs Temp 36.6 C 08/08/17 10:03 Pulse 67 08/08/17 10:03 Resp 18 08/08/17 10:03 BP 139/69 08/08/17 10:03 Pulse Ox 96 08/08/17 10:03 Weight - Most Recent: 127.868 kg I&O - Last 24 Hours: Intake & Output 08/07/17 08/08/17 08/08/17 22:59 06:59 14:59 Intake Total 1670 480 Output Total 1200 1225 75 Balance 470 -745 -75 Lab Results Last 24 Hours: Laboratory Results - last 24 hr 08/08/17 08/08/17 08/08/17 Range/Units 05:50 05:50 05:50 WBC 5.0 (4.5-11.0) K/uL RBC 5.27 (4.30-5.90) M/uL Hgb 16.4 H (12.0-15.0) g/dL Hct 47.1 (40.0-54.0) % MCV 89 (80-98) fL MCH 31 (27-31) pg MCHC 35 (32-36) % Plt Count 132 L (150-400) K/uL Neut % (Auto) 67 H (36-66) % Lymph % (Auto) 15 L (24-44) % [place] % (Auto) 15 H (2-6) % Eos % (Auto) 2 (2-4) % Baso % (Auto) 1 (0-1) % PT 12.9 H (9.5-12.0) sec INR 1.20 (0.80-1.20) Sodium 136 L (140-148) mmol/L Potassium 3.4 L (3.6-5.2) mmol/L Chloride 100 (100-108) mmol/L Carbon Dioxide 28 (21-32) mmol/L Anion Gap 11.4 (5.0-14.0) mmol/L BUN 19 H (7-18) mg/dL Creatinine 1.4 H (0.8-1.3) mg/dL Est Cr Clr Drug Dosing 48.56 mL/min Estimated GFR (MDRD) 49 L (>60) Glucose 153 H (74-106) mg/dL Calcium 8.3 L (8.5-10.1) mg/dL Ahmet Results Last 24 Hours: Microbiology 08/06/17 15:35 Aerobic Blood Culture - Preliminary Blood - Arm, Right NO GROWTH AFTER 1 DAY Anaerobic Blood Culture - Preliminary NO GROWTH AFTER 1 DAY 08/06/17 15:25 Aerobic Blood Culture - Preliminary Blood - Arm, Right NO GROWTH AFTER 1 DAY Anaerobic Blood Culture - Preliminary NO GROWTH AFTER 1 DAY Med Orders - Current: Current Medications Acetaminophen (Tylenol) 650 mg PO Q4H PRN PRN Reason: Pain (Mild 1-3)/fever Last Admin: 08/07/17 16:54 Dose: 650 mg Albuterol (Proventil Neb Soln) 2.5 mg NEB Q4H PRN PRN Reason: Shortness Of Breath/wheezing Albuterol (Ventolin Hfa) 0 gm INH Q4H PRN PRN Reason: Wheezing Albuterol/Ipratropium (Duoneb 3.0-0.5 Mg/3 Ml) 3 ml NEB QID PRN PRN Reason: Shortness Of Breath/wheezing Allopurinol (Zyloprim) 100 mg PO DAILY [facility] Last Admin: 08/08/17 09:00 Dose: 100 mg Aspirin (Halfprin) 81 mg PO DAILY [facility] Last Admin: 08/08/17 09:01 Dose: 81 mg Dextrose (Glutose 15) 15 gm PO ONETIME PRN PRN Reason: Hypoglycemia Dextrose/Water (Dextrose 50% In Water) 50 ml IV ONETIME PRN PRN Reason: Hypoglycemia Enoxaparin Sodium (Lovenox) 120 mg SUBCUT Q12H [facility] Last Admin: 08/08/17 09:02 Dose: 120 mg Fluticasone Propionate (Flonase) 0 gm NASBOTH DAILY [facility] Last Admin: 08/08/17 09:00 Dose: 2 spray Furosemide (Lasix) 60 mg PO DAILY [facility] Last Admin: 08/08/17 09:00 Dose: 60 mg Gabapentin (Neurontin) 300 mg PO TID [facility] Last Admin: 08/08/17 09:00 Dose: 300 mg Levofloxacin/Dextrose 750 mg/ (Premix) 150 mls @ 100 mls/hr IV Q24H [facility] Last Admin: 08/07/17 21:26 Dose: 100 mls/hr Insulin Aspart (Novolog) 10 unit SUBCUT TIDMEALS PRN PRN Reason: Blood Glucose Insulin Aspart (Novolog) 0 unit SUBCUT QIDACANDBED [facility]; Protocol Last Admin: 08/08/17 08:19 Dose: 1 units Insulin Detemir (Levemir) 32 unit SUBCUT BEDTIME [facility] Last Admin: 08/07/17 21:23 Dose: 32 units Levothyroxine Sodium (Synthroid) 50 mcg PO DAILY@0730 [facility] Last Admin: 08/08/17 08:41 Dose: 50 mcg Lovastatin (Mevacor) 80 mg PO BEDTIME [facility] Last Admin: 08/07/17 21:27 Dose: 80 mg Magnesium Hydroxide (Milk Of Magnesia) 30 ml PO Q12H PRN PRN Reason: Constipation Nitroglycerin (Nitrostat) 0.4 mg SL ASDIRECTED PRN PRN Reason: Chest Pain Nortriptyline HCl (Nortriptyline) 50 mg PO BEDTIME [facility] Last Admin: 08/07/17 21:27 Dose: 50 mg Nystatin (Nystop) 0 gm TOP TID [facility] Last Admin: 08/08/17 09:01 Dose: 1 applic Ondansetron HCl (Zofran) 4 mg IV Q4H PRN PRN Reason: Nausea/Vomiting Last Admin: 08/08/17 08:32 Dose: 4 mg Oseltamivir Phosphate (Tamiflu) 30 mg PO BID [facility] Last Admin: 08/08/17 09:00 Dose: 30 mg Oxycodone HCl (Oxycodone) 10 mg PO Q4H PRN PRN Reason: Pain (moderate 4-6) Last Admin: 08/07/17 21:30 Dose: 10 mg Polyethylene Glycol (Miralax) 17 gm PO DAILY PRN PRN Reason: Constipation Potassium Chloride (Klor-Con M20) 40 meq PO ONETIME ONE Stop: 08/08/17 10:04 Senna/Docusate Sodium (Senna Plus) 1 tab PO BID PRN PRN Reason: Constipation Sodium Chloride (Saline Flush) 10 ml FLUSH ASDIRECTED PRN PRN Reason: Keep Vein Open Discontinued Medications Albuterol (Ventolin Hfa) gm INH Q4H PRN PRN Reason: Wheezing Hydromorphone HCl (Dilaudid) 0.5 mg IVPUSH ONETIME ONE Stop: 08/06/17 17:03 Last Admin: 08/06/17 17:08 Dose: 0.5 mg Hydromorphone HCl (Dilaudid) 0.5 mg IVPUSH ONETIME ONE Stop: 08/06/17 23:14 Last Admin: 08/06/17 23:23 Dose: 0.5 mg Sodium Chloride (Normal Saline) 1,000 mls @ 400 mls/hr IV ASDIRECTED [facility] Last Admin: 08/06/17 14:41 Dose: 400 mls/hr Sodium Chloride (Normal Saline) 1,000 mls @ 999 mls/hr IV ASDIRECTED [facility] Last Admin: 08/06/17 17:11 Dose: 999 mls/hr Sodium Chloride (Normal Saline) 1,000 mls @ 150 mls/hr IV ASDIRECTED [facility] Levofloxacin/Dextrose 750 mg/ (Premix) 150 mls @ 100 mls/hr IV Q24H [facility] Last Admin: 08/06/17 20:24 Dose: 100 mls/hr Sodium Chloride (Normal Saline) 1,000 mls @ 125 mls/hr IV ASDIRECTED [facility] Last Admin: 08/07/17 05:44 Dose: 125 mls/hr Neomycin/Polymyxin/Dexamethasone (Maxitrol Ophth Susp) 0 ml EYEBOTH BID [facility] Last Admin: 08/07/17 14:08 Dose: Not Given Nystatin (Nystop) 0 gm TOP TID [facility] Last Admin: 08/06/17 21:21 Dose: Not Given Warfarin Sodium (Coumadin) 7.5 mg PO DAILY@1300 [facility] Warfarin Sodium (Coumadin) 10 mg PO ONETIME ONE Stop: 08/07/17 13:01 Last Admin: 08/07/17 12:12 Dose: 10 mg - Exam Quality Assessment: No: Supplemental Oxygen General: Alert, Oriented, Cooperative, No Acute Distress Neck: Supple Lungs: Clear to Auscultation, Normal Respiratory Effort Cardiovascular: Regular Rate, Regular Rhythm GI/Abdominal Exam: Soft, No Distention Extremities: Pedal Edema Psy/Mental Status: Alert, Normal Affect - Problem List Review Problem List Initiated/Reviewed/Updated: Yes - My Orders Last 24 Hours: My Active Orders 08/08/17 10:03 Potassium Chloride [Klor-Con M20] 40 meq PO ONETIME ONE 08/09/17 05:00 BASIC METABOLIC PANEL,BMP [CHEM] Timed CBC W/O DIFF,HEMOGRAM [HEME] Timed (1) INR,PT,PROTHROMBIN TIME [COAG] Timed - Plan Plan:: ASSESSMENT AND PLAN FEVER - specific source not yet identified, skin reviewed again today showing no obvious lesions or infection other than the yeast dermatitis in his groin. Follow-up chest x-ray after hydration showed no obvious infiltrate though subtle left lower lobe pneumonia could be considered. He was started on Tamiflu yesterday, influenza antigens were negative. 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 -Mcdonald catheter removal in the morning TYPE 2 DIABETES MELLITUS - blood sugars have been improving throughout the hospital stay. -Continue outpatient dosing of insulin -4 times a day glucometers -Low-dose sliding scale NovoLog CHRONIC KIDNEY DISEASE STAGE III - kidney function stable. -closely monitor urine output and renal function COPD stable with no evidence for acute exacerbation. - -Continue outpatient medical regimen HISTORY OF DEEP VEIN THROMBOSIS AND PULMONARY EMBOLISM - on long-term oral anticoagulation with warfarin, INR this morning is subtherapeutic -Lovenox 120 mg subcutaneous every 12 hours until INR is therapeutic -Warfarin 10 mg by mouth today -INR in a.m. MAINTENANCE ISSUES -DVT prophylaxis; current therapy with enoxaparin should provide adequate DVT prophylaxis -GI prophylaxis; not indicated -Mcdonald catheter; not indicated -Nutrition; Consistent carb diet DISPOSITION - anticipate discharge to home after the hospital stay. Carlos Morales MD
[2017-08-08] MEDS ORDERED: Potassium Chloride 20 MEQ Tab.ER PO ONE (10:30)
[2017-08-08] MEDS ORDERED: Warfarin 5 MG Tab PO ONE (13:00)
[2017-08-08] MEDS: Levofloxacin/Dextrose 5%-Water 750 MG in Premix Bag 1 BAG IV SCH (21:32)
[2017-08-08] MEDS: Insulin Detemir 100 Units/ML 3 ML Pen SUBCUT SCH (21:33)
[2017-08-08] MEDS: Nortriptyline 25 MG Cap PO SCH (21:36)
[2017-08-09] MEDS: Levothyroxine 50 MCG Tab PO SCH (08:16)
[2017-08-09] MEDS: Insulin Aspart 100 Units/ML 3 ML Pen SUBCUT SCH ×2 (08:17→12:13)
[2017-08-09] MEDS ORDERED: Potassium Chloride 20 MEQ Tab.ER PO ONE (09:00)
[2017-08-09] MEDS: Gabapentin 300 MG Cap PO SCH ×2 (09:05→15:48)
[2017-08-09] MEDS: Oseltamivir 30 MG Cap PO SCH (09:05)
[2017-08-09] MEDS: Aspirin 81 MG Tab.EC PO SCH (09:06)
[2017-08-09] MEDS: Furosemide 20 MG Tab PO SCH (09:06)
[2017-08-09] MEDS: Allopurinol 100 MG Tab PO SCH (09:06)
[2017-08-09] MEDS: Enoxaparin 120 MG/0.8 ML Syringe SUBCUT SCH (09:07)
[2017-08-09] MEDS: Nystatin Topical Powder 15 GM Bottle TOP SCH ×2 (09:07→15:48)
[2017-08-09] MEDS: Fluticasone Propionate Nasal Spray 16 GM Bottle NASBOTH SCH (10:05)
[2017-08-09 11:28] VITALS: BP 100/57
--- NOTE | 2017-08-09 12:41 | PCM.DCSUM1 ---
Discharge Summary - Hospital Course Brief History: 76-year-old male with history of insulin-dependent diabetes mellitus, prostate cancer and obesity who presented with fever and shortness of breath. He was admitted for management of probable left lower lobe pneumonia. - Discharge Data Discharge Date: 08/09/17 Discharge Disposition: Home, Self-Care 01 Condition: Good - Discharge Diagnosis/Problem(s) (1) Left lower lobe pneumonia SNOMED Code(s): 618595425 ICD Code: J18.1 - LOBAR PNEUMONIA, UNSPECIFIED ORGANISM Status: Suspected Current Visit: Yes Qualifiers: Pneumonia type: due to unspecified organism Qualified Code(s): J18.1 - Lobar pneumonia, unspecified organism (2) Type 2 diabetes mellitus SNOMED Code(s): 44108487 ICD Code: E11.9 - TYPE 2 DIABETES MELLITUS WITHOUT COMPLICATIONS Status: Chronic Current Visit: No Qualifiers: Diabetes mellitus buttermaker continuous churn insulin use: with halfway use Diabetes mellitus complication status: with neurologic complications Diabetes mellitus complication detail: with polyneuropathy Qualified Code(s): E11.42 - Type 2 diabetes mellitus with diabetic polyneuropathy; Z79.4 - medical terminologist (current) use of insulin (3) Chronic renal insufficiency SNOMED Code(s): 397042086 ICD Code: N18.9 - CHRONIC KIDNEY DISEASE, UNSPECIFIED Status: Chronic Current Visit: No Qualifiers: Chronic kidney disease stage: stage 3 (moderate) Qualified Code(s): N18.3 - Chronic kidney disease, stage 3 (moderate) (4) History of atrial fibrillation SNOMED Code(s): 819555812 ICD Code: Z86.79 - PERSONAL HISTORY OF OTHER DISEASES OF THE CIRCULATORY SYSTEM Status: Chronic Current Visit: No - Patient Summary/Data Consults: Consultations 08/09/17 06:55 Consult to Physical Therapy [PT Evaluation and Treatment] [CONS] Routine Please Evaluate and Treat. PT Reason for Consult: weakness This query below is only for informational purposes and is not editable. Admission Diagnosis/Problem: Fever Hospital Course: Ranjan presented to the emergency room with acute onset of fever and myalgias. Workup in the emergency room revealed a fever and mildly elevated lactic acid but no obvious source of infection was identified. Respiratory source was suspected though chest x-ray did not confirm infiltrate. He was empirically started on levofloxacin and provided IV fluids. He was admitted to the hospital for further management. His lactic acid level did improve with IV fluid administration. The lactic acid elevation was thought to be related to dehydration rather than sepsis given no other abnormal vital signs. A chest x- ray obtained the morning after admission following hydration I thought was suggestive of a subtle left lower lung infiltrate. Over the next couple of days he had improvement in his myalgias and improvement and then resolution of his fevers. Tamiflu was added to his treatment regimen the day after admission after he spiked another fever. Influenza antigen testing was negative. Over the next couple of days he had slow but steady improvement. He has been afebrile for more than 24 hours. I suspect the fever and illness was related to a left lower lobe pneumonia. I have chosen to discontinue his Tamiflu. He feels like he is nearly back to his baseline. His diabetes has been well-controlled. He was not interested in home health nursing at the time of discharge. He will be discharged home with his . He will need 3 more days of levofloxacin. He would benefit from early follow-up as well as a Coumadin clinic visit later this week. - Patient Instructions Diet: Diabetic Diet Activity: As Tolerated Showering/Bathing: May Shower Notify Provider of: Fever, Increased Pain, Nausea and/or Vomiting Other/Special Instructions: 1. You were in the hospital for management of a suspected left lower lung pneumonia. Your condition has been improving with antibiotic therapy. I do recommend 3 additional doses of levofloxacin. You should take one tablet each night at bedtime. Your next dose is due tonight. 2. Regarding your Coumadin dosing, you should take 10 mg today and tomorrow and then resume your previous home dosing. I would recommend that you follow-up with the Coumadin clinic at the end of the week to check your INR. 3. Please continue your other medications as previously prescribed. 4. Seek medical attention if you develop fever greater than 101, you have severe shortness of breath or if you develop chest pain/pressure. - Discharge Plan Prescriptions/Med Rec: Levofloxacin 750 mg PO BEDTIME #3 tablet Home Medications: Home Meds Albuterol Sulfate [Proair Hfa] 2 puff IH Q6HR PRN 05/21/14 [History] Allopurinol [Zyloprim] 100 mg PO DAILY 05/21/14 [History] Betamethasone Dipropionate [Diprolene 0.05% Oint] 1 applic TOP BID 05/21/14 [ History] Furosemide 60 mg PO DAILY 05/21/14 [History] Insulin Aspart [NovoLOG] 10 unit SQ TIDMEALS PRN 05/21/14 [History] Insulin Detemir [Levemir Flextouch] 32 unit SQ BEDTIME 05/21/14 [History] Levothyroxine [Synthroid] 50 mcg PO QAM 05/21/14 [History] Lovastatin 80 mg PO BEDTIME 05/21/14 [History] Nitroglycerin [Nitrostat] 0.4 mg SL ASDIRECTED PRN 05/21/14 [History] Warfarin Sodium 7.5 mg PO ASDIRECTED 05/21/14 [History] Aspirin [Low Dose Aspirin EC] 81 mg PO DAILY 05/15/15 [History] Fluticasone Propionate [Flonase] 2 sprays IN DAILY 05/15/15 [History] Mupirocin [Bactroban] 22 gm TP TID 05/15/15 [History] Cholecalciferol (Vitamin D3) [Vitamin D3] 2,000 units PO DAILY 12/05/15 [History ] Gabapentin 1 tab PO TID 10/25/16 [History] Cyanocobalamin (Vitamin B-12) [B-12] 1,000 mcg PO DAILY 08/04/17 [History] Nortriptyline 50 mg PO BEDTIME 08/04/17 [History] Levofloxacin 750 mg PO BEDTIME #3 tablet 08/09/17 [Rx] Patient Handouts: Levofloxacin tablets, Community-Acquired Pneumonia, Adult Referrals: Jacob Thomas MD [Primary Care Provider] - (1-2 weeks - follow-up hospital stay for suspected left lower lung pneumonia) - Discharge Summary/Plan Comment DC Time >30 min.: No (25) - Patient Data Vitals - Most Recent: Last Vital Signs Temp 36.5 C 08/09/17 11:27 Pulse 62 08/09/17 11:27 Resp 17 08/09/17 11:27 BP 100/57 L 08/09/17 11:27 Pulse Ox 96 08/09/17 11:27 Weight - Most Recent: 131.684 kg I&O - Last 24 hours: Intake & Output 08/08/17 08/09/17 08/09/17 22:59 06:59 14:59 Intake Total 1040 400 240 Output Total 1200 1300 525 Balance -140 -900 -332 Lab Results - Last 24 hrs: Laboratory Results - last 24 hr 08/09/17 08/09/17 08/09/17 Range/Units 05:00 05:00 05:00 WBC 4.8 (4.5-11.0) K/uL RBC 5.13 (4.30-5.90) M/uL Hgb 15.9 H (12.0-15.0) g/dL Hct 45.2 (40.0-54.0) % MCV 88 (80-98) fL MCH 31 (27-31) pg MCHC 35 (32-36) % Plt Count 141 L (150-400) K/uL PT 13.5 H (9.5-12.0) sec INR 1.25 H (0.80-1.20) Sodium 135 L (140-148) mmol/L Potassium 3.3 L (3.6-5.2) mmol/L Chloride 99 L (100-108) mmol/L Carbon Dioxide 29 (21-32) mmol/L Anion Gap 10.3 (5.0-14.0) mmol/L BUN 18 (7-18) mg/dL Creatinine 1.3 (0.8-1.3) mg/dL Est Cr Clr Drug Dosing 52.08 mL/min Estimated GFR (MDRD) 54 L (>60) Glucose 152 H (74-106) mg/dL Calcium 8.5 (8.5-10.1) mg/dL [facility] Results - Last 24 hrs: Microbiology 08/06/17 15:35 Aerobic Blood Culture - Preliminary Blood - Arm, Right NO GROWTH AFTER 2 DAYS Anaerobic Blood Culture - Preliminary NO GROWTH AFTER 2 DAYS 08/06/17 15:25 Aerobic Blood Culture - Preliminary Blood - Arm, Right NO GROWTH AFTER 2 DAYS Anaerobic Blood Culture - Preliminary NO GROWTH AFTER 2 DAYS Med Orders - Current: Current Medications Acetaminophen (Tylenol) 650 mg PO Q4H PRN PRN Reason: Pain (Mild 1-3)/fever Last Admin: 08/07/17 16:54 Dose: 650 mg Albuterol (Proventil Neb Soln) 2.5 mg NEB Q4H PRN PRN Reason: Shortness Of Breath/wheezing Albuterol (Ventolin Hfa) 0 gm INH Q4H PRN PRN Reason: Wheezing Albuterol/Ipratropium (Duoneb 3.0-0.5 Mg/3 Ml) 3 ml NEB QID PRN PRN Reason: Shortness Of Breath/wheezing Allopurinol (Zyloprim) 100 mg PO DAILY [facility] Last Admin: 08/09/17 09:06 Dose: 100 mg Aspirin (Halfprin) 81 mg PO DAILY [facility] Last Admin: 08/09/17 09:06 Dose: 81 mg Dextrose (Glutose 15) 15 gm PO ONETIME PRN PRN Reason: Hypoglycemia Dextrose/Water (Dextrose 50% In Water) 50 ml IV ONETIME PRN PRN Reason: Hypoglycemia Enoxaparin Sodium (Lovenox) 120 mg SUBCUT Q12H [facility] Last Admin: 08/09/17 09:07 Dose: 120 mg Fluticasone Propionate (Flonase) 0 gm NASBOTH DAILY [facility] Last Admin: 08/09/17 10:05 Dose: Not Given Furosemide (Lasix) 60 mg PO DAILY [facility] Last Admin: 08/09/17 09:06 Dose: 60 mg Gabapentin (Neurontin) 300 mg PO TID [facility] Last Admin: 08/09/17 09:05 Dose: 300 mg Levofloxacin/Dextrose 750 mg/ (Premix) 150 mls @ 100 mls/hr IV Q24H [facility] Last Admin: 08/08/17 21:32 Dose: 100 mls/hr Insulin Aspart (Novolog) 10 unit SUBCUT TIDMEALS PRN PRN Reason: Blood Glucose Insulin Aspart (Novolog) 0 unit SUBCUT QIDACANDBED [facility]; Protocol Last Admin: 08/09/17 12:13 Dose: 2 units Insulin Detemir (Levemir) 32 unit SUBCUT BEDTIME [facility] Last Admin: 08/08/17 21:33 Dose: 32 units Levothyroxine Sodium (Synthroid) 50 mcg PO DAILY@0730 [facility] Last Admin: 08/09/17 08:16 Dose: 50 mcg Lovastatin (Mevacor) 80 mg PO BEDTIME [facility] Last Admin: 08/08/17 21:35 Dose: 80 mg Magnesium Hydroxide (Milk Of Magnesia) 30 ml PO Q12H PRN PRN Reason: Constipation Nitroglycerin (Nitrostat) 0.4 mg SL ASDIRECTED PRN PRN Reason: Chest Pain Nortriptyline HCl (Nortriptyline) 50 mg PO BEDTIME [facility] Last Admin: 08/08/17 21:36 Dose: 50 mg Nystatin (Nystop) 0 gm TOP TID [facility] Last Admin: 08/09/17 09:07 Dose: 1 applic Ondansetron HCl (Zofran) 4 mg IV Q4H PRN PRN Reason: Nausea/Vomiting Last Admin: 08/08/17 08:32 Dose: 4 mg Oseltamivir Phosphate (Tamiflu) 30 mg PO BID [facility] Last Admin: 08/09/17 09:05 Dose: 30 mg Oxycodone HCl (Oxycodone) 10 mg PO Q4H PRN PRN Reason: Pain (moderate 4-6) Last Admin: 08/07/17 21:30 Dose: 10 mg Polyethylene Glycol (Miralax) 17 gm PO DAILY PRN PRN Reason: Constipation Senna/Docusate Sodium (Senna Plus) 1 tab PO BID PRN PRN Reason: Constipation Last Admin: 08/09/17 10:01 Dose: 1 tab Sodium Chloride (Saline Flush) 10 ml FLUSH ASDIRECTED PRN PRN Reason: Keep Vein Open Warfarin Sodium (Coumadin) 10 mg PO ONETIME ONE Stop: 08/09/17 13:01 Last Admin: 08/09/17 12:12 Dose: 10 mg Discontinued Medications Albuterol (Ventolin Hfa) gm INH Q4H PRN PRN Reason: Wheezing Hydromorphone HCl (Dilaudid) 0.5 mg IVPUSH ONETIME ONE Stop: 08/06/17 17:03 Last Admin: 08/06/17 17:08 Dose: 0.5 mg Hydromorphone HCl (Dilaudid) 0.5 mg IVPUSH ONETIME ONE Stop: 08/06/17 23:14 Last Admin: 08/06/17 23:23 Dose: 0.5 mg Sodium Chloride (Normal Saline) 1,000 mls @ 400 mls/hr IV ASDIRECTED [facility] Last Admin: 08/06/17 14:41 Dose: 400 mls/hr Sodium Chloride (Normal Saline) 1,000 mls @ 999 mls/hr IV ASDIRECTED [facility] Last Admin: 08/06/17 17:11 Dose: 999 mls/hr Sodium Chloride (Normal Saline) 1,000 mls @ 150 mls/hr IV ASDIRECTED [facility] Levofloxacin/Dextrose 750 mg/ (Premix) 150 mls @ 100 mls/hr IV Q24H [facility] Last Admin: 08/06/17 20:24 Dose: 100 mls/hr Sodium Chloride (Normal Saline) 1,000 mls @ 125 mls/hr IV ASDIRECTED [facility] Last Admin: 08/07/17 05:44 Dose: 125 mls/hr Neomycin/Polymyxin/Dexamethasone (Maxitrol Ophth Susp) 0 ml EYEBOTH BID [facility] Last Admin: 08/07/17 14:08 Dose: Not Given Nystatin (Nystop) 0 gm TOP TID [facility] Last Admin: 08/06/17 21:21 Dose: Not Given Potassium Chloride (Klor-Con M20) 40 meq PO ONETIME ONE Stop: 08/08/17 10:31 Last Admin: 08/08/17 10:52 Dose: 40 meq Potassium Chloride (Klor-Con M20) 40 meq PO ONETIME ONE Stop: 08/09/17 09:01 Last Admin: 08/09/17 09:06 Dose: 40 meq Warfarin Sodium (Coumadin) 7.5 mg PO DAILY@1300 [facility] Warfarin Sodium (Coumadin) 10 mg PO ONETIME ONE Stop: 08/07/17 13:01 Last Admin: 08/07/17 12:12 Dose: 10 mg Warfarin Sodium (Coumadin) 10 mg PO ONETIME ONE Stop: 08/08/17 13:01 Last Admin: 08/08/17 12:19 Dose: 10 mg - Exam Quality Assessment: Denies: Supplemental Oxygen General: Reports: Alert, Oriented, Cooperative, No Acute Distress Neck: Reports: Supple Lungs: Reports: Normal Respiratory Effort Cardiovascular: Reports: Regular Rate, Regular Rhythm Extremities: Pedal Edema Psy/Mental Status: Reports: Alert, Normal Affect *Q Meaningful Use (DIS) - VTE *Q VTE Pharmacological Contraindications *Q: High INR Value
[2017-08-09] MEDS ORDERED: Warfarin 5 MG Tab PO ONE (13:00)
== END 2017-08-09 13:45 | disposition home or self-care (01) | DRG 194 ==
LOC: JP.ED 14:00 → JP.ICU 17:57 → JP.MS 08-08 10:40
PROVIDERS: ADMIT Hospitalist; ATTEND Internal Medicine
DX: R50.9 Fever, unspecified (principal); J18.1 Lobar pneumonia, unspecified organism; B37.89 Other sites of candidiasis; Z68.41 Body mass index [BMI] 40.0-44.9, adult; I12.9 Hypertensive chronic kidney disease with stage 1 through stage 4 chronic kidney disease, or unspecified chronic kidney disease; N18.3 Chronic kidney disease, stage 3 (moderate); J44.9 Chronic obstructive pulmonary disease, unspecified; E86.0 Dehydration; E11.42 Type 2 diabetes mellitus with diabetic polyneuropathy; I25.10 Atherosclerotic heart disease of native coronary artery without angina pectoris; I25.2 Old myocardial infarction; Z86.711 Personal history of pulmonary embolism; Z87.891 Personal history of nicotine dependence; R06.02 Shortness of breath; M79.1 Myalgia; E11.22 Type 2 diabetes mellitus with diabetic chronic kidney disease; Z86.718 Personal history of other venous thrombosis and embolism; Z79.4 Long term (current) use of insulin; Z79.01 Long term (current) use of anticoagulants; Z79.82 Long term (current) use of aspirin; Z86.79 Personal history of other diseases of the circulatory system; Z86.73 Personal history of transient ischemic attack (TIA), and cerebral infarction without residual deficits; Z85.46 Personal history of malignant neoplasm of prostate; Z95.5 Presence of coronary angioplasty implant and graft; H91.90 Unspecified hearing loss, unspecified ear; Z92.3 Personal history of irradiation; Z91.040 Latex allergy status; Z88.5 Allergy status to narcotic agent; Z88.7 Allergy status to serum and vaccine; Z88.8 Allergy status to other drugs, medicaments and biological substances; Z91.048 Other nonmedicinal substance allergy status; E66.9 Obesity, unspecified
CPT/HCPCS: 36415; 71045 ×2; 80053; 81001; 83605; 83690; 83880; 84484; 85025; 86140; 87040 ×2; 87804 ×2; 93005; 96360; 99285; J1170; J7040 ×2; 80048; 82962; 83735; 85027; 85610; 97162-GP; A9270-GY; J1650; J1956; J2405

== ENCOUNTER 2018-05-19 12:36 | Inpatient (IN) | payer MEDICARE, OTHER ==
[2018-05-19] MEDS ORDERED: Gabapentin 300 MG Cap PO ONE (15:46)
[2018-05-19] MEDS ORDERED: Acetaminophen 325 MG Tab, 50 Tab Bulk Bottle PO ONE (15:47)
[2018-05-19] MEDS ORDERED: Acetaminophen/oxyCODONE 325-10 MG Tab PO ONE (15:47)
[2018-05-19] MEDS ORDERED: Acetaminophen 325 MG Tab PO ONE (16:25)
[2018-05-19] MEDS: Nitroglycerin 0.4 MG Tab.SL SL PRN ×3 (17:22→17:37)
[2018-05-19] MEDS ORDERED: Oseltamivir 75 MG Cap PO ONE (17:55)
[2018-05-19] MEDS ORDERED: cefTRIAXone 1 GM in Sodium Chloride 0.9% 50 ML IV ONE (17:56)
[2018-05-19] MEDS ORDERED: Azithromycin 500 MG in Sodium Chloride 0.9% 250 ML IV ONE (17:57)
[2018-05-19] MEDS ORDERED: Sodium Chloride 0.9% 10 ML Syringe FLUSH PRN (18:03)
--- NOTE | 2018-05-19 18:17 | EDM.PDOC ---
<Aldo Souza - Last Filed: 05/19/18 18:11> ED HPI GENERAL MEDICAL PROBLEM - General Chief Complaint: General Stated Complaint: MEDICAL [facility] Time Seen by Provider: 05/19/18 14:25 Source of Information: Reports: Patient History Limitations: Reports: No Limitations - History of Present Illness INITIAL COMMENTS - FREE TEXT/NARRATIVE: This man came in by ambulance. He said that this morning his feet hurt really bad and he felt weak. He was stiff all over and couldn't get out of bed. He said he had just a little bit of chest pain this morning that just sort of came and went lasted just a couple minutes was mild. He said he gets that from time to time. He says his feet hurt very bad news asking for pain meds for that. Right Leg Pain Score (Numeric/FACES): 8 Chest Pain Score (Numeric/FACES): 8 - Related Data Allergies Allergy/AdvReac Type Severity Reaction Status Date / Time adhesive tape Allergy Rash Verified 01/31/17 07:04 glipizide Allergy Other Verified 01/31/17 07:04 Influenza Virus Vaccines Allergy Cannot Verified 01/31/17 07:04 Remember latex Allergy Rash Verified 01/31/17 07:04 metolazone Allergy Other Verified 01/31/17 07:04 morphine AdvReac Hallucinati Verified 01/31/17 07:04 ons Home Meds: Home Meds Albuterol Sulfate [Proair Hfa] 2 puff IH Q6HR PRN 05/21/14 [History] Allopurinol [Zyloprim] 100 mg PO DAILY 05/21/14 [History] Furosemide 60 mg PO DAILY 05/21/14 [History] Insulin Aspart [NovoLOG] 10 unit SQ TIDMEALS PRN 05/21/14 [History] Insulin Detemir [Levemir Flextouch] 32 unit SQ BEDTIME 05/21/14 [History] Levothyroxine [Synthroid] 50 mcg PO QAM 05/21/14 [History] Lovastatin 80 mg PO BEDTIME 05/21/14 [History] Nitroglycerin [Nitrostat] 0.4 mg SL ASDIRECTED PRN 05/21/14 [History] Warfarin Sodium 7.5 mg PO ASDIRECTED 05/21/14 [History] Aspirin [Low Dose Aspirin EC] 81 mg PO DAILY 05/15/15 [History] Fluticasone Propionate [Flonase] 2 sprays IN DAILY 05/15/15 [History] Cholecalciferol (Vitamin D3) [Vitamin D3] 2,000 units PO DAILY 12/05/15 [History ] Gabapentin 1 tab PO TID 10/25/16 [History] Nortriptyline 50 mg PO BEDTIME 08/04/17 [History] Potassium Chloride [Klor-Con] 20 meq PO DAILY 05/19/18 [History] Past Medical History HEENT History: Reports: Allergic Rhinitis, Hard of Hearing, Other (See Below) Other HEENT History: broken nose Cardiovascular History: Reports: Angina, Blood Clots/VTE/DVT, CAD, High Cholesterol, Hypertension, [place], Stents, Syncope Respiratory History: Reports: COPD, PE Gastrointestinal History: Reports: Chronic Constipation, Hemorrhoids, PUD Genitourinary History: Reports: Other (See Below) Other Genitourinary History: Chronic Kidney Disease stage 3 Musculoskeletal History: Reports: Back Pain, Chronic, Fracture, Neck Pain, Chronic, Other (See Below) Other Musculoskeletal History: fractured pelvis 01/2018 Neurological History: Reports: CVA, Neuropathy, Diabetic, Neuropathy, Peripheral , Other (See Below) Other Neuro History: fractured 8th vertebrae 01/2018 Psychiatric History: Reports: Depression Endocrine/Metabolic History: Reports: Diabetes, Type II, Hypothyroidism, IDDM, Obesity/BMI 30+ Hematologic History: Reports: Blood Transfusion(s) Oncologic (Cancer) History: Reports: Prostate Dermatologic History: Reports: Decubitus Ulcer, Other (See Below) Other Dermatologic History: rash - Infectious Disease History Infectious Disease History: Reports: Chicken Pox, Measles - Past Surgical History HEENT Surgical History: Reports: Cataract Surgery, Laser Surgery, Other (See Below) Cardiovascular Surgical History: Reports: Coronary Artery Stent Respiratory Surgical History: Reports: None GI Surgical History: Reports: Cholecystectomy, Colonoscopy, EGD Male Surgical History: Reports: None Endocrine Surgical History: Reports: None Neurological Surgical History: Reports: None Musculoskeletal Surgical History: Reports: Carpal Tunnel, Nerve Relocation, Shoulder Surgery Oncologic Surgical History: Reports: Other (See Below) Other Oncologic Surgeries/Procedures: Had radiation for prostate, so far in remission Dermatological Surgical History: Reports: Skin Biopsy Social & Family History - Family History Musculoskeletal: Reports: Arthritis Endocrine/Metabolic: Reports: Diabetes, type II Oncologic: Reports: Bone - Tobacco Use Smoking Status *Q: Former Smoker Years of Tobacco use: 50 Used Tobacco, but Quit: Yes Month/Year Tobacco Last Used: 2017 - Caffeine Use Caffeine Use: Reports: Coffee - Alcohol Use Days Per Week of Alcohol Use: 4 Number of Drinks Per Day: 1 Total Drinks Per Week: 4 - Recreational Drug Use Recreational Drug Use: No ED ROS GENERAL - Review of Systems Review Of Systems: See Below Constitutional: Reports: No Symptoms HEENT: Reports: No Symptoms Respiratory: Reports: No Symptoms Cardiovascular: Reports: Chest Pain (See history of present illness) Endocrine: Reports: No Symptoms GI/Abdominal: Reports: No Symptoms : Reports: No Symptoms Musculoskeletal: Reports: Foot Pain, Muscle Stiffness Skin: Reports: No Symptoms Neurological: Reports: No Symptoms ED EXAM, GENERAL - Physical Exam Exam: See Below Exam Limited By: No Limitations General Appearance: Alert, Mild Distress, Obese Eye Exam: Bilateral Eye: Normal Inspection Ears: Normal External Exam Nose: Normal Inspection Throat/Mouth: Normal Oropharynx Head: Atraumatic Neck: Normal Inspection Respiratory/Chest: Lungs Clear Cardiovascular: Regular Rate, Rhythm GI/Abdominal: Normal Bowel Sounds, Soft, Non-Tender Back Exam: Normal Inspection Extremities: Normal Inspection (No lesions to the feet.) Neurological: Alert, Oriented, CN II-XII Intact ( decreased sensation to the feet), Normal Cognition, Other (He does have) Psychiatric: Normal Affect Skin Exam: Warm, Dry Course - Vital Signs Last Recorded V/S: Last Vital Signs Temp 101.4 F H 05/19/18 17:53 Pulse 92 05/19/18 16:34 Resp 18 05/19/18 16:34 BP 117/60 05/19/18 17:37 Pulse Ox 97 05/19/18 16:34 - Orders/Labs/Meds Orders: Active Orders 24 hr Category Date Time Status Dietary Supplements [RC] BIDMEALS Care 05/19/18 17:57 Active EKG Documentation Completion [RC] ASDIRECTED Care 05/19/18 14:25 Active Ang Chest [CT] Stat Exams 05/19/18 18:03 Stop Req Chest 2V [CR] Urgent Exams 05/19/18 15:48 Taken CULTURE BLOOD [BC] Urgent Lab 05/19/18 18:00 Received CULTURE BLOOD [BC] Urgent Lab 05/19/18 18:00 Received UA W/MICROSCOPIC [URIN] Urgent Lab 05/19/18 15:48 Ordered Sodium Chloride 0.9% [Saline Flush] Med 05/19/18 18:03 Active 10 ml FLUSH ASDIRECTED PRN Blood Culture x2 Reflex Set [OM.PC] Urgent Oth 05/19/18 17:55 Ordered Saline Lock Insert [OM.PC] Urgent Oth 05/19/18 18:02 Ordered EKG 12 Lead [EK] Urgent Ther 05/19/18 14:25 Ordered Medication Orders Sodium Chloride (Saline Flush) 10 ml FLUSH ASDIRECTED PRN PRN Reason: Keep Vein Open Labs: Laboratory Tests 05/19/18 05/19/18 05/19/18 Range/Units 14:25 14:25 14:30 WBC 9.3 (4.5-11.0) K/uL RBC 5.75 (4.30-5.90) M/uL Hgb 17.8 H (12.0-15.0) g/dL Hct 51.5 (40.0-54.0) % MCV 90 (80-98) fL MCH 31 (27-31) pg MCHC 35 (32-36) % Plt Count 139 L (150-400) K/uL Neut % (Auto) 86 H (36-66) % Lymph % (Auto) 5 L (24-44) % [place] % (Auto) 8 H (2-6) % Eos % (Auto) 0 L (2-4) % Baso % (Auto) 0 (0-1) % PT 20.8 H (9.5-12.0) sec INR 1.96 H (0.80-1.20) Sodium 133 L (140-148) mmol/L Potassium 4.1 (3.6-5.2) mmol/L Chloride 93 L (100-108) mmol/L Carbon Dioxide 30 (21-32) mmol/L Anion Gap 14.1 H (5.0-14.0) mmol/L BUN 19 H (7-18) mg/dL Creatinine 1.4 H (0.8-1.3) mg/dL Est Cr Clr Drug Dosing 47.81 mL/min Estimated GFR (MDRD) 49 L (>60) Glucose 262 H (74-106) mg/dL Lactic Acid (0.4-2.0) mmol/L Calcium 9.2 (8.5-10.1) mg/dL Total Bilirubin 1.9 H (0.2-1.0) mg/dL AST 33 (15-37) U/L ALT 49 (12-78) U/L Alkaline Phosphatase 130 H (46-116) U/L Troponin I < 0.017 (0.000-0.056) ng/mL Total Protein 7.7 (6.4-8.2) g/dL Albumin 3.5 (3.4-5.0) g/dL Globulin 4.2 H (2.3-3.5) g/dL Albumin/Globulin Ratio 0.8 L (1.2-2.2) 05/19/18 Range/Units 18:14 WBC (4.5-11.0) K/uL RBC (4.30-5.90) M/uL Hgb (12.0-15.0) g/dL Hct (40.0-54.0) % MCV (80-98) fL MCH (27-31) pg MCHC (32-36) % Plt Count (150-400) K/uL Neut % (Auto) (36-66) % Lymph % (Auto) (24-44) % [place] % (Auto) (2-6) % Eos % (Auto) (2-4) % Baso % (Auto) (0-1) % PT (9.5-12.0) sec INR (0.80-1.20) Sodium (140-148) mmol/L Potassium (3.6-5.2) mmol/L Chloride (100-108) mmol/L Carbon Dioxide (21-32) mmol/L Anion Gap (5.0-14.0) mmol/L BUN (7-18) mg/dL Creatinine (0.8-1.3) mg/dL Est Cr Clr Drug Dosing mL/min Estimated GFR (MDRD) (>60) Glucose (74-106) mg/dL Lactic Acid 3.0 H (0.4-2.0) mmol/L Calcium (8.5-10.1) mg/dL Total Bilirubin (0.2-1.0) mg/dL AST (15-37) U/L ALT (12-78) U/L Alkaline Phosphatase (46-116) U/L Troponin I (0.000-0.056) ng/mL Total Protein (6.4-8.2) g/dL Albumin (3.4-5.0) g/dL Globulin (2.3-3.5) g/dL Albumin/Globulin Ratio (1.2-2.2) Meds: Medications Generic Name Dose Route Start Last Admin Trade Name Freq PRN Reason Stop Dose Admin Sodium Chloride 10 ml 05/19/18 18:03 Saline Flush FLUSH ASDIRECTED PRN Keep Vein Open Discontinued Medications Generic Name Dose Route Start Last Admin Trade Name Freq PRN Reason Stop Dose Admin Acetaminophen 325 mg 05/19/18 15:47 Tylenol Bulk Bottle PO 05/19/18 15:48 NOW ONE Acetaminophen 325 mg 05/19/18 16:25 05/19/18 16:33 Tylenol PO 05/19/18 16:26 325 mg NOW ONE Administration Gabapentin 300 mg 05/19/18 15:46 05/19/18 16:28 Neurontin PO 05/19/18 15:47 300 mg ONETIME ONE Administration Azithromycin 500 mg/ Sodium 250 mls @ 250 mls/hr 05/19/18 17:57 Chloride IV 05/19/18 18:56 ONETIME ONE Ceftriaxone Sodium 1 gm/ 50 mls @ 100 mls/hr 05/19/18 17:56 Sodium Chloride IV 05/19/18 18:25 ONETIME ONE Nitroglycerin 0.4 mg 05/19/18 17:07 05/19/18 17:37 Nitrostat SL 0.4 mg Q5M PRN Administration Chest Pain Oseltamivir Phosphate 75 mg 05/19/18 17:55 05/19/18 18:36 Tamiflu PO 05/19/18 17:56 75 mg ONETIME ONE Administration Oxycodone/Acetaminophen 1 tab 05/19/18 15:47 05/19/18 16:28 Percocet 325-10 Mg PO 05/19/18 15:48 1 tab ONETIME ONE Administration - Radiology Interpretation Free Text/Narrative:: Chest x-ray showed normal heart size no evidence of infiltrate. - Re-Assessments/Exams Free Text/Narrative Re-Assessment/Exam: 05/19/18 18:14 the patient had complained of some wild chest pain earlier so I did did an EKG on him which showed old inferior and anteroseptal infarcts. Sinus rhythm at 85. Similar to past EKGs. Patient was medicated for pain with gabapentin and oxycodone. 05/19/18 18:17 at about 1645 he began having some more chest pain and nurses did a second EKG on him which is unchanged. He received a nitroglycerin sublingual shortly after that but said that made no difference. I saw him right after that his pain seemed to be increasing 30 EKG was done which is also unchanged. He has developed a low-grade fever also. At this point influenza and his UA are pending. Blood cultures have been done. Antibiotics were initially ordered empirically but those been discontinued and try discuss this with the hospitalist Dr. Morales. Also I initially ordered a chest CT to rule out a pulmonary embolus. He's had pulmonary emboli before and is just slightly subtherapeutic on Coumadin. But will wait for the results of the other test before doing a CT. Case was discussed with both Dr. Morales and Dr. huerta. Dr. huerta is assuming care at this time. Departure - Departure Disposition: Refer to Observation Clinical Impression: Influenza B - Discharge Information Referrals: PCP,None [Primary Care Provider] - Forms: ED Department Discharge <Rafael Huerta - Last Filed: 05/19/18 18:39> Departure - Departure Time of Disposition: 18:38 Condition: Fair - Assessment/Plan Plan: Assessment Influenza B Plan admit to hospitalist service
[2018-05-19] MEDS ORDERED: Warfarin 5 MG Tab PO ONE (18:46)
--- NOTE | 2018-05-19 18:52 | PCM.HP ---
H&P History of Present Illness - General Date of Service: 05/19/18 Admit Problem/Dx: Admission Diagnosis/Problem Admission Diagnosis/Problem Influenza due to influenza virus, type B Source of Information: Patient, Family History Limitations: Reports: Altered Mental Status (Mild confusion) - History of Present Illness Initial Comments - Free Text/Narative: Ranjan presents to the emergency room today with a multitude of complaints. He reports that he got sick last night. History is kind of tangential and is a little bit difficult to follow. He reports that he suddenly became fatigued and weak. He's had increased pain in his right foot which is consistent with his chronic peripheral neuropathy pain. He says that when he gets sick his pain often gets worse. He has had some mild myalgias as well as a mild cough and mild runny nose. He's been having intermittent episodes of sharp stabbing chest pain better or worse with respiration. He has had these off and on for some time but they have been worse in the past 24 hours. These are mild to moderate pains. They're often better before he has a chance to take anything. No obvious trigger to make them worse. He reports a mild lower abdominal pain that comes and goes. No change in bowel or bladder habits from baseline. He's not sure if he's had any fevers. He has a fever at the time of the evaluation but does not feel the sensation of being warm. He seems to be a little bit confused and his confirms that he is not as sharp as usual today. Workup in the emergency room was fairly unrevealing with laboratory studies. Chest x-ray was clear. Influenza B was positive. He will be admitted for management with his confusion and weakness. Right Leg Pain Score (Numeric/FACES): 8 Chest Pain Score (Numeric/FACES): 8 - Related Data Allergies/Adverse Reactions: Allergies Allergy/AdvReac Type Severity Reaction Status Date / Time adhesive tape Allergy Rash Verified 01/31/17 07:04 glipizide Allergy Other Verified 01/31/17 07:04 Influenza Virus Vaccines Allergy Cannot Verified 01/31/17 07:04 Remember latex Allergy Rash Verified 01/31/17 07:04 metolazone Allergy Other Verified 01/31/17 07:04 morphine AdvReac Hallucinati Verified 01/31/17 07:04 ons Home Medications: Home Meds Albuterol Sulfate [Proair Hfa] 2 puff IH Q6HR PRN 05/21/14 [History] Allopurinol [Zyloprim] 100 mg PO DAILY 05/21/14 [History] Furosemide 60 mg PO DAILY 05/21/14 [History] Insulin Aspart [NovoLOG] 10 unit SQ TIDMEALS PRN 05/21/14 [History] Insulin Detemir [Levemir Flextouch] 32 unit SQ BEDTIME 05/21/14 [History] Levothyroxine [Synthroid] 50 mcg PO QAM 05/21/14 [History] Lovastatin 80 mg PO BEDTIME 05/21/14 [History] Nitroglycerin [Nitrostat] 0.4 mg SL ASDIRECTED PRN 05/21/14 [History] Warfarin Sodium 7.5 mg PO ASDIRECTED 05/21/14 [History] Aspirin [Low Dose Aspirin EC] 81 mg PO DAILY 05/15/15 [History] Fluticasone Propionate [Flonase] 2 sprays IN DAILY 05/15/15 [History] Cholecalciferol (Vitamin D3) [Vitamin D3] 2,000 units PO DAILY 12/05/15 [History ] Gabapentin 1 tab PO TID 10/25/16 [History] Nortriptyline 50 mg PO BEDTIME 08/04/17 [History] Potassium Chloride [Klor-Con] 20 meq PO DAILY 05/19/18 [History] Past Medical History HEENT History: Reports: Allergic Rhinitis, Hard of Hearing, Other (See Below) Other HEENT History: broken nose Cardiovascular History: Reports: Angina, Blood Clots/VTE/DVT, CAD, High Cholesterol, Hypertension, [place], Stents, Syncope Respiratory History: Reports: COPD, PE Gastrointestinal History: Reports: Chronic Constipation, Hemorrhoids, PUD Genitourinary History: Reports: Other (See Below) Other Genitourinary History: Chronic Kidney Disease stage 3 Musculoskeletal History: Reports: Back Pain, Chronic, Fracture, Neck Pain, Chronic, Other (See Below) Other Musculoskeletal History: fractured pelvis 01/2018 Neurological History: Reports: CVA, Neuropathy, Diabetic, Neuropathy, Peripheral , Other (See Below) Other Neuro History: fractured 8th vertebrae 01/2018 Psychiatric History: Reports: Depression Endocrine/Metabolic History: Reports: Diabetes, Type II, Hypothyroidism, IDDM, Obesity/BMI 30+ Hematologic History: Reports: Blood Transfusion(s) Oncologic (Cancer) History: Reports: Prostate Dermatologic History: Reports: Decubitus Ulcer, Other (See Below) Other Dermatologic History: rash - Infectious Disease History Infectious Disease History: Reports: Chicken Pox, Measles - Past Surgical History HEENT Surgical History: Reports: Cataract Surgery, Laser Surgery, Other (See Below) Cardiovascular Surgical History: Reports: Coronary Artery Stent Respiratory Surgical History: Reports: None GI Surgical History: Reports: Cholecystectomy, Colonoscopy, EGD Male Surgical History: Reports: None Endocrine Surgical History: Reports: None Neurological Surgical History: Reports: None Musculoskeletal Surgical History: Reports: Carpal Tunnel, Nerve Relocation, Shoulder Surgery Oncologic Surgical History: Reports: Other (See Below) Other Oncologic Surgeries/Procedures: Had radiation for prostate, so far in remission Dermatological Surgical History: Reports: Skin Biopsy Social & Family History - Family History Musculoskeletal: Reports: Arthritis Endocrine/Metabolic: Reports: Diabetes, type II Oncologic: Reports: Bone - Tobacco Use Smoking Status *Q: Former Smoker Years of Tobacco use: 50 Used Tobacco, but Quit: Yes Month/Year Tobacco Last Used: 2016 - Caffeine Use Caffeine Use: Reports: Coffee - Alcohol Use Days Per Week of Alcohol Use: 4 Number of Drinks Per Day: 1 Total Drinks Per Week: 4 - Recreational Drug Use Recreational Drug Use: No H&P Review of Systems - Review of Systems: Review Of Systems: See Below Free Text/Narrative: A complete 12 point review of systems was obtained. Pertinent positives and negatives are noted in the history of present illness. All other systems were reviewed and were negative except as noted. Exam - Exam Exam: See Below - Vital Signs Vital Signs: Last Vital Signs Temp 38.6 C H 05/19/18 17:53 Pulse 92 05/19/18 16:34 Resp 18 05/19/18 16:34 BP 117/60 05/19/18 17:37 Pulse Ox 97 05/19/18 16:34 Weight: 122.47 kg - Exam Quality Assessment: No: Supplemental Oxygen General: Alert, Cooperative, Mild Distress. No: Oriented HEENT: Conjunctiva Clear, Posterior Pharynx Clear. No: Mucosa Moist & Walker (dry ), Scleral Icterus Neck: Supple, Trachea Midline. No: Lymphadenopathy Lungs: Clear to Auscultation, Normal Respiratory Effort. No: Wheezing Cardiovascular: Regular Rate, Regular Rhythm GI/Abdominal Exam: Normal Bowel Sounds, Soft, No Distention, Tender (Mild suprapubic and periumbilical) Extremities: Pedal Edema (Mild edema of both feet). No: Increased Warmth Peripheral Pulses: 1+: Dorsalis Pedis (L), Dorsalis Pedis (R) Skin: Warm, Dry Neuro Extensive - Mental Status: Alert, Nl Response to Commands. No: Oriented x3 Neuro Extensive - Motor, Sensory, Reflexes: CN II-XII Intact. No: Abnormal Motor, Tremor Psychiatric: Alert, Normal Affect - Patient Data Lab Results Last 24 hrs: Laboratory Results - last 24 hr 05/19/18 05/19/18 05/19/18 Range/Units 14:25 14:25 14:30 WBC 9.3 (4.5-11.0) K/uL RBC 5.75 (4.30-5.90) M/uL Hgb 17.8 H (12.0-15.0) g/dL Hct 51.5 (40.0-54.0) % MCV 90 (80-98) fL MCH 31 (27-31) pg MCHC 35 (32-36) % Plt Count 139 L (150-400) K/uL Neut % (Auto) 86 H (36-66) % Lymph % (Auto) 5 L (24-44) % [place] % (Auto) 8 H (2-6) % Eos % (Auto) 0 L (2-4) % Baso % (Auto) 0 (0-1) % PT 20.8 H (9.5-12.0) sec INR 1.96 H (0.80-1.20) Sodium 133 L (140-148) mmol/L Potassium 4.1 (3.6-5.2) mmol/L Chloride 93 L (100-108) mmol/L Carbon Dioxide 30 (21-32) mmol/L Anion Gap 14.1 H (5.0-14.0) mmol/L BUN 19 H (7-18) mg/dL Creatinine 1.4 H (0.8-1.3) mg/dL Est Cr Clr Drug Dosing 47.81 mL/min Estimated GFR (MDRD) 49 L (>60) Glucose 262 H (74-106) mg/dL Lactic Acid (0.4-2.0) mmol/L Calcium 9.2 (8.5-10.1) mg/dL Total Bilirubin 1.9 H (0.2-1.0) mg/dL AST 33 (15-37) U/L ALT 49 (12-78) U/L Alkaline Phosphatase 130 H (46-116) U/L Troponin I < 0.017 (0.000-0.056) ng/mL Total Protein 7.7 (6.4-8.2) g/dL Albumin 3.5 (3.4-5.0) g/dL Globulin 4.2 H (2.3-3.5) g/dL Albumin/Globulin Ratio 0.8 L (1.2-2.2) 05/19/18 Range/Units 18:14 WBC (4.5-11.0) K/uL RBC (4.30-5.90) M/uL Hgb (12.0-15.0) g/dL Hct (40.0-54.0) % MCV (80-98) fL MCH (27-31) pg MCHC (32-36) % Plt Count (150-400) K/uL Neut % (Auto) (36-66) % Lymph % (Auto) (24-44) % [place] % (Auto) (2-6) % Eos % (Auto) (2-4) % Baso % (Auto) (0-1) % PT (9.5-12.0) sec INR (0.80-1.20) Sodium (140-148) mmol/L Potassium (3.6-5.2) mmol/L Chloride (100-108) mmol/L Carbon Dioxide (21-32) mmol/L Anion Gap (5.0-14.0) mmol/L BUN (7-18) mg/dL Creatinine (0.8-1.3) mg/dL Est Cr Clr Drug Dosing mL/min Estimated GFR (MDRD) (>60) Glucose (74-106) mg/dL Lactic Acid 3.0 H (0.4-2.0) mmol/L Calcium (8.5-10.1) mg/dL Total Bilirubin (0.2-1.0) mg/dL AST (15-37) U/L ALT (12-78) U/L Alkaline Phosphatase (46-116) U/L Troponin I (0.000-0.056) ng/mL Total Protein (6.4-8.2) g/dL Albumin (3.4-5.0) g/dL Globulin (2.3-3.5) g/dL Albumin/Globulin Ratio (1.2-2.2) Result Diagrams: 05/19/18 14:25 05/19/18 14:25 Ahmet Results Last 24 hrs: Microbiology 05/19/18 18:00 Influenza Type A Antigen Screen - Final Nasopharyngeal Swab NEGATIVE INFLUENZA A VIRUS AG Influenza Type B Antigen Screen - Final Positive Influenza B Ag Imaging Impressions Last 24 hrs: Chest x-ray - images personally reviewed - lungs are clear with no infiltrate, mass or effusion. Heart size is mildly enlarged. EKG INTERPRETATION EKG Date: 05/19/18 Rhythm: NSR Rate (Beats/Min): 82 [place]: Normal P-Wave: Present QRS: Normal ST-T: Normal QT: Normal Comparison: No Change *Q Meaningful Use (ADM) - VTE Risk Assess *Q Each Risk Factor Represents 1 Point: Swollen Legs, Current, Obesity ( BMI > 25 kg/m2), Serious lung disease including pneumonia, Abnormal Pulmonary Function ( COPD) Total Score 1 Point Risk Factors: 4 Each Risk Factor Represents 2 Points: None Total Score 2 Point Risk Factors: 0 Each Risk Factor Represents 3 Points: Age 75 Years or Greater, History of DVT/PE Total Score 3 Point Risk Factors: 6 Each Risk Factor Represents 5 Points: None Total Score 5 Point Risk Factors: 0 Venous Thromboembolism Risk Factor Score *Q: 10 - Problem List (1) Influenza B SNOMED Code(s): 22368905 ICD Code: J10.1 - FLU DUE TO OTH IDENT INFLUENZA VIRUS W OTH RESP MANIFEST Status: Acute Current Visit: Yes (2) Type 2 diabetes mellitus SNOMED Code(s): 12486875 ICD Code: E11.9 - TYPE 2 DIABETES MELLITUS WITHOUT COMPLICATIONS Status: Chronic Current Visit: No Qualifiers: Diabetes mellitus prison insulin use: with prison use Diabetes mellitus complication status: with neurologic complications Diabetes mellitus complication detail: with polyneuropathy Qualified Code(s): E11.42 - Type 2 diabetes mellitus with diabetic polyneuropathy; 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 of 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 (3) CKD (chronic kidney disease), stage III SNOMED Code(s): 281164146 ICD Code: N18.3 - CHRONIC KIDNEY DISEASE, STAGE 3 (MODERATE) Status: Chronic Current Visit: Yes Problem List Initiated/Reviewed/Updated: Yes Orders Last 24hrs: Active Orders 24 hr Category Date Time Status Patient Status Manage Transfer [TRANSFER] Routine ADT 05/19/18 18:34 Active Dietary Supplements [RC] BIDMEALS Care 05/19/18 17:57 Active EKG Documentation Completion [RC] ASDIRECTED Care 05/19/18 14:25 Active Ang Chest [CT] Stat Exams 05/19/18 18:03 Stop Req Chest 2V [CR] Urgent Exams 05/19/18 15:48 Taken CULTURE BLOOD [BC] Urgent Lab 05/19/18 18:00 Received CULTURE BLOOD [BC] Urgent Lab 05/19/18 18:00 Received UA W/MICROSCOPIC [URIN] Urgent Lab 05/19/18 15:48 Ordered Sodium Chloride 0.9% [Saline Flush] Med 05/19/18 18:03 Active 10 ml FLUSH ASDIRECTED PRN Warfarin [Coumadin] Med 05/19/18 18:46 Once 5 mg PO ONETIME ONE Blood Culture x2 Reflex Set [OM.PC] Urgent Oth 05/19/18 17:55 Ordered Saline Lock Insert [OM.PC] Urgent Oth 05/19/18 18:02 Ordered Resuscitation Status Routine Resus Stat 05/19/18 18:37 Ordered EKG 12 Lead [EK] Urgent Ther 05/19/18 14:25 Ordered Medication Orders Sodium Chloride (Saline Flush) 10 ml FLUSH ASDIRECTED PRN PRN Reason: Keep Vein Open Warfarin Sodium (Coumadin) 5 mg PO ONETIME ONE Stop: 05/19/18 18:47 Assessment/Plan Comment:: ASSESSMENT AND PLAN - Acute influenza B - symptoms currently include chest pain, cough, shortness of breath and runny nose. Patient is confused. He is weak and having increased neuropathic pain. He is not safe for outpatient management. He is borderline hypoxic but has not required supplemental oxygen as of yet. He has a history of COPD as discussed below but does not currently have any wheezing. 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 Diabetes has been fairly well controlled by history at home. Oral intake has been poor in the past 24 hours. -Continue long-acting insulin -Reduce short acting insulin 5 units with meals -Low-dose sliding scale insulin Stage III chronic kidney disease - Creatinine near baseline at this time. He is taking good oral intake at this time. COPD - No evidence for exacerbation at this time. He is not currently hypoxic. History of DVT and PE - INR is nearly therapeutic at 1.96. -5 mg of warfarin today and recheck INR in the morning Maintenance issues - - DVT prophylaxis - warfarin - GI prophylaxis - not indicated - Nutrition - diabetic diet - Mcdonald catheter - not indicated CODE STATUS - full code Admission justification - This patient will be admitted for inpatient services and is medically appropriate meeting medical necessity for inpatient admission as outlined in my documentation. I reasonably expect the patient will require inpatient services that span a period time over 2 midnights. I reasonably expect this patient to be discharged or transferred within 96 hours after admission to the [facility]. Disposition - I would anticipate discharged home with his after the hospital stay Primary care physician - Dr Rafia Morales M.D.
[2018-05-19] MEDS ORDERED: Polyethylene Glycol 3350 Powder 17 GM Packet PO PRN (19:41)
[2018-05-19] MEDS ORDERED: Albuterol/Ipratropium 3.0-0.5 MG/3 ML Neb Soln INH SCH (19:41)
[2018-05-19] MEDS ORDERED: Ondansetron 4 MG Tab.DIS PO PRN (19:41)
[2018-05-19] MEDS ORDERED: Benzonatate 100 MG Cap PO PRN (19:41)
[2018-05-19] MEDS ORDERED: guaiFENesin/Dextromethorphan 100-10 MG/5 ML Soln 10 ML Cup PO PRN (19:41)
[2018-05-19] MEDS ORDERED: Albuterol 0.083% 2.5 MG/3 ML Neb Soln NEB PRN (19:41)
[2018-05-19] MEDS ORDERED: NORTRIPTYLINE 50 MG PO SCH (21:00)
[2018-05-19] MEDS ORDERED: Insulin Glargine,Human Rec. Analog 100 Units/ML 3 ML Pen SUBCUT SCH ×2 (21:00)
[2018-05-19] MEDS: oxyCODONE 5 MG Tab PO PRN (21:42)
[2018-05-19] MEDS: Acetaminophen 325 MG Tab PO PRN (21:42)
[2018-05-19] MEDS: Gabapentin 300 MG Cap PO SCH (21:43)
[2018-05-19] MEDS: Insulin Lispro 100 Unit/ML 3 ML KwikPen SUBCUT SCH (21:44)
[2018-05-20] MEDS: Acetaminophen 325 MG Tab PO PRN ×2 (04:01→15:00)
[2018-05-20] MEDS: Levothyroxine 50 MCG Tab PO SCH (07:53)
[2018-05-20] MEDS: Insulin Lispro 100 Unit/ML 3 ML KwikPen SUBCUT SCH ×8 (07:53→20:55)
[2018-05-20] MEDS ORDERED: Warfarin 5 MG Tab PO ONE (08:53)
[2018-05-20] MEDS ORDERED: Levothyroxine 50 MCG Tab PO SCH (09:00)
[2018-05-20] MEDS ORDERED: Oseltamivir 75 MG Cap PO SCH (09:00)
[2018-05-20] MEDS ORDERED: Warfarin 2.5 MG, Warfarin 5 MG PO ONE ×2 (09:30)
[2018-05-20] MEDS: Fluticasone Propionate Nasal Spray 16 GM Bottle NAS SCH (09:58)
[2018-05-20] MEDS: Aspirin 81 MG Tab.EC PO SCH (09:59)
[2018-05-20] MEDS: Gabapentin 300 MG Cap PO SCH ×3 (09:59→20:58)
[2018-05-20] MEDS: Oseltamivir 30 MG Cap PO SCH ×2 (10:00→20:58)
[2018-05-20] MEDS: Allopurinol 100 MG Tab PO SCH (10:01)
[2018-05-20] MEDS ORDERED: Sodium Chloride 0.9% 10 ML Syringe FLUSH PRN (12:22)
--- NOTE | 2018-05-20 12:23 | PCM.PN ---
- General Info Date of Service: 05/20/18 Subjective Update: There were no acute events overnight. Patient slept fairly well. He did not have any fevers. This afternoon he developed a fever to greater than 102. Prior to the fever he reported feeling very cold inside. He was shaking all over and became confused and weak. He received Tylenol followed by lorazepam and then Toradol. Temperature finally started coming down and he has been resting comfortably since then. He reported that his shortness of breath and cough for both better today compared to yesterday. He did not complain of abdominal pain or nausea this morning. Functional Status: Reports: Pain Controlled - Review of Systems General: Reports: Fever, Weakness Pulmonary: Reports: Shortness of Breath Neurological: Reports: Confusion - Patient Data Vitals - Most Recent: Last Vital Signs Temp 37.1 C 05/20/18 11:00 Pulse 82 05/20/18 11:00 Resp 18 05/20/18 11:00 BP 127/71 05/20/18 11:00 Pulse Ox 93 L 05/20/18 03:56 Weight - Most Recent: 120.656 kg I&O - Last 24 Hours: Intake & Output 05/19/18 05/20/18 05/20/18 22:59 06:59 14:59 Output Total 225 Balance -225 Lab Results Last 24 Hours: Laboratory Results - last 24 hr 05/19/18 05/19/18 05/19/18 Range/Units 14:25 14:25 14:30 WBC 9.3 (4.5-11.0) K/uL RBC 5.75 (4.30-5.90) M/uL Hgb 17.8 H (12.0-15.0) g/dL Hct 51.5 (40.0-54.0) % MCV 90 (80-98) fL MCH 31 (27-31) pg MCHC 35 (32-36) % Plt Count 139 L (150-400) K/uL Neut % (Auto) 86 H (36-66) % Lymph % (Auto) 5 L (24-44) % Bell % (Auto) 8 H (2-6) % Eos % (Auto) 0 L (2-4) % Baso % (Auto) 0 (0-1) % PT 20.8 H (9.5-12.0) sec INR 1.96 H (0.80-1.20) Sodium 133 L (140-148) mmol/L Potassium 4.1 (3.6-5.2) mmol/L Chloride 93 L (100-108) mmol/L Carbon Dioxide 30 (21-32) mmol/L Anion Gap 14.1 H (5.0-14.0) mmol/L BUN 19 H (7-18) mg/dL Creatinine 1.4 H (0.8-1.3) mg/dL Est Cr Clr Drug Dosing 47.81 mL/min Estimated GFR (MDRD) 49 L (>60) Glucose 262 H (74-106) mg/dL Lactic Acid (0.4-2.0) mmol/L Calcium 9.2 (8.5-10.1) mg/dL Total Bilirubin 1.9 H (0.2-1.0) mg/dL AST 33 (15-37) U/L ALT 49 (12-78) U/L Alkaline Phosphatase 130 H (46-116) U/L Troponin I < 0.017 (0.000-0.056) ng/mL Total Protein 7.7 (6.4-8.2) g/dL Albumin 3.5 (3.4-5.0) g/dL Globulin 4.2 H (2.3-3.5) g/dL Albumin/Globulin Ratio 0.8 L (1.2-2.2) Urine Color Urine Appearance Urine pH (4.5-8.0) Ur Specific [place] (1.008-1.030) Urine Protein (NEGATIVE) mg/dL Urine Glucose (UA) (NEGATIVE) mg/dL Urine Ketones (NEGATIVE) mg/dL Urine Occult Blood (NEGATIVE) Urine Nitrite (NEGAITVE) Urine Bilirubin (NEGATIVE) Urine Urobilinogen (NORMAL) mg/dL Ur Leukocyte Esterase (NEGATIVE) Urine RBC (0-5) Urine WBC (0-5) Ur Epithelial Cells Amorphous Sediment Urine Bacteria Urine Mucus Urine Other 05/19/18 05/19/18 05/20/18 Range/Units 18:14 19:19 06:12 WBC 9.3 (4.5-11.0) K/uL RBC 5.61 (4.30-5.90) M/uL Hgb 17.3 H (12.0-15.0) g/dL Hct 50.8 (40.0-54.0) % MCV 91 (80-98) fL MCH 31 (27-31) pg MCHC 34 (32-36) % Plt Count 134 L (150-400) K/uL Neut % (Auto) (36-66) % Lymph % (Auto) (24-44) % Bell % (Auto) (2-6) % Eos % (Auto) (2-4) % Baso % (Auto) (0-1) % PT (9.5-12.0) sec INR (0.80-1.20) Sodium (140-148) mmol/L Potassium (3.6-5.2) mmol/L Chloride (100-108) mmol/L Carbon Dioxide (21-32) mmol/L Anion Gap (5.0-14.0) mmol/L BUN (7-18) mg/dL Creatinine (0.8-1.3) mg/dL Est Cr Clr Drug Dosing mL/min Estimated GFR (MDRD) (>60) Glucose (74-106) mg/dL Lactic Acid 3.0 H (0.4-2.0) mmol/L Calcium (8.5-10.1) mg/dL Total Bilirubin (0.2-1.0) mg/dL AST (15-37) U/L ALT (12-78) U/L Alkaline Phosphatase (46-116) U/L Troponin I (0.000-0.056) ng/mL Total Protein (6.4-8.2) g/dL Albumin (3.4-5.0) g/dL Globulin (2.3-3.5) g/dL Albumin/Globulin Ratio (1.2-2.2) Urine Color Yellow Urine Appearance Clear Urine pH 5.0 (4.5-8.0) Ur Specific [place] 1.015 (1.008-1.030) Urine Protein Trace (NEGATIVE) mg/dL Urine Glucose (UA) >1000 H (NEGATIVE) mg/dL Urine Ketones Negative (NEGATIVE) mg/dL Urine Occult Blood Trace (NEGATIVE) Urine Nitrite Negative (NEGAITVE) Urine Bilirubin Negative (NEGATIVE) Urine Urobilinogen Normal (NORMAL) mg/dL Ur Leukocyte Esterase Negative (NEGATIVE) Urine RBC 0-5 (0-5) Urine WBC 0-5 (0-5) Ur Epithelial Cells Rare Amorphous Sediment Not seen Urine Bacteria Not seen Urine Mucus Not seen Urine Other 05/20/18 05/20/18 Range/Units 06:12 06:12 WBC (4.5-11.0) K/uL RBC (4.30-5.90) M/uL Hgb (12.0-15.0) g/dL Hct (40.0-54.0) % MCV (80-98) fL MCH (27-31) pg MCHC (32-36) % Plt Count (150-400) K/uL Neut % (Auto) (36-66) % Lymph % (Auto) (24-44) % Bell % (Auto) (2-6) % Eos % (Auto) (2-4) % Baso % (Auto) (0-1) % PT 16.3 H (9.5-12.0) sec INR 1.52 H (0.80-1.20) Sodium 133 L (140-148) mmol/L Potassium 3.7 (3.6-5.2) mmol/L Chloride 95 L (100-108) mmol/L Carbon Dioxide 28 (21-32) mmol/L Anion Gap 13.7 (5.0-14.0) mmol/L BUN 20 H (7-18) mg/dL Creatinine 1.5 H (0.8-1.3) mg/dL Est Cr Clr Drug Dosing 44.62 mL/min Estimated GFR (MDRD) 46 L (>60) Glucose 258 H (74-106) mg/dL Lactic Acid (0.4-2.0) mmol/L Calcium 9.1 (8.5-10.1) mg/dL Total Bilirubin (0.2-1.0) mg/dL AST (15-37) U/L ALT (12-78) U/L Alkaline Phosphatase (46-116) U/L Troponin I (0.000-0.056) ng/mL Total Protein (6.4-8.2) g/dL Albumin (3.4-5.0) g/dL Globulin (2.3-3.5) g/dL Albumin/Globulin Ratio (1.2-2.2) Urine Color Urine Appearance Urine pH (4.5-8.0) Ur Specific [place] (1.008-1.030) Urine Protein (NEGATIVE) mg/dL Urine Glucose (UA) (NEGATIVE) mg/dL Urine Ketones (NEGATIVE) mg/dL Urine Occult Blood (NEGATIVE) Urine Nitrite (NEGAITVE) Urine Bilirubin (NEGATIVE) Urine Urobilinogen (NORMAL) mg/dL Ur Leukocyte Esterase (NEGATIVE) Urine RBC (0-5) Urine WBC (0-5) Ur Epithelial Cells Amorphous Sediment Urine Bacteria Urine Mucus Urine Other [place] Results Last 24 Hours: Microbiology 05/19/18 18:00 Influenza Type A Antigen Screen - Final Nasopharyngeal Swab NEGATIVE INFLUENZA A VIRUS AG Influenza Type B Antigen Screen - Final Positive Influenza B Ag Med Orders - Current: Current Medications Acetaminophen (Tylenol) 650 mg PO Q4H PRN PRN Reason: Pain (Mild 1-3)/fever Last Admin: 05/20/18 04:01 Dose: 650 mg Albuterol (Proventil Neb Soln) 2.5 mg NEB Q4H PRN PRN Reason: Shortness Of Breath/wheezing Albuterol/Ipratropium (Duoneb 3.0-0.5 Mg/3 Ml) 3 ml INH ONETIME [facility] Allopurinol (Zyloprim) 100 mg PO DAILY [facility] Last Admin: 05/20/18 10:01 Dose: 100 mg Aspirin (Halfprin) 81 mg PO DAILY [facility] Last Admin: 05/20/18 09:59 Dose: 81 mg Benzonatate (Tessalon Perles) 100 mg PO TID PRN PRN Reason: Cough Fluticasone Propionate (Flonase) 0 gm KARIN DAILY [facility] Last Admin: 05/20/18 09:58 Dose: 1 spray Gabapentin (Neurontin) 300 mg PO TID [facility] Last Admin: 05/20/18 09:59 Dose: 300 mg Guaifenesin/Dextromethorphan (Robitussin Dm) 10 ml PO Q4H PRN PRN Reason: Cough Insulin Glargine (Lantus Solostar) 32 units SUBCUT BEDTIME [facility] Insulin Human Lispro (Humalog) 0 unit SUBCUT QIDACANDBED [facility]; Protocol Last Admin: 05/20/18 12:14 Dose: 4 units Insulin Human Lispro (Humalog) 5 unit SUBCUT TIDMEALS [facility] Last Admin: 05/20/18 09:23 Dose: Not Given Levothyroxine Sodium (Synthroid) 50 mcg PO ACBREAKFAST [facility] Last Admin: 05/20/18 07:53 Dose: 50 mcg Non-Formulary Medication (Nortriptyline [Nortriptyline]) 50 mg PO BEDTIME [facility] Ondansetron HCl (Zofran Odt) 4 mg PO Q6H PRN PRN Reason: Nausea able to take PO Oseltamivir Phosphate (Tamiflu) 30 mg PO BID [facility] Last Admin: 05/20/18 10:00 Dose: 30 mg Oxycodone HCl (Oxycodone) 5 mg PO Q4H PRN PRN Reason: Pain (moderate 4-6) Last Admin: 05/19/18 21:42 Dose: 5 mg Polyethylene Glycol (Miralax) 17 gm PO DAILY PRN PRN Reason: Constipation Senna/Docusate Sodium (Senna Plus) 1 tab PO BID PRN PRN Reason: Constipation Discontinued Medications Acetaminophen (Tylenol Bulk Bottle) 325 mg PO NOW ONE Stop: 05/19/18 15:48 Last Admin: 05/20/18 07:31 Dose: Not Given Acetaminophen (Tylenol) 325 mg PO NOW ONE Stop: 05/19/18 16:26 Last Admin: 05/19/18 16:33 Dose: 325 mg Gabapentin (Neurontin) 300 mg PO ONETIME ONE Stop: 05/19/18 15:47 Last Admin: 05/19/18 16:28 Dose: 300 mg Azithromycin 500 mg/ Sodium (Chloride) 250 mls @ 250 mls/hr IV ONETIME ONE Stop: 05/19/18 18:56 Last Admin: 05/20/18 07:32 Dose: Not Given Ceftriaxone Sodium 1 gm/ (Sodium Chloride) 50 mls @ 100 mls/hr IV ONETIME ONE Stop: 05/19/18 18:25 Last Admin: 05/20/18 07:32 Dose: Not Given Insulin Glargine (Lantus Solostar) 32 units SUBCUT BEDTIME [facility] Insulin Glargine (Lantus Solostar) 16 units SUBCUT BEDTIME [facility] Stop: 05/19/18 21:01 Last Admin: 05/19/18 21:43 Dose: 16 units Levothyroxine Sodium (Synthroid) 50 mcg PO QAM [facility] Nitroglycerin (Nitrostat) 0.4 mg SL Q5M PRN PRN Reason: Chest Pain Last Admin: 05/19/18 17:37 Dose: 0.4 mg Oseltamivir Phosphate (Tamiflu) 75 mg PO ONETIME ONE Stop: 05/19/18 17:56 Last Admin: 05/19/18 18:36 Dose: 75 mg Oseltamivir Phosphate (Tamiflu) 75 mg PO BID [facility] Stop: 05/24/18 09:01 Oxycodone/Acetaminophen (Percocet 325-10 Mg) 1 tab PO ONETIME ONE Stop: 05/19/18 15:48 Last Admin: 05/19/18 16:28 Dose: 1 tab Sodium Chloride (Saline Flush) 10 ml FLUSH ASDIRECTED PRN PRN Reason: Keep Vein Open Warfarin Sodium (Coumadin) 5 mg PO ONETIME ONE Stop: 05/19/18 18:47 Last Admin: 05/20/18 07:33 Dose: Not Given Warfarin Sodium 2.5 mg/ (Warfarin Sodium 5 mg) 7.5 mg PO ONETIME ONE Stop: 05/20/18 09:31 Last Admin: 05/20/18 10:01 Dose: 7.5 mg - Exam Quality Assessment: Supplemental Oxygen General: Alert, Cooperative, No Acute Distress, Lethargic. No: Oriented Lungs: Clear to Auscultation, Normal Respiratory Effort. No: Wheezing Cardiovascular: Regular Rate, Regular Rhythm GI/Abdominal Exam: Soft, No Distention Extremities: No Pedal Edema Skin: Warm, Moist Psy/Mental Status: Alert. No: Agitated - Problem List & Annotations (1) Influenza B SNOMED Code(s): 61169568 Code(s): J10.1 - FLU DUE TO OTH IDENT INFLUENZA VIRUS W OTH RESP MANIFEST Status: Acute Current Visit: Yes (2) Type 2 diabetes mellitus SNOMED Code(s): 09177534 Code(s): E11.9 - TYPE 2 DIABETES MELLITUS WITHOUT COMPLICATIONS Status: Chronic Current Visit: No Qualifiers: Diabetes mellitus ratchet setter insulin use: with ratchet setter use Diabetes mellitus complication status: with neurologic complications Diabetes mellitus complication detail: with polyneuropathy Qualified Code(s): E11.42 - Type 2 diabetes mellitus with diabetic polyneuropathy; Z79.4 - halfway (current) use of insulin (3) CKD (chronic kidney disease), stage III SNOMED Code(s): 707257830 Code(s): N18.3 - CHRONIC KIDNEY DISEASE, STAGE 3 (MODERATE) Status: Chronic Current Visit: Yes - Problem List Review Problem List Initiated/Reviewed/Updated: Yes - My Orders Last 24 Hours: My Active Orders 05/19/18 18:37 Resuscitation Status Routine 05/19/18 19:41 Patient Status [ADT] Routine Blood Glucose Check, Bedside [RC] WITHMEALSANDBED Communication Order [RC] PRN Communication Order [RC] PRN Diabetes Education [RC] Click to Edit Intake and Output [RC] QSHIFT Notify Provider Vital Signs [RC] ASDIRECTED Oxygen Therapy [RC] Q12H RT Aerosol Therapy [RC] ASDIRECTED Up With Assistance [RC] ASDIRECTED VTE/DVT Education [RC] Per Unit Routine Vital Signs [RC] Q4H Acetaminophen [Tylenol] 650 mg PO Q4H PRN Albuterol [Proventil Neb Soln] 2.5 mg NEB Q4H PRN Albuterol/Ipratropium [DuoNeb 3.0-0.5 MG/3 ML] 3 ml INH ONETIME Benzonatate [Tessalon Perles] 100 mg PO TID PRN Dextromethorphan/guaiFENesin [Robitussin DM] 10 ml PO Q4H PRN Docusate Sodium/Sennosides [Senna Plus] 1 tab PO BID PRN Ondansetron [Zofran ODT] 4 mg PO Q6H PRN Polyethylene Glycol 3350 [MiraLAX] 17 gm PO DAILY PRN oxyCODONE 5 mg PO Q4H PRN 05/19/18 20:00 Insulin Lispro [HumaLOG] See Protocol SUBCUT QIDACANDBED 05/19/18 21:00 Gabapentin [Neurontin] 300 mg PO TID Nortriptyline [Nortriptyline] 50 mg PO BEDTIME 05/19/18 Dinner Consistent Carbohydrate Diet [DIET] 05/20/18 07:30 Levothyroxine [Synthroid] 50 mcg PO ACBREAKFAST 05/20/18 08:00 Insulin Lispro [HumaLOG] 5 unit SUBCUT TIDMEALS 05/20/18 09:00 Allopurinol [Zyloprim] 100 mg PO DAILY Aspirin [Halfprin] 81 mg PO DAILY Fluticasone Propionate [Flonase] 0 gm KARIN DAILY Oseltamivir [Tamiflu] 30 mg PO BID 05/20/18 12:22 Peripheral IV Care [RC] . DIRECTED Sodium Chloride 0.9% [Saline Flush] 10 ml FLUSH ASDIRECTED PRN Peripheral IV Insertion Adult [OM.PC] Routine 05/20/18 12:30 Sodium Chloride 0.9% [Normal Saline] 1,000 ml IV ASDIRECTED 05/20/18 21:00 Insulin Glarg,Human.Rec.Analog [LantUS Solostar] 32 units SUBCUT BEDTIME 05/21/18 05:00 BASIC METABOLIC PANEL,BMP [CHEM] Timed CBC W/O DIFF,HEMOGRAM [HEME] Timed (1) INR,PT,PROTHROMBIN TIME [COAG] Timed - Plan Plan:: ASSESSMENT AND PLAN - Acute influenza B - symptoms currently include chest pain, cough, shortness of breath and runny nose. Was doing well this morning but now has increased confusion, high fever and tachycardia. He is very lethargic after the fever which is finally improving. 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 He has not had much to eat but blood sugar remains fairly elevated. -Continue long-acting insulin -Reduce short acting insulin 5 units with meals until intake improves -Low-dose sliding scale insulin Stage III chronic kidney disease - Creatinine near baseline at this time. Oral intake is poor and an IV will be started. COPD - No evidence for exacerbation at this time. He is not currently hypoxic. History of DVT and PE - INR is low this morning at 1.5. -7.5 mg of warfarin today and recheck INR in the morning Maintenance issues - - DVT prophylaxis - warfarin - GI prophylaxis - not indicated - Nutrition - diabetic diet Disposition - I would anticipate discharged home with his after the hospital stay Primary care physician - Dr Rafia Morales M.D.
[2018-05-20] MEDS: Sodium Chloride 0.9% 1,000 ML IV SCH ×2 (13:25→17:31)
[2018-05-20] MEDS ORDERED: LORazepam 2 MG/ML SDV IVPUSH ONE (14:49)
[2018-05-20] MEDS ORDERED: LORazepam 2 MG/ML SDV ONE (14:52)
[2018-05-20] MEDS ORDERED: Sodium Chloride 0.9% 1,000 ML IV SCH ×2 (15:15→19:15)
[2018-05-20] MEDS ORDERED: Ketorolac 30 MG/ML SDV IVPUSH ONE (15:50)
[2018-05-20] MEDS ORDERED: Ketorolac 30 MG/ML SDV ONE (15:51)
[2018-05-20] MEDS ORDERED: Acetaminophen 1,000 MG in Premix Bag 1 BAG IV ONE (18:38)
[2018-05-20] MEDS: Insulin Glargine,Human Rec. Analog 100 Units/ML 3 ML Pen SUBCUT SCH (20:55)
[2018-05-21] MEDS: Acetaminophen 1,000 MG in Premix Bag 1 BAG IV PRN ×3 (00:53→15:18)
[2018-05-21] MEDS: Sodium Chloride 0.9% 1,000 ML IV SCH ×4 (00:55→19:22)
[2018-05-21] MEDS ORDERED: Ketorolac 30 MG/ML SDV IVPUSH ONE (03:57)
[2018-05-21] MEDS ORDERED: Ketorolac 30 MG/ML SDV ONE (04:03)
[2018-05-21] MEDS: Insulin Lispro 100 Unit/ML 3 ML KwikPen SUBCUT SCH ×7 (07:41→21:08)
[2018-05-21] MEDS: Levothyroxine 50 MCG Tab PO SCH (07:43)
[2018-05-21] MEDS: Fluticasone Propionate Nasal Spray 16 GM Bottle NAS SCH (08:39)
[2018-05-21] MEDS: Gabapentin 300 MG Cap PO SCH ×3 (08:40→20:55)
[2018-05-21] MEDS: Aspirin 81 MG Tab.EC PO SCH (08:40)
[2018-05-21] MEDS: Oseltamivir 30 MG Cap PO SCH ×2 (08:41→20:55)
[2018-05-21] MEDS: Allopurinol 100 MG Tab PO SCH (08:44)
[2018-05-21] MEDS ORDERED: Sodium Chloride 0.9% 1,000 ML IV SCH (09:00)
[2018-05-21] MEDS: oxyCODONE 5 MG Tab PO PRN ×3 (09:31→20:55)
--- NOTE | 2018-05-21 09:32 | PCM.PN ---
- General Info Date of Service: 05/21/18 Subjective Update: Overnight the patient had a couple of episodes of fever with associated rigors and tachycardia. He is minimally interactive this morning and I'm unable to get any history out of him. Temperature is better this morning and heart rate has improved but remains mildly tachycardic. He has not had much to eat or drink but blood sugars remain elevated. Blood pressures have slowly trended down throughout the morning. He is on supplemental oxygen. Functional Status: Reports: Pain Controlled - Review of Systems General: Reports: Fever, Weakness Pulmonary: Reports: Cough Psychiatric: Reports: Confusion - Patient Data Vitals - Most Recent: Last Vital Signs Temp 37.4 C 05/21/18 07:34 Pulse 107 H 05/21/18 07:34 Resp 39 H 05/21/18 07:34 BP 115/54 L 05/21/18 07:34 Pulse Ox 94 L 05/21/18 07:34 Weight - Most Recent: 120.656 kg I&O - Last 24 Hours: Intake & Output 05/20/18 05/21/18 05/21/18 22:59 06:59 14:59 Intake Total 925 1610 100 Balance 925 1610 100 Lab Results Last 24 Hours: Laboratory Results - last 24 hr 05/21/18 05/21/18 05/21/18 Range/Units 05:30 05:30 05:30 WBC 6.8 (4.5-11.0) K/uL RBC 6.01 H (4.30-5.90) M/uL Hgb 18.3 H* (12.0-15.0) g/dL Hct 54.5 H (40.0-54.0) % MCV 91 (80-98) fL MCH 30 (27-31) pg MCHC 34 (32-36) % Plt Count 80 L (150-400) K/uL PT 15.5 H (9.5-12.0) sec INR 1.44 H (0.80-1.20) Sodium 138 L (140-148) mmol/L Potassium 3.7 (3.6-5.2) mmol/L Chloride 102 (100-108) mmol/L Carbon Dioxide 22 (21-32) mmol/L Anion Gap 17.7 H (5.0-14.0) mmol/L BUN 36 H D (7-18) mg/dL Creatinine 2.2 H (0.8-1.3) mg/dL Est Cr Clr Drug Dosing 30.42 mL/min Estimated GFR (MDRD) 29 L (>60) Glucose 268 H (74-106) mg/dL Calcium 8.8 (8.5-10.1) mg/dL Ahmet Results Last 24 Hours: Microbiology 05/19/18 18:00 Aerobic Blood Culture - Preliminary Blood - Venous NO GROWTH AFTER 1 DAY Anaerobic Blood Culture - Preliminary NO GROWTH AFTER 1 DAY 05/19/18 18:00 Aerobic Blood Culture - Preliminary Blood - Venous - Lab Draw NO GROWTH AFTER 1 DAY Anaerobic Blood Culture - Preliminary NO GROWTH AFTER 1 DAY Med Orders - Current: Current Medications Acetaminophen (Tylenol) 650 mg PO Q4H PRN PRN Reason: Pain (Mild 1-3)/fever Last Admin: 05/20/18 15:00 Dose: 650 mg Albuterol (Proventil Neb Soln) 2.5 mg NEB Q4H PRN PRN Reason: Shortness Of Breath/wheezing Albuterol/Ipratropium (Duoneb 3.0-0.5 Mg/3 Ml) 3 ml INH ONETIME [facility] Allopurinol (Zyloprim) 100 mg PO DAILY [facility] Last Admin: 05/21/18 08:44 Dose: 100 mg Aspirin (Halfprin) 81 mg PO DAILY [facility] Last Admin: 05/21/18 08:40 Dose: 81 mg Benzonatate (Tessalon Perles) 100 mg PO TID PRN PRN Reason: Cough Fluticasone Propionate (Flonase) 0 gm KARIN DAILY [facility] Last Admin: 05/21/18 08:39 Dose: 1 spray Gabapentin (Neurontin) 300 mg PO TID [facility] Last Admin: 05/21/18 08:40 Dose: 300 mg Guaifenesin/Dextromethorphan (Robitussin Dm) 10 ml PO Q4H PRN PRN Reason: Cough Sodium Chloride (Normal Saline) 1,000 mls @ 125 mls/hr IV ASDIRECTED [facility] Last Admin: 05/21/18 09:12 Dose: 125 mls/hr Acetaminophen 1,000 mg/ Premix 100 mls @ 400 mls/hr IV Q6H PRN PRN Reason: Fever Stop: 05/21/18 19:12 Last Admin: 05/21/18 06:59 Dose: 400 mls/hr Sodium Chloride (Normal Saline) 1,000 mls @ 500 mls/hr IV ASDIRECTED [facility] Stop: 05/21/18 11:01 Insulin Glargine (Lantus Solostar) 32 units SUBCUT BEDTIME [facility] Last Admin: 05/20/18 20:55 Dose: 32 units Insulin Human Lispro (Humalog) 0 unit SUBCUT QIDACANDBED [facility]; Protocol Last Admin: 05/21/18 07:41 Dose: 3 units Insulin Human Lispro (Humalog) 5 unit SUBCUT TIDMEALS [facility] Last Admin: 05/21/18 08:32 Dose: Not Given Levothyroxine Sodium (Synthroid) 50 mcg PO ACBREAKFAST [facility] Last Admin: 05/21/18 07:43 Dose: Not Given Ondansetron HCl (Zofran Odt) 4 mg PO Q6H PRN PRN Reason: Nausea able to take PO Oseltamivir Phosphate (Tamiflu) 30 mg PO BID [facility] Last Admin: 05/21/18 08:41 Dose: 30 mg Oxycodone HCl (Oxycodone) 5 mg PO Q4H PRN PRN Reason: Pain (moderate 4-6) Last Admin: 05/21/18 09:31 Dose: 5 mg Polyethylene Glycol (Miralax) 17 gm PO DAILY PRN PRN Reason: Constipation Senna/Docusate Sodium (Senna Plus) 1 tab PO BID PRN PRN Reason: Constipation Sodium Chloride (Saline Flush) 10 ml FLUSH ASDIRECTED PRN PRN Reason: Keep Vein Open Warfarin Sodium (Coumadin) 10 mg PO ONETIME ONE Stop: 05/21/18 13:01 Discontinued Medications Acetaminophen (Tylenol Bulk Bottle) 325 mg PO NOW ONE Stop: 05/19/18 15:48 Last Admin: 05/20/18 07:31 Dose: Not Given Acetaminophen (Tylenol) 325 mg PO NOW ONE Stop: 05/19/18 16:26 Last Admin: 05/19/18 16:33 Dose: 325 mg Gabapentin (Neurontin) 300 mg PO ONETIME ONE Stop: 05/19/18 15:47 Last Admin: 05/19/18 16:28 Dose: 300 mg Azithromycin 500 mg/ Sodium (Chloride) 250 mls @ 250 mls/hr IV ONETIME ONE Stop: 05/19/18 18:56 Last Admin: 05/20/18 07:32 Dose: Not Given Ceftriaxone Sodium 1 gm/ (Sodium Chloride) 50 mls @ 100 mls/hr IV ONETIME ONE Stop: 05/19/18 18:25 Last Admin: 05/20/18 07:32 Dose: Not Given Sodium Chloride (Normal Saline) 1,000 mls @ 500 mls/hr IV ASDIRECTED [facility] Stop: 05/20/18 16:15 Acetaminophen 1,000 mg/ Premix 100 mls @ 400 mls/hr IV NOW ONE Stop: 05/20/18 18:52 Last Admin: 05/20/18 18:45 Dose: 400 mls/hr Sodium Chloride (Normal Saline) 1,000 mls @ 999 mls/hr IV ASDIRECTED [facility] Stop: 05/20/18 20:16 Insulin Glargine (Lantus Solostar) 32 units SUBCUT BEDTIME [facility] Insulin Glargine (Lantus Solostar) 16 units SUBCUT BEDTIME [facility] Stop: 05/19/18 21:01 Last Admin: 05/19/18 21:43 Dose: 16 units Ketorolac Tromethamine (Toradol) 30 mg IVPUSH ONETIME ONE Stop: 05/20/18 15:51 Last Admin: 05/20/18 16:22 Dose: 30 mg Ketorolac Tromethamine (Toradol) Confirm Administered Dose 30 mg .ROUTE .STK- MED ONE Stop: 05/20/18 15:52 Last Admin: 05/20/18 16:23 Dose: Not Given Ketorolac Tromethamine (Toradol) 15 mg IVPUSH ONETIME ONE Stop: 05/21/18 03:58 Last Admin: 05/21/18 04:06 Dose: 15 mg Ketorolac Tromethamine (Toradol) Confirm Administered Dose 30 mg .ROUTE .STK- MED ONE Stop: 05/21/18 04:04 Last Admin: 05/21/18 04:08 Dose: Not Given Levothyroxine Sodium (Synthroid) 50 mcg PO QAM [facility] Lorazepam (Ativan) 0.5 mg IVPUSH ONETIME ONE Stop: 05/20/18 14:50 Last Admin: 05/20/18 14:56 Dose: Not Given Lorazepam (Ativan) Confirm Administered Dose 2 mg .ROUTE .STK-MED ONE Stop: 05/20/18 14:53 Last Admin: 05/20/18 14:57 Dose: 2 mg Nitroglycerin (Nitrostat) 0.4 mg SL Q5M PRN PRN Reason: Chest Pain Last Admin: 05/19/18 17:37 Dose: 0.4 mg Non-Formulary Medication (Nortriptyline [Nortriptyline]) 50 mg PO BEDTIME [facility] Last Admin: 05/20/18 13:53 Dose: Not Given Oseltamivir Phosphate (Tamiflu) 75 mg PO ONETIME ONE Stop: 05/19/18 17:56 Last Admin: 05/19/18 18:36 Dose: 75 mg Oseltamivir Phosphate (Tamiflu) 75 mg PO BID [facility] Stop: 05/24/18 09:01 Oxycodone/Acetaminophen (Percocet 325-10 Mg) 1 tab PO ONETIME ONE Stop: 05/19/18 15:48 Last Admin: 05/19/18 16:28 Dose: 1 tab Sodium Chloride (Saline Flush) 10 ml FLUSH ASDIRECTED PRN PRN Reason: Keep Vein Open Warfarin Sodium (Coumadin) 5 mg PO ONETIME ONE Stop: 05/19/18 18:47 Last Admin: 05/20/18 07:33 Dose: Not Given Warfarin Sodium 2.5 mg/ (Warfarin Sodium 5 mg) 7.5 mg PO ONETIME ONE Stop: 05/20/18 09:31 Last Admin: 05/20/18 10:01 Dose: 7.5 mg - Exam Quality Assessment: Supplemental Oxygen General: Alert, No Acute Distress, Lethargic. No: Oriented, Cooperative HEENT: Pupils Equal Neck: Supple Lungs: Clear to Auscultation, Normal Respiratory Effort. No: Wheezing Cardiovascular: Regular Rhythm, Tachycardia GI/Abdominal Exam: Soft, No Distention Extremities: No Pedal Edema. No: Increased Warmth Skin: Cool, Moist Psy/Mental Status: Alert, Normal Affect - Problem List & Annotations (1) Influenza B SNOMED Code(s): 82197924 Code(s): J10.1 - FLU DUE TO OTH IDENT INFLUENZA VIRUS W OTH RESP MANIFEST Status: Acute Current Visit: Yes (2) Type 2 diabetes mellitus SNOMED Code(s): 09626294 Code(s): E11.9 - TYPE 2 DIABETES MELLITUS WITHOUT COMPLICATIONS Status: Chronic Current Visit: No Qualifiers: Diabetes mellitus nursing home insulin use: with market researcher use Diabetes mellitus complication status: with neurologic complications Diabetes mellitus complication detail: with polyneuropathy Qualified Code(s): E11.42 - Type 2 diabetes mellitus with diabetic polyneuropathy; Z79.4 - [facility] (current) use of insulin (3) CKD (chronic kidney disease), stage III SNOMED Code(s): 819814610 Code(s): N18.3 - CHRONIC KIDNEY DISEASE, STAGE 3 (MODERATE) Status: Chronic Current Visit: Yes - Problem List Review Problem List Initiated/Reviewed/Updated: Yes - My Orders Last 24 Hours: My Active Orders 05/20/18 09:00 Allopurinol [Zyloprim] 100 mg PO DAILY Aspirin [Halfprin] 81 mg PO DAILY Fluticasone Propionate [Flonase] 0 gm KARIN DAILY Oseltamivir [Tamiflu] 30 mg PO BID 05/20/18 12:22 Peripheral IV Care [RC] . DIRECTED Sodium Chloride 0.9% [Saline Flush] 10 ml FLUSH ASDIRECTED PRN Peripheral IV Insertion Adult [OM.PC] Routine 05/20/18 12:30 Sodium Chloride 0.9% [Normal Saline] 1,000 ml IV ASDIRECTED 05/20/18 15:52 Transfer Patient (Change bed) [ADT] Routine 05/20/18 19:11 Acetaminophen [Ofirmev] 1,000 mg Premix Bag 1 bag IV Q6H 05/20/18 21:00 Insulin Glarg,Human.Rec.Analog [LantUS Solostar] 32 units SUBCUT BEDTIME 05/21/18 09:00 Sodium Chloride 0.9% [Normal Saline] 1,000 ml IV ASDIRECTED 05/21/18 13:00 Warfarin [Coumadin] 10 mg PO ONETIME ONE 05/22/18 05:00 BASIC METABOLIC PANEL,BMP [CHEM] Timed CBC W/O DIFF,HEMOGRAM [HEME] Timed (1) INR,PT,PROTHROMBIN TIME [COAG] Timed - Plan Plan:: ASSESSMENT AND PLAN - Acute influenza B - symptoms currently include chest pain, cough, shortness of breath and runny nose. Patient has been very lethargic and has had several episodes of fever throughout the night with associated tachypnea and tachycardia. Blood pressure slowly trending down despite fluid boluses this morning. 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 Blood sugars remained elevated despite poor intake. -Continue long-acting insulin -Reduce short acting insulin 5 units with meals until intake improves -Low-dose sliding scale insulin Acute kidney injury - baseline of stage III kidney disease. Creatinine has risen over the past 24 hours, likely secondary to intravascular volume depletion with fevers and dehydration. Blood pressures trending down despite fluid boluses. -Continue IV fluids, consider additional boluses -Repeat labs in the morning COPD - No evidence for exacerbation at this time with no wheezing but he is hypoxic and requiring supplemental oxygen. History of DVT and PE - INR is low this again morning at 1.5. -10 mg of warfarin today and recheck INR in the morning Maintenance issues - - DVT prophylaxis - warfarin - GI prophylaxis - not indicated - Nutrition - diabetic diet Disposition - I would anticipate discharged home with his versus [facility] after the hospital stay Primary care physician - Dr Rafia Morales M.D.
[2018-05-21] MEDS ORDERED: Warfarin 5 MG Tab PO ONE (13:00)
[2018-05-21] MEDS: Acetaminophen 325 MG Tab PO PRN ×2 (16:48→20:55)
[2018-05-21] MEDS: Insulin Glargine,Human Rec. Analog 100 Units/ML 3 ML Pen SUBCUT SCH (21:07)
[2018-05-21] MEDS: Acetaminophen 650 MG Supp RECTAL PRN (23:56)
[2018-05-22] MEDS ORDERED: Dimethicone 20%/Zinc Oxide 25% 56 GM Spray Bottle TOP PRN (00:02)
[2018-05-22] MEDS: Sodium Chloride 0.9% 1,000 ML IV SCH (03:23)
[2018-05-22] MEDS: Acetaminophen 650 MG Supp RECTAL PRN ×3 (04:23→21:53)
[2018-05-22] MEDS: Levothyroxine 50 MCG Tab PO SCH (08:26)
[2018-05-22] MEDS: Insulin Lispro 100 Unit/ML 3 ML KwikPen SUBCUT SCH ×7 (08:34→20:09)
[2018-05-22] MEDS: Oseltamivir 30 MG Cap PO SCH ×2 (09:27→20:05)
[2018-05-22] MEDS: Aspirin 81 MG Tab.EC PO SCH (09:27)
[2018-05-22] MEDS: Gabapentin 300 MG Cap PO SCH ×3 (09:27→20:05)
[2018-05-22] MEDS: Allopurinol 100 MG Tab PO SCH (09:28)
--- NOTE | 2018-05-22 09:28 | CR ---
CHEST: Portable CLINICAL HISTORY:Dyspnea COMPARISON:05/19/2018 FINDINGS: There is less than optimal inspiration which exaggerates lung markings. No infiltrate, effusion or pneumothorax is seen Impression: Limited chest with poor inspiratory level. No acute cardiopulmonary process
--- NOTE | 2018-05-22 10:09 | PCM.PN ---
- General Info Date of Service: 05/22/18 Subjective Update: Mr. Tinajero is experienced increased respiratory compromise since last night and has become less responsive. Chest x-ray obtained today shows no acute process but study was limited by shallow inspiration. Blood gases show evidence of hyperventilation with mild respiratory alkalosis. Because of his confusion and lethargy he is unable to provide information concerning symptoms or review of systems. - Patient Data Vitals - Most Recent: Last Vital Signs Temp 99.1 F 05/22/18 08:00 Pulse 105 H 05/22/18 08:00 Resp 37 H 05/22/18 08:00 BP 160/83 H 05/22/18 08:00 Pulse Ox 98 05/22/18 08:00 Weight - Most Recent: 266 lb 0.015 oz I&O - Last 24 Hours: Intake & Output 05/21/18 05/22/18 05/22/18 22:59 06:59 14:59 Intake Total 2341 1445 Balance 2341 1445 Lab Results Last 24 Hours: Laboratory Results - last 24 hr 05/22/18 05/22/18 05/22/18 Range/Units 05:53 05:53 05:53 WBC 5.3 (4.5-11.0) K/uL RBC 5.46 (4.30-5.90) M/uL Hgb 16.9 H (12.0-15.0) g/dL Hct 50.9 (40.0-54.0) % MCV 93 (80-98) fL MCH 31 (27-31) pg MCHC 33 (32-36) % Plt Count 67 L (150-400) K/uL PT 15.6 H (9.5-12.0) sec INR 1.45 H (0.80-1.20) Puncture Site ABG pH (7.350-7.450) ABG pCO2 (35.0-42.0) mmHg ABG pO2 (75.0-100.0) mmHg ABG HCO3 (22.0-26.0) mmol/L ABG Total CO2 (23.0-27.0) mmol/L ABG O2 Saturation (95.0-98.0) % ABG O2 Content (15.0-23.0) %vol ABG Base Excess mm/L ABG Hemoglobin (13.5-18.0) g/dL ABG Oxyhemoglobin % ABG Carboxyhemoglobin (0.0-1.6) % ABG Methemoglobin % Desmond Test O2 Delivery Device Sodium 145 (140-148) mmol/L Potassium 3.6 (3.6-5.2) mmol/L Chloride 109 H (100-108) mmol/L Carbon Dioxide 25 (21-32) mmol/L Anion Gap 14.6 H (5.0-14.0) mmol/L BUN 37 H (7-18) mg/dL Creatinine 2.0 H (0.8-1.3) mg/dL Est Cr Clr Drug Dosing 33.47 mL/min Estimated GFR (MDRD) 33 L (>60) Glucose 231 H (74-106) mg/dL Calcium 8.6 (8.5-10.1) mg/dL 05/22/18 Range/Units 08:45 WBC (4.5-11.0) K/uL RBC (4.30-5.90) M/uL Hgb (12.0-15.0) g/dL Hct (40.0-54.0) % MCV (80-98) fL MCH (27-31) pg MCHC (32-36) % Plt Count (150-400) K/uL PT (9.5-12.0) sec INR (0.80-1.20) Puncture Site Rt radial ABG pH 7.474 H (7.350-7.450) ABG pCO2 27.1 L (35.0-42.0) mmHg ABG pO2 71.9 L (75.0-100.0) mmHg ABG HCO3 19.7 L (22.0-26.0) mmol/L ABG Total CO2 16.2 L (23.0-27.0) mmol/L ABG O2 Saturation 94.8 L (95.0-98.0) % ABG O2 Content 23.0 (15.0-23.0) %vol ABG Base Excess -1.8 mm/L ABG Hemoglobin 17.5 (13.5-18.0) g/dL ABG Oxyhemoglobin 93.5 % ABG Carboxyhemoglobin 0.8 (0.0-1.6) % ABG Methemoglobin 0.6 % Desmond Test Passed O2 Delivery Device Nasal cannula Sodium (140-148) mmol/L Potassium (3.6-5.2) mmol/L Chloride (100-108) mmol/L Carbon Dioxide (21-32) mmol/L Anion Gap (5.0-14.0) mmol/L BUN (7-18) mg/dL Creatinine (0.8-1.3) mg/dL Est Cr Clr Drug Dosing mL/min Estimated GFR (MDRD) (>60) Glucose (74-106) mg/dL Calcium (8.5-10.1) mg/dL Ahmet Results Last 24 Hours: Microbiology 05/19/18 18:00 Aerobic Blood Culture - Preliminary Blood - Venous NO GROWTH AFTER 2 DAYS Anaerobic Blood Culture - Preliminary NO GROWTH AFTER 2 DAYS 05/19/18 18:00 Aerobic Blood Culture - Preliminary Blood - Venous - Lab Draw NO GROWTH AFTER 2 DAYS Anaerobic Blood Culture - Preliminary NO GROWTH AFTER 2 DAYS Med Orders - Current: Current Medications Acetaminophen (Tylenol) 650 mg PO Q4H PRN PRN Reason: Pain (Mild 1-3)/fever Last Admin: 05/21/18 20:55 Dose: 650 mg Acetaminophen (Tylenol) 650 mg RECTAL Q4H PRN PRN Reason: Fever Last Admin: 05/22/18 04:23 Dose: 650 mg Albuterol (Proventil Neb Soln) 2.5 mg NEB Q4H PRN PRN Reason: Shortness Of Breath/wheezing Albuterol/Ipratropium (Duoneb 3.0-0.5 Mg/3 Ml) 3 ml INH ONETIME [facility] Allopurinol (Zyloprim) 100 mg PO DAILY [facility] Last Admin: 05/22/18 09:28 Dose: Not Given Aspirin (Halfprin) 81 mg PO DAILY [facility] Last Admin: 05/22/18 09:27 Dose: Not Given Benzonatate (Tessalon Perles) 100 mg PO TID PRN PRN Reason: Cough Dimethicone/Zinc Oxide (Rash Relief-Zinc Oxide Ralph) 1 gm TOP ASDIRECTED PRN PRN Reason: Rash Last Admin: 05/22/18 04:24 Dose: 5 spr Fluticasone Propionate (Flonase) 0 gm KARIN DAILY [facility] Last Admin: 05/21/18 08:39 Dose: 1 spray Furosemide (Lasix) 40 mg IVPUSH NOW ONE Stop: 05/22/18 10:31 Gabapentin (Neurontin) 300 mg PO TID [facility] Last Admin: 05/22/18 09:27 Dose: Not Given Guaifenesin/Dextromethorphan (Robitussin Dm) 10 ml PO Q4H PRN PRN Reason: Cough Insulin Glargine (Lantus Solostar) 32 units SUBCUT BEDTIME [facility] Last Admin: 05/21/18 21:07 Dose: 32 units Insulin Human Lispro (Humalog) 0 unit SUBCUT QIDACANDBED [facility]; Protocol Last Admin: 05/22/18 08:34 Dose: 2 units Insulin Human Lispro (Humalog) 5 unit SUBCUT TIDMEALS [facility] Last Admin: 05/22/18 08:37 Dose: Not Given Levothyroxine Sodium (Synthroid) 50 mcg PO ACBREAKFAST [facility] Last Admin: 05/22/18 08:26 Dose: Not Given Methylprednisolone Sodium Succinate (Solu-Medrol) 40 mg IVPUSH Q8H [facility] Ondansetron HCl (Zofran Odt) 4 mg PO Q6H PRN PRN Reason: Nausea able to take PO Oseltamivir Phosphate (Tamiflu) 30 mg PO BID [facility] Stop: 05/24/18 09:01 Last Admin: 05/22/18 09:27 Dose: Not Given Oxycodone HCl (Oxycodone) 5 mg PO Q4H PRN PRN Reason: Pain (moderate 4-6) Last Admin: 05/21/18 20:55 Dose: 5 mg Polyethylene Glycol (Miralax) 17 gm PO DAILY PRN PRN Reason: Constipation Senna/Docusate Sodium (Senna Plus) 1 tab PO BID PRN PRN Reason: Constipation Sodium Chloride (Saline Flush) 10 ml FLUSH ASDIRECTED PRN PRN Reason: Keep Vein Open Discontinued Medications Acetaminophen (Tylenol Bulk Bottle) 325 mg PO NOW ONE Stop: 05/19/18 15:48 Last Admin: 05/20/18 07:31 Dose: Not Given Acetaminophen (Tylenol) 325 mg PO NOW ONE Stop: 05/19/18 16:26 Last Admin: 05/19/18 16:33 Dose: 325 mg Gabapentin (Neurontin) 300 mg PO ONETIME ONE Stop: 05/19/18 15:47 Last Admin: 05/19/18 16:28 Dose: 300 mg Azithromycin 500 mg/ Sodium (Chloride) 250 mls @ 250 mls/hr IV ONETIME ONE Stop: 05/19/18 18:56 Last Admin: 05/20/18 07:32 Dose: Not Given Ceftriaxone Sodium 1 gm/ (Sodium Chloride) 50 mls @ 100 mls/hr IV ONETIME ONE Stop: 05/19/18 18:25 Last Admin: 05/20/18 07:32 Dose: Not Given Sodium Chloride (Normal Saline) 1,000 mls @ 125 mls/hr IV ASDIRECTED [facility] Last Admin: 05/22/18 03:23 Dose: 125 mls/hr Sodium Chloride (Normal Saline) 1,000 mls @ 500 mls/hr IV ASDIRECTED [facility] Stop: 05/20/18 16:15 Acetaminophen 1,000 mg/ Premix 100 mls @ 400 mls/hr IV NOW ONE Stop: 05/20/18 18:52 Last Admin: 05/20/18 18:45 Dose: 400 mls/hr Acetaminophen 1,000 mg/ Premix 100 mls @ 400 mls/hr IV Q6H PRN PRN Reason: Fever Stop: 05/21/18 19:12 Last Admin: 05/21/18 15:18 Dose: 400 mls/hr Sodium Chloride (Normal Saline) 1,000 mls @ 999 mls/hr IV ASDIRECTED [facility] Stop: 05/20/18 20:16 Sodium Chloride (Normal Saline) 1,000 mls @ 500 mls/hr IV ASDIRECTED [facility] Stop: 05/21/18 11:01 Insulin Glargine (Lantus Solostar) 32 units SUBCUT BEDTIME [facility] Insulin Glargine (Lantus Solostar) 16 units SUBCUT BEDTIME [facility] Stop: 05/19/18 21:01 Last Admin: 05/19/18 21:43 Dose: 16 units Ketorolac Tromethamine (Toradol) 30 mg IVPUSH ONETIME ONE Stop: 05/20/18 15:51 Last Admin: 05/20/18 16:22 Dose: 30 mg Ketorolac Tromethamine (Toradol) Confirm Administered Dose 30 mg .ROUTE .STK- MED ONE Stop: 05/20/18 15:52 Last Admin: 05/20/18 16:23 Dose: Not Given Ketorolac Tromethamine (Toradol) 15 mg IVPUSH ONETIME ONE Stop: 05/21/18 03:58 Last Admin: 05/21/18 04:06 Dose: 15 mg Ketorolac Tromethamine (Toradol) Confirm Administered Dose 30 mg .ROUTE .STK- MED ONE Stop: 05/21/18 04:04 Last Admin: 05/21/18 04:08 Dose: Not Given Levothyroxine Sodium (Synthroid) 50 mcg PO QAM [facility] Lorazepam (Ativan) 0.5 mg IVPUSH ONETIME ONE Stop: 05/20/18 14:50 Last Admin: 05/20/18 14:56 Dose: Not Given Lorazepam (Ativan) Confirm Administered Dose 2 mg .ROUTE .STK-MED ONE Stop: 05/20/18 14:53 Last Admin: 05/20/18 14:57 Dose: 2 mg Nitroglycerin (Nitrostat) 0.4 mg SL Q5M PRN PRN Reason: Chest Pain Last Admin: 05/19/18 17:37 Dose: 0.4 mg Non-Formulary Medication (Nortriptyline [Nortriptyline]) 50 mg PO BEDTIME [facility] Last Admin: 05/20/18 13:53 Dose: Not Given Oseltamivir Phosphate (Tamiflu) 75 mg PO ONETIME ONE Stop: 05/19/18 17:56 Last Admin: 05/19/18 18:36 Dose: 75 mg Oseltamivir Phosphate (Tamiflu) 75 mg PO BID [facility] Stop: 05/24/18 09:01 Oxycodone/Acetaminophen (Percocet 325-10 Mg) 1 tab PO ONETIME ONE Stop: 05/19/18 15:48 Last Admin: 05/19/18 16:28 Dose: 1 tab Sodium Chloride (Saline Flush) 10 ml FLUSH ASDIRECTED PRN PRN Reason: Keep Vein Open Warfarin Sodium (Coumadin) 5 mg PO ONETIME ONE Stop: 05/19/18 18:47 Last Admin: 05/20/18 07:33 Dose: Not Given Warfarin Sodium 2.5 mg/ (Warfarin Sodium 5 mg) 7.5 mg PO ONETIME ONE Stop: 05/20/18 09:31 Last Admin: 05/20/18 10:01 Dose: 7.5 mg Warfarin Sodium (Coumadin) 10 mg PO ONETIME ONE Stop: 05/21/18 13:01 Last Admin: 05/21/18 14:05 Dose: 10 mg - Exam Quality Assessment: Supplemental Oxygen, DVT Prophylaxis General: Mild Distress, Lethargic Lungs: Clear to Auscultation, Decreased Breath Sounds. No: Crackles, Rales, Rhonchi, Wheezing Cardiovascular: Regular Rhythm, No Murmurs, Tachycardia GI/Abdominal Exam: Soft, Non-Tender, No Organomegaly, No Distention Extremities: Non-Tender, No Pedal Edema - Problem List Review Problem List Initiated/Reviewed/Updated: Yes - My Orders Last 24 Hours: My Active Orders 05/22/18 09:59 Furosemide [Lasix] 40 mg IVPUSH NOW ONE Convert IV to Saline Lock [OM.PC] Routine 05/22/18 10:15 methylPREDNISolone Sod Succ [Solu-MEDROL] 40 mg IVPUSH Q8H - Plan Plan:: ASSESSMENT AND PLAN - Acute influenza B -. Appeared to be improving yesterday, now over the last 12 hours has experienced increase in respiratory rate and decreased level of consciousness. 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 Blood sugars remained elevated despite poor intake. -Continue long-acting insulin -Reduce short acting insulin 5 units with meals until intake improves -Low-dose sliding scale insulin Acute kidney injury - baseline of stage III kidney disease. Creatinine improved since yesterday, monitor urine output closely with diuresis -Saline lock IV -Repeat labs in the morning COPD - No evidence for exacerbation at this time with no wheezing but he is hypoxic and requiring supplemental oxygen. History of DVT and PE - INR is low this again morning at 1.5. -10 mg of warfarin today and recheck INR in the morning Maintenance issues - - DVT prophylaxis - warfarin - GI prophylaxis - not indicated - Nutrition - diabetic diet Disposition - I would anticipate discharged home with his versus longterm after the hospital stay Primary care physician - Dr Morataya
[2018-05-22] MEDS ORDERED: Furosemide 40 MG/4 ML VIAL IVPUSH ONE (10:30)
[2018-05-22] MEDS: methylPREDNISolone Sodium Succinate 40 MG/1 ML SDV IVPUSH SCH ×2 (10:48→18:35)
[2018-05-22] MEDS: Fluticasone Propionate Nasal Spray 16 GM Bottle NAS SCH (10:49)
--- NOTE | 2018-05-22 14:15 | CT ---
Chest wo Cont CLINICAL HISTORY: Progressive dyspnea and hypoxia TECHNIQUE: Transverse scans were obtained from the thoracic inlet to the lung bases without contrast. Auto dosage reduction and iterative reconstruction techniques employed. COMPARISONS: CT chest 2017 FINDINGS: There is moderate breathing motion. There is patchy pleural-based density in the right apex. This is new since prior study. There is some streaky density in both lung bases. This may represent some atelectasis. There are some small lymph nodes in the mediastinum. There are no pleural effusions. Scans in the upper abdomen show no mass or adenopathy. There are atherosclerotic changes in the aorta. IMPRESSION: Infiltrate-like density in the right apex is suspect for a right upper lobe pneumonia. Short-term follow-up following course of treatment should be considered Study is limited due to moderate breathing motion
[2018-05-22] MEDS: Morphine 2 MG/ML Syringe IVPUSH PRN ×6 (14:16→23:02)
[2018-05-22] MEDS ORDERED: Levofloxacin/Dextrose 5%-Water 750 MG in Premix Bag 1 BAG IV SCH ×2 (14:30→15:00)
[2018-05-22] MEDS: Piperacillin/Tazobactam/Dext 3.375 GM in Premix Bag 1 BAG IV SCH ×2 (16:58→22:14)
[2018-05-22] MEDS ORDERED: Enoxaparin 120 MG/0.8 ML Syringe SUBCUT SCH (17:45)
[2018-05-22] MEDS ORDERED: Warfarin 5 MG Tab PO ONE (18:00)
[2018-05-22] MEDS: Insulin Glargine,Human Rec. Analog 100 Units/ML 3 ML Pen SUBCUT SCH (20:10)
[2018-05-22] MEDS ORDERED: Furosemide 40 MG/4 ML VIAL IVPUSH STA (22:48)
[2018-05-22] MEDS ORDERED: Heparin Sodium 5,000 UNITS in Sodium Chloride 0.9% 500 ML IV SCH (23:25)
[2018-05-22] MEDS ORDERED: Heparin Sodium 5,000 Units/ML Vial ONE (23:26)
[2018-05-23] MEDS ORDERED: Sodium Chloride 0.9% 1,000 ML IV ONE
[2018-05-23] MEDS ORDERED: Dextrose 5% in Water 250 ML ONE (00:02)
[2018-05-23] MEDS ORDERED: Norepinephrine 4 MG/4 ML SDV ONE (00:02)
[2018-05-23] MEDS ORDERED: Linezolid 600 MG in Premix Bag 1 BAG IV SCH ×2 (00:45→01:00)
[2018-05-23] MEDS ORDERED: Propofol 200 MG/20 ML SDV ONE (00:50)
[2018-05-23] MEDS ORDERED: Succinylcholine 200 MG/10 ML MDV ONE (00:50)
[2018-05-23] MEDS ORDERED: Heparin Sodium 5,000 UNITS in Sodium Chloride 0.9% 500 ML IV SCH (01:00)
--- NOTE | 2018-05-23 01:10 | PCM.SN ---
- Free Text/Narrative Note: Mr. Tinajero developed increased respiratory compromise with decreased oxygen saturations this evening while on BiPAP. Blood gas she showed evidence of hypoxia despite increased FiO2. He has been intubated by anesthesia, shortly after he was placed in the ventilator developed significant hypotension with slowing of his heart rate and no palpable pulse. CPR was performed for approximately 3 minutes, he was given epinephrine and quickly thereafter blood pressure and heart rate improved. During the period of time he was given CPR he was also taken off the ventilator and bagged. Since then he's received IV fluids and pressure as well as heart rates have stabilized. He has adequate oxygenation on current ventilator settings. I did discuss the events of this evening with his , she states despite the fact that he wanted to be a full code at the time of admission she does not think he would want mechanical ventilation for further CPR. She is going to discuss this with her children and get back to us concerning further directives. Chest x-ray shows no obvious infiltrates but does show some evidence of atelectasis. On physical examination there are bilateral breath sounds, no obvious wheezes, with some rhonchi. Arterial blood gases post intubation and mechanical ventilation show good oxygenation with a mixed metabolic acidosis and respiratory alkalosis. PH is within desired range. Metabolic acidosis likely secondary to lower blood pressure and transient need for CPR. We'll plan to continue the ventilator through the night with IV fluids for maintenance of pressures. Antibiotics were started earlier in the day and will add additional coverage at this time with Zyvox. 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 His INR is subtherapeutic today and he was unable to take his warfarin because of decreased level of consciousness. We are not able to use IV heparin or low molecular weight heparin because of his low platelet count. White blood cell count remains low and he has not had significant temperature elevation. BMP shows worsening of renal function with creatinine of 2.7.
[2018-05-23] MEDS: Insulin Lispro 100 Unit/ML 3 ML KwikPen SUBCUT SCH ×2 (01:33→08:05)
[2018-05-23] MEDS: Acetaminophen 650 MG Supp RECTAL PRN ×2 (01:35→05:36)
--- NOTE | 2018-05-23 01:47 | PCM.SN ---
- Free Text/Narrative Note: Troponin level is come back significantly elevated at 27, EKG shows no acute ST segment elevation. This likely represents a non-ST segment elevation myocardial infarction. I discussed these findings with his who strongly feels that the patient would not want to be transferred to tertiary care center or consider any further cardiac interventions. We are unable to use heparin intravenously because of his thrombocytopenia. At the present time she would like us to continue aggressive interventions until family arrives later this morning. After that she feels that they would withdraw aggressive support and interventions, because she feels that this is most consistent with his previously expressed wishes. She has an advanced directive at home but states his wish to be DNR/DNI and she will bring that in with her.
[2018-05-23] MEDS: methylPREDNISolone Sodium Succinate 40 MG/1 ML SDV IVPUSH SCH (02:07)
[2018-05-23] MEDS ORDERED: Lactated Ringers 1,000 ML IV SCH (02:30)
--- NOTE | 2018-05-23 03:24 | ANES ---
DATE OF SERVICE: 05/23/2018 PROCEDURE PERFORMED: Intubation and arterial line placement. TECHNIQUE: I was called in late this evening by the ICU for a gentleman with a respiratory failure with confirmed influenza B in the ICU. I arrived at the bedside at approximately 2230 hours. The patient was on BiPAP 100% FiO2. O2 saturations were anywhere from 85% to 87%. Blood pressure was in the 80s to 90s systolic. The patient was responsive to pain. He did have eyes slightly open. Ambu bag was readied. Suction was readied. I then proceeded to give the patient 30 mg of propofol and 180 of succinylcholine. MACH3 blade was used for direct laryngoscopy. Great 2 view of the vocal cords was noted. A fair amount of secretions in the back of the patient's throat. An 8.0 endotracheal tube was placed to the vocal cords without difficulty using an intubating stylet. Stylet was pulled. Tube was secured at 25 cm at the lip. Positive end-tidal CO2 change was noted and bilateral breath sounds were decreased, but noted. O2 saturation dipped only to 84%, but after intubation it was anywhere from 93% to 98%. The patient was Ambu'd until RT got there to place the patient on a ventilator. After the propofol was given, blood pressures were 76/44 via the noninvasive blood pressure. Chest x-ray was done and confirmed to have the ET tube in the correct spot. I then turned my attention to the arterial line. Left radial pulse was easily palpable. The site was cleaned with ChloraPrep. A 20-gauge Arrow catheter was then inserted above the left radial. Blood flash was noted. Wire was then threaded and catheter was threaded above the wire without difficulty. Bright red blood return was noted. Arterial line was then hooked up. Appropriate waveform was then noted on the monitor. Arterial line was then secured using a 2-0 Prolene stitch, Tegaderm and tape. The patient tolerated the procedure without difficulty. Dr. Honecyutt was at bedside shortly after intubation to check on the patient. Castillo Fitch CRNA /[id number]
[2018-05-23] MEDS: Piperacillin/Tazobactam/Dext 3.375 GM in Premix Bag 1 BAG IV SCH (03:42)
[2018-05-23] MEDS ORDERED: Insulin Lispro 100 Units/ML 3 ML Vial SUBCUT ONE ×2 (05:45→06:15)
[2018-05-23] MEDS: Morphine 2 MG/ML Syringe IVPUSH PRN ×2 (06:13→08:15)
[2018-05-23] MEDS: Levothyroxine 50 MCG Tab PO SCH (07:44)
[2018-05-23 07:59] VITALS: BP 67/49
--- NOTE | 2018-05-23 09:32 | PCM.DCSUM1 ---
Discharge Summary - Hospital Course Brief History: Mr. Tinajero was a 77-year-old gentleman who was admitted through the emergency department with confusion and fever secondary to influenza. - Discharge Data Discharge Date: 05/23/18 Discharge Disposition: 20 Preliminary Cause of *Q: Multi System Organ Failure Event(s) Leading to Patient's *Q: Non-ST segment elevation myocardial infarction, hypoxic respiratory failure, influenza B, acute kidney injury. Condition: - Discharge Diagnosis/Problem(s) (1) Acute kidney injury SNOMED Code(s): 34221252 ICD Code: N17.9 - ACUTE KIDNEY FAILURE, UNSPECIFIED Status: Acute Current Visit: Yes (2) Palliative care status SNOMED Code(s): 456543539 ICD Code: Z51.5 - ENCOUNTER FOR PALLIATIVE CARE Status: Acute Current Visit: Yes (3) Non-ST elevated myocardial infarction SNOMED Code(s): 57411320 ICD Code: I21.4 - NON-ST ELEVATION (NSTEMI) MYOCARDIAL INFARCTION Status: Acute Current Visit: Yes (4) Acute on chronic respiratory failure with hypoxia SNOMED Code(s): 58667819, 981545126 ICD Code: J96.21 - ACUTE AND CHRONIC RESPIRATORY FAILURE WITH HYPOXIA Status: Acute Current Visit: Yes (5) Pneumonia SNOMED Code(s): 874314579 ICD Code: J18.9 - PNEUMONIA, UNSPECIFIED ORGANISM Status: Acute Current Visit: Yes (6) Influenza B SNOMED Code(s): 03590537 ICD Code: J10.1 - FLU DUE TO OTH IDENT INFLUENZA VIRUS W OTH RESP MANIFEST Status: Acute Current Visit: Yes (7) CKD (chronic kidney disease), stage III SNOMED Code(s): 894182419 ICD Code: N18.3 - CHRONIC KIDNEY DISEASE, STAGE 3 (MODERATE) Status: Chronic Current Visit: Yes (8) Type 2 diabetes mellitus SNOMED Code(s): 31464953 ICD Code: E11.9 - TYPE 2 DIABETES MELLITUS WITHOUT COMPLICATIONS Status: Chronic Current Visit: No Qualifiers: Diabetes mellitus termite inspector insulin use: with fci use Diabetes mellitus complication status: with neurologic complications Diabetes mellitus complication detail: with polyneuropathy Qualified Code(s): E11.42 - Type 2 diabetes mellitus with diabetic polyneuropathy; Z79.4 - termite inspector (current) use of insulin - Patient Summary/Data Hospital Course: Mr. Tinajero presented to the emergency room with a multitude of complaints. He reports that he suddenly became fatigued and weak. He's had increased pain in his right foot which is consistent with his chronic peripheral neuropathy pain. He says that when he gets sick his pain often gets worse. He has had some mild myalgias as well as a mild cough and mild runny nose. He's been having intermittent episodes of sharp stabbing chest pain better or worse with respiration. He has had these off and on for some time but they have been worse in the past 24 hours. These are mild to moderate pains. They're often better before he has a chance to take anything. No obvious trigger to make them worse. He reports a mild lower abdominal pain that comes and goes. No change in bowel or bladder habits from baseline. He's not sure if he's had any fevers. He has a fever at the time of the evaluation but does not feel the sensation of being warm. He seems to be a little bit confused and his confirms that he is not as sharp as usual today. Workup in the emergency room was fairly unrevealing with laboratory studies. Chest x-ray was clear. Influenza B was positive. He will be admitted for management with his confusion and weakness. On admission he was started on Tamiflu for management of his influenza B. Over the course of the next few days hospitalization he became progressively more short of breath with increase in respiratory rate. Follow-up chest x-ray showed no obvious infiltrates and his white blood cell count had been normal in the emergency department and remained normal throughout hospitalization. He continued to experience intermittent temperature elevations with associated tachycardia and increasing respiratory rate. The day prior to chest x-ray still showed no evidence of significant infiltrate. CT scan of the chest was obtained and did show evidence of a right lung infiltrate. Because of progressive respiratory compromise and persistent temperature elevations he was started on empiric broad-spectrum IV antibiotic therapy with cefazolin and levofloxacin. He also had ongoing difficulty with renal insufficiency and acute kidney injury on chronic kidney disease. This improved somewhat with IV fluids with increased respiratory compromise he was given diuretic therapy intravenously this did not improve respiratory situation and did cause some further worsening of his renal insufficiency. Because of progressive respiratory compromise he was placed on noninvasive positive pressure ventilation on the afternoon prior to . Unfortunately he developed worsening respiratory failure and on the late evening of the day prior to required intubation and mechanical ventilation. Family was aware of the intubation and his felt that it was possibly something the patient would not want. She did find an advanced directive at home stating that he wished to be DNR/DNI. She requested that we continue mechanical ventilation until family could arrive but then was in favor of withdrawing support. Shortly after being placed on the ventilator he developed progressive respiratory compromise with hypotension and bradycardia. He did receive a brief episode of CPR and was bagged for ventilation. A single dose of epinephrine was given and shortly after that heart rate and blood pressure improved and he was placed back on ventilator with good oxygenation. Was felt likely that he had some type of mucous plugging in the endotracheal tube or major airway. Laboratory studies were obtained and his troponin was found to be markedly elevated at 27. EKG showed no acute ST segment elevation and he was felt to have a non-ST segment elevation myocardial infarction. I discussed these findings with his as well and she did not want him transferred to tertiary care center for further cardiac evaluation. She requested ongoing support until family could arrive comfort measures as needed. On the morning of blood pressure dropped and heart rate slowly decreased, no attempts were made at resuscitation as per the patient's and family's previously expressed wishes. - Discharge Plan Home Medications: Home Meds Albuterol Sulfate [Proair Hfa] 2 puff IH Q6HR PRN 05/21/14 [History] Allopurinol [Zyloprim] 100 mg PO DAILY 05/21/14 [History] Furosemide 60 mg PO DAILY 05/21/14 [History] Insulin Aspart [NovoLOG] 10 unit SQ TIDMEALS PRN 05/21/14 [History] Insulin Detemir [Levemir Flextouch] 32 unit SQ BEDTIME 05/21/14 [History] Levothyroxine [Synthroid] 50 mcg PO QAM 05/21/14 [History] Lovastatin 80 mg PO BEDTIME 05/21/14 [History] Nitroglycerin [Nitrostat] 0.4 mg SL ASDIRECTED PRN 05/21/14 [History] Warfarin Sodium 7.5 mg PO ASDIRECTED 05/21/14 [History] Aspirin [Low Dose Aspirin EC] 81 mg PO DAILY 05/15/15 [History] Fluticasone Propionate [Flonase] 2 sprays IN DAILY 05/15/15 [History] Cholecalciferol (Vitamin D3) [Vitamin D3] 2,000 units PO DAILY 12/05/15 [History ] Gabapentin 1 tab PO TID 10/25/16 [History] Nortriptyline 50 mg PO BEDTIME 08/04/17 [History] Potassium Chloride [Klor-Con] 20 meq PO DAILY 05/19/18 [History] - Discharge Summary/Plan Comment DC Time >30 min.: No - Patient Data Vitals - Most Recent: Last Vital Signs Temp 97.2 F 05/23/18 07:58 Pulse 94 05/23/18 07:58 Resp 18 05/23/18 07:58 BP 67/49 L 05/23/18 07:58 Pulse Ox 83 L 05/23/18 07:58 Weight - Most Recent: 266 lb 0.015 oz I&O - Last 24 hours: Intake & Output 05/22/18 05/23/18 05/23/18 22:59 06:59 14:59 Output Total 326 Balance -326 Lab Results - Last 24 hrs: Laboratory Results - last 24 hr 05/22/18 05/23/18 05/23/18 Range/Units 22:55 00:28 00:33 WBC 4.7 (4.5-11.0) K/uL RBC 5.64 (4.30-5.90) M/uL Hgb 17.8 H (12.0-15.0) g/dL Hct 53.3 (40.0-54.0) % MCV 95 (80-98) fL MCH 32 H (27-31) pg MCHC 33 (32-36) % Plt Count 63 L (150-400) K/uL Add Manual Diff Yes Neutrophils % (Manual) 66 (36-66) % Band Neutrophils % 12 H (5-11) % Lymphocytes % (Manual) 17 L (24-44) % Monocytes % (Manual) 5 (2-6) % PT (9.5-12.0) sec INR (0.80-1.20) Puncture Site R radial line ABG pH 7.399 7.404 (7.350-7.450) ABG pCO2 35.6 25.3 L (35.0-42.0) mmHg ABG pO2 53.6 L 145.0 H (75.0-100.0) mmHg ABG HCO3 21.6 L 15.5 L (22.0-26.0) mmol/L ABG Total CO2 18.0 L 12.8 L (23.0-27.0) mmol/L ABG O2 Saturation 85.9 L 98.7 H (95.0-98.0) % ABG O2 Content 21.6 25.3 H (15.0-23.0) %vol ABG Base Excess -2.0 -6.8 mm/L ABG Hemoglobin 18.2 H 18.3 H (13.5-18.0) g/dL ABG Oxyhemoglobin 84.9 97.6 % ABG Carboxyhemoglobin 0.5 0.6 (0.0-1.6) % ABG Methemoglobin 0.7 0.5 % Desmond Test Ok O2 Delivery Device Bipap Ventilator Oxygen Flow Rate L Sodium (140-148) mmol/L Potassium (3.6-5.2) mmol/L Chloride (100-108) mmol/L Carbon Dioxide (21-32) mmol/L Anion Gap (5.0-14.0) mmol/L BUN (7-18) mg/dL Creatinine (0.8-1.3) mg/dL Est Cr Clr Drug Dosing mL/min Estimated GFR (MDRD) (>60) Glucose (74-106) mg/dL Calcium (8.5-10.1) mg/dL Magnesium (1.8-2.4) mg/dL Troponin I (0.000-0.056) ng/mL 05/23/18 05/23/18 05/23/18 Range/Units 00:35 00:35 04:45 WBC (4.5-11.0) K/uL RBC (4.30-5.90) M/uL Hgb (12.0-15.0) g/dL Hct (40.0-54.0) % MCV (80-98) fL MCH (27-31) pg MCHC (32-36) % Plt Count (150-400) K/uL Add Manual Diff Neutrophils % (Manual) (36-66) % Band Neutrophils % (5-11) % Lymphocytes % (Manual) (24-44) % Monocytes % (Manual) (2-6) % PT 14.7 H (9.5-12.0) sec INR 1.36 H (0.80-1.20) Puncture Site ABG pH (7.350-7.450) ABG pCO2 (35.0-42.0) mmHg ABG pO2 (75.0-100.0) mmHg ABG HCO3 (22.0-26.0) mmol/L ABG Total CO2 (23.0-27.0) mmol/L ABG O2 Saturation (95.0-98.0) % ABG O2 Content (15.0-23.0) %vol ABG Base Excess mm/L ABG Hemoglobin (13.5-18.0) g/dL ABG Oxyhemoglobin % ABG Carboxyhemoglobin (0.0-1.6) % ABG Methemoglobin % Desmond Test O2 Delivery Device Oxygen Flow Rate L Sodium 147 (140-148) mmol/L Potassium 4.0 (3.6-5.2) mmol/L Chloride 113 H (100-108) mmol/L Carbon Dioxide 18 L (21-32) mmol/L Anion Gap 16.2 H (5.0-14.0) mmol/L BUN 53 H (7-18) mg/dL Creatinine 2.7 H (0.8-1.3) mg/dL Est Cr Clr Drug Dosing 24.69 mL/min Estimated GFR (MDRD) 23 L (>60) Glucose 394 H (74-106) mg/dL Calcium 8.6 (8.5-10.1) mg/dL Magnesium (1.8-2.4) mg/dL Troponin I 27.197 H* (0.000-0.056) ng/mL 05/23/18 05/23/18 05/23/18 Range/Units 04:45 04:45 04:45 WBC 4.1 L (4.5-11.0) K/uL RBC 5.42 (4.30-5.90) M/uL Hgb 16.6 H (12.0-15.0) g/dL Hct 50.9 (40.0-54.0) % MCV 94 (80-98) fL MCH 31 (27-31) pg MCHC 33 (32-36) % Plt Count 60 L (150-400) K/uL Add Manual Diff Yes Neutrophils % (Manual) 63 (36-66) % Band Neutrophils % 22 H (5-11) % Lymphocytes % (Manual) 10 L (24-44) % Monocytes % (Manual) 5 (2-6) % PT (9.5-12.0) sec INR (0.80-1.20) Puncture Site Line ABG pH 7.465 H (7.350-7.450) ABG pCO2 25.3 L (35.0-42.0) mmHg ABG pO2 64.4 L (75.0-100.0) mmHg ABG HCO3 17.9 L (22.0-26.0) mmol/L ABG Total CO2 14.8 L (23.0-27.0) mmol/L ABG O2 Saturation 93.1 L (95.0-98.0) % ABG O2 Content 22.8 (15.0-23.0) %vol ABG Base Excess -3.4 mm/L ABG Hemoglobin 17.7 (13.5-18.0) g/dL ABG Oxyhemoglobin 92.1 % ABG Carboxyhemoglobin 0.4 (0.0-1.6) % ABG Methemoglobin 0.7 % Desmond Test O2 Delivery Device Bipap Oxygen Flow Rate L Sodium 147 (140-148) mmol/L Potassium 3.8 (3.6-5.2) mmol/L Chloride 112 H (100-108) mmol/L Carbon Dioxide 18 L (21-32) mmol/L Anion Gap 20.8 H (5.0-14.0) mmol/L BUN 60 H (7-18) mg/dL Creatinine 2.9 H (0.8-1.3) mg/dL Est Cr Clr Drug Dosing 22.99 mL/min Estimated GFR (MDRD) 21 L (>60) Glucose 426 H* (74-106) mg/dL Calcium 8.5 (8.5-10.1) mg/dL Magnesium 2.2 (1.8-2.4) mg/dL Troponin I 25.721 H* (0.000-0.056) ng/mL NENITA Results - Last 24 hrs: Microbiology 05/19/18 18:00 Aerobic Blood Culture - Preliminary Blood - Venous NO GROWTH AFTER 3 DAYS Anaerobic Blood Culture - Preliminary NO GROWTH AFTER 3 DAYS 05/19/18 18:00 Aerobic Blood Culture - Preliminary Blood - Venous - Lab Draw NO GROWTH AFTER 3 DAYS Anaerobic Blood Culture - Preliminary NO GROWTH AFTER 3 DAYS Med Orders - Current: Current Medications Acetaminophen (Tylenol) 650 mg PO Q4H PRN PRN Reason: Pain (Mild 1-3)/fever Last Admin: 05/21/18 20:55 Dose: 650 mg Acetaminophen (Tylenol) 650 mg RECTAL Q4H PRN PRN Reason: Fever Last Admin: 05/23/18 05:36 Dose: 650 mg Albuterol (Proventil Neb Soln) 2.5 mg NEB Q4H PRN PRN Reason: Shortness Of Breath/wheezing Last Admin: 05/22/18 21:44 Dose: 2.5 mg Albuterol/Ipratropium (Duoneb 3.0-0.5 Mg/3 Ml) 3 ml INH ONETIME [facility] Allopurinol (Zyloprim) 100 mg PO DAILY [facility] Last Admin: 05/22/18 09:28 Dose: Not Given Aspirin (Halfprin) 81 mg PO DAILY [facility] Last Admin: 05/22/18 09:27 Dose: Not Given Benzonatate (Tessalon Perles) 100 mg PO TID PRN PRN Reason: Cough Dimethicone/Zinc Oxide (Rash Relief-Zinc Oxide [place]) 1 gm TOP ASDIRECTED PRN PRN Reason: Rash Last Admin: 05/22/18 04:24 Dose: 5 spr Fluticasone Propionate (Flonase) 0 gm KARIN DAILY [facility] Last Admin: 05/22/18 10:49 Dose: 2 spray Gabapentin (Neurontin) 300 mg PO TID [facility] Last Admin: 05/22/18 20:05 Dose: Not Given Guaifenesin/Dextromethorphan (Robitussin Dm) 10 ml PO Q4H PRN PRN Reason: Cough Piperacillin/Tazobactam/ (Dextrose 3.375 gm/ Premix) 50 mls @ 100 mls/hr IV Q6H [facility] Stop: 05/23/18 11:00 Last Admin: 05/23/18 03:42 Dose: 100 mls/hr Levofloxacin/Dextrose 750 mg/ (Premix) 150 mls @ 100 mls/hr IV Q48H [facility] Last Admin: 05/22/18 15:24 Dose: 100 mls/hr Linezolid 600 mg/ Premix 300 mls @ 300 mls/hr IV Q12H [facility] Last Admin: 05/23/18 02:07 Dose: 300 mls/hr Lactated Ringer's (Ringers, Lactated) 1,000 mls @ 125 mls/hr IV ASDIRECTED [facility] Piperacillin Sod/Tazobactam (Sod 2.25 gm/ Sodium Chloride) 50 mls @ 100 mls/hr IV Q6H [facility] Insulin Glargine (Lantus Solostar) 32 units SUBCUT BEDTIME [facility] Last Admin: 05/22/18 20:10 Dose: 32 units Insulin Human Lispro (Humalog) 0 unit SUBCUT Q6H [facility]; Protocol Last Admin: 05/23/18 08:05 Dose: 15 units Levothyroxine Sodium (Synthroid) 50 mcg PO ACBREAKFAST [facility] Last Admin: 05/23/18 07:44 Dose: Not Given Methylprednisolone Sodium Succinate (Solu-Medrol) 40 mg IVPUSH Q8H [facility] Last Admin: 05/23/18 02:07 Dose: 40 mg Morphine Sulfate (Morphine) 2 mg IVPUSH Q1H PRN PRN Reason: Pain Last Admin: 05/23/18 08:15 Dose: 2 mg Ondansetron HCl (Zofran Odt) 4 mg PO Q6H PRN PRN Reason: Nausea able to take PO Oseltamivir Phosphate (Tamiflu) 30 mg PO BID [facility] Stop: 05/24/18 09:01 Last Admin: 05/22/18 20:05 Dose: Not Given Oxycodone HCl (Oxycodone) 5 mg PO Q4H PRN PRN Reason: Pain (moderate 4-6) Last Admin: 05/21/18 20:55 Dose: 5 mg Polyethylene Glycol (Miralax) 17 gm PO DAILY PRN PRN Reason: Constipation Senna/Docusate Sodium (Senna Plus) 1 tab PO BID PRN PRN Reason: Constipation Sodium Chloride (Saline Flush) 10 ml FLUSH ASDIRECTED PRN PRN Reason: Keep Vein Open Discontinued Medications Acetaminophen (Tylenol Bulk Bottle) 325 mg PO NOW ONE Stop: 05/19/18 15:48 Last Admin: 05/20/18 07:31 Dose: Not Given Acetaminophen (Tylenol) 325 mg PO NOW ONE Stop: 05/19/18 16:26 Last Admin: 05/19/18 16:33 Dose: 325 mg Enoxaparin Sodium (Lovenox) 120 mg SUBCUT Q12H [facility] Last Admin: 05/22/18 18:26 Dose: Not Given Furosemide (Lasix) 40 mg IVPUSH NOW ONE Stop: 05/22/18 10:31 Last Admin: 05/22/18 10:15 Dose: 40 mg Furosemide (Lasix) 40 mg IVPUSH ONETIME STA Stop: 05/22/18 22:49 Last Admin: 05/22/18 22:56 Dose: 40 mg Gabapentin (Neurontin) 300 mg PO ONETIME ONE Stop: 05/19/18 15:47 Last Admin: 05/19/18 16:28 Dose: 300 mg Heparin Sodium (Porcine) (Heparin Sodium) Confirm Administered Dose 5,000 units .ROUTE .STK-MED ONE Stop: 05/22/18 23:27 Last Admin: 05/23/18 01:46 Dose: 5,000 units Azithromycin 500 mg/ Sodium (Chloride) 250 mls @ 250 mls/hr IV ONETIME ONE Stop: 05/19/18 18:56 Last Admin: 05/20/18 07:32 Dose: Not Given Ceftriaxone Sodium 1 gm/ (Sodium Chloride) 50 mls @ 100 mls/hr IV ONETIME ONE Stop: 05/19/18 18:25 Last Admin: 05/20/18 07:32 Dose: Not Given Sodium Chloride (Normal Saline) 1,000 mls @ 125 mls/hr IV ASDIRECTED [facility] Last Admin: 05/22/18 03:23 Dose: 125 mls/hr Sodium Chloride (Normal Saline) 1,000 mls @ 500 mls/hr IV ASDIRECTED [facility] Stop: 05/20/18 16:15 Acetaminophen 1,000 mg/ Premix 100 mls @ 400 mls/hr IV NOW ONE Stop: 05/20/18 18:52 Last Admin: 05/20/18 18:45 Dose: 400 mls/hr Acetaminophen 1,000 mg/ Premix 100 mls @ 400 mls/hr IV Q6H PRN PRN Reason: Fever Stop: 05/21/18 19:12 Last Admin: 05/21/18 15:18 Dose: 400 mls/hr Sodium Chloride (Normal Saline) 1,000 mls @ 999 mls/hr IV ASDIRECTED [facility] Stop: 05/20/18 20:16 Sodium Chloride (Normal Saline) 1,000 mls @ 500 mls/hr IV ASDIRECTED [facility] Stop: 05/21/18 11:01 Levofloxacin/Dextrose 750 mg/ (Premix) 150 mls @ 100 mls/hr IV Q24H OTONIEL Propofol (Diprivan 100 Ml) Confirm Administered Dose 100 mls @ as directed .ROUTE .STK-MED ONE Stop: 05/22/18 23:59 Last Admin: 05/23/18 01:28 Dose: Not Given Dextrose/Water (Dextrose 5% In Water) Confirm Administered Dose 250 mls @ as directed .ROUTE .STK-MED ONE Stop: 05/23/18 00:03 Last Admin: 05/23/18 01:06 Dose: Not Given Linezolid 600 mg/ Premix 300 mls @ 300 mls/hr IV Q12H [facility] Sodium Chloride (Normal Saline) 1,000 mls @ 999 mls/hr IV .BOLUS ONE Stop: 05/23/18 01:00 Last Admin: 05/23/18 00:00 Dose: 999 mls/hr Insulin Glargine (Lantus Solostar) 32 units SUBCUT BEDTIME [facility] Insulin Glargine (Lantus Solostar) 16 units SUBCUT BEDTIME [facility] Stop: 05/19/18 21:01 Last Admin: 05/19/18 21:43 Dose: 16 units Insulin Human Lispro (Humalog) 0 unit SUBCUT QIDACANDBED [facility]; Protocol Last Admin: 05/22/18 20:09 Dose: 5 units Insulin Human Lispro (Humalog) 5 unit SUBCUT TIDMEALS [facility] Last Admin: 05/22/18 17:49 Dose: 5 units Insulin Human Lispro (Humalog) 14 unit SUBCUT ONETIME ONE Stop: 05/23/18 05:46 Last Admin: 05/23/18 06:03 Dose: 14 units Insulin Human Lispro (Humalog) 14 unit SUBCUT ONETIME ONE Stop: 05/23/18 06:16 Last Admin: 05/23/18 06:29 Dose: Not Given Ketorolac Tromethamine (Toradol) 30 mg IVPUSH ONETIME ONE Stop: 05/20/18 15:51 Last Admin: 05/20/18 16:22 Dose: 30 mg Ketorolac Tromethamine (Toradol) Confirm Administered Dose 30 mg .ROUTE .STK- MED ONE Stop: 05/20/18 15:52 Last Admin: 05/20/18 16:23 Dose: Not Given Ketorolac Tromethamine (Toradol) 15 mg IVPUSH ONETIME ONE Stop: 05/21/18 03:58 Last Admin: 05/21/18 04:06 Dose: 15 mg Ketorolac Tromethamine (Toradol) Confirm Administered Dose 30 mg .ROUTE .STK- MED ONE Stop: 05/21/18 04:04 Last Admin: 05/21/18 04:08 Dose: Not Given Levothyroxine Sodium (Synthroid) 50 mcg PO QAM OTONIEL Lorazepam (Ativan) 0.5 mg IVPUSH ONETIME ONE Stop: 05/20/18 14:50 Last Admin: 05/20/18 14:56 Dose: Not Given Lorazepam (Ativan) Confirm Administered Dose 2 mg .ROUTE .STK-MED ONE Stop: 05/20/18 14:53 Last Admin: 05/20/18 14:57 Dose: 2 mg Nitroglycerin (Nitrostat) 0.4 mg SL Q5M PRN PRN Reason: Chest Pain Last Admin: 05/19/18 17:37 Dose: 0.4 mg Non-Formulary Medication (Nortriptyline [Nortriptyline]) 50 mg PO BEDTIME [facility] Last Admin: 05/20/18 13:53 Dose: Not Given Norepinephrine Bitartrate (Levophed) Confirm Administered Dose 4 mg .ROUTE .STK- MED ONE Stop: 05/23/18 00:03 Last Admin: 05/23/18 01:06 Dose: Not Given Oseltamivir Phosphate (Tamiflu) 75 mg PO ONETIME ONE Stop: 05/19/18 17:56 Last Admin: 05/19/18 18:36 Dose: 75 mg Oseltamivir Phosphate (Tamiflu) 75 mg PO BID [facility] Stop: 05/24/18 09:01 Oxycodone/Acetaminophen (Percocet 325-10 Mg) 1 tab PO ONETIME ONE Stop: 05/19/18 15:48 Last Admin: 05/19/18 16:28 Dose: 1 tab Propofol (Diprivan 20 Ml) Confirm Administered Dose 200 mg .ROUTE .STK-MED ONE Stop: 05/23/18 00:51 Sodium Chloride (Saline Flush) 10 ml FLUSH ASDIRECTED PRN PRN Reason: Keep Vein Open Succinylcholine Chloride (Quelicin) Confirm Administered Dose 200 mg .ROUTE .STK -MED ONE Stop: 05/23/18 00:51 Warfarin Sodium (Coumadin) 5 mg PO ONETIME ONE Stop: 05/19/18 18:47 Last Admin: 05/20/18 07:33 Dose: Not Given Warfarin Sodium 2.5 mg/ (Warfarin Sodium 5 mg) 7.5 mg PO ONETIME ONE Stop: 05/20/18 09:31 Last Admin: 05/20/18 10:01 Dose: 7.5 mg Warfarin Sodium (Coumadin) 10 mg PO ONETIME ONE Stop: 05/21/18 13:01 Last Admin: 05/21/18 14:05 Dose: 10 mg Warfarin Sodium (Coumadin) 10 mg PO ONETIME ONE Stop: 05/22/18 18:01 Last Admin: 05/22/18 17:51 Dose: Not Given Comments::
[2018-05-23] MEDS ORDERED: Piperacillin/Tazobactam 2.25 GM in Sodium Chloride 0.9% 50 ML IV SCH (16:00)
== END 2018-05-23 16:15 | disposition expired | DRG 208 ==
LOC: JP.ED 12:36 → JP.ICU 18:34
PROVIDERS: ADMIT Internal Medicine; ATTEND Internal Medicine
PROC: 5A1935Z Respiratory Ventilation, Less than 24 Consecutive Hours (ICD-10-PCS; principal; 2018-05-23)
PROC: 0BH17EZ Insertion of Endotracheal Airway into Trachea, Via Natural or Artificial Opening (ICD-10-PCS; 2018-05-23)
PROC: 03HC33Z Insertion of Infusion Device into Left Radial Artery, Percutaneous Approach (ICD-10-PCS; 2018-05-23)
PROC: 5A12012 Performance of Cardiac Output, Single, Manual (ICD-10-PCS; 2018-05-23)
PROC: 5A09357 Assistance with Respiratory Ventilation, Less than 24 Consecutive Hours, Continuous Positive Airway Pressure (ICD-10-PCS; 2018-05-23)
DX: J10.1 Influenza due to other identified influenza virus with other respiratory manifestations (principal); I21.4 Non-ST elevation (NSTEMI) myocardial infarction; J96.21 Acute and chronic respiratory failure with hypoxia; N17.9 Acute kidney failure, unspecified; E87.2 Acidosis; E87.3 Alkalosis; Z51.5 Encounter for palliative care; I12.9 Hypertensive chronic kidney disease with stage 1 through stage 4 chronic kidney disease, or unspecified chronic kidney disease; J18.9 Pneumonia, unspecified organism; E11.22 Type 2 diabetes mellitus with diabetic chronic kidney disease; N18.3 Chronic kidney disease, stage 3 (moderate); E11.42 Type 2 diabetes mellitus with diabetic polyneuropathy; D69.6 Thrombocytopenia, unspecified; R53.1 Weakness; R41.0 Disorientation, unspecified; R07.9 Chest pain, unspecified; J44.9 Chronic obstructive pulmonary disease, unspecified; I25.10 Atherosclerotic heart disease of native coronary artery without angina pectoris; Z86.718 Personal history of other venous thrombosis and embolism; Z86.711 Personal history of pulmonary embolism; E03.9 Hypothyroidism, unspecified; R79.1 Abnormal coagulation profile; Z87.891 Personal history of nicotine dependence; Z79.4 Long term (current) use of insulin; I25.2 Old myocardial infarction; E78.00 Pure hypercholesterolemia, unspecified; K59.09 Other constipation; Z87.11 Personal history of peptic ulcer disease; F32.9 Major depressive disorder, single episode, unspecified; Z92.3 Personal history of irradiation; Z85.46 Personal history of malignant neoplasm of prostate; M54.9 Dorsalgia, unspecified; G89.29 Other chronic pain; M54.2 Cervicalgia; Z95.5 Presence of coronary angioplasty implant and graft; H91.90 Unspecified hearing loss, unspecified ear; Z90.49 Acquired absence of other specified parts of digestive tract; E66.9 Obesity, unspecified; Z68.37 Body mass index [BMI] 37.0-37.9, adult; Z79.82 Long term (current) use of aspirin; Z79.01 Long term (current) use of anticoagulants; Z79.899 Other long term (current) drug therapy; Z91.040 Latex allergy status; Z88.5 Allergy status to narcotic agent; Z88.7 Allergy status to serum and vaccine; Z88.8 Allergy status to other drugs, medicaments and biological substances; Z91.048 Other nonmedicinal substance allergy status
CPT/HCPCS: 36415; 71046; 80053; 83605; 84484; 85025; 85610; 87040 ×2; 87804 ×2; 93005 ×4; 93010 ×3; 99284; 99285; A9270 ×7; 36600; 51702; 71045; 71045-26; 71250; 71250-26; 80048; 81001; 82803; 82962; 83735; 85027; 94002; 94003; 94640; 94660; J0131; J0330; J1644; J1815; J1815-GY; J1885; J1940; J1956; J2020; J2060; J2270; J2543; J2704; J2920; J7030; J7040